=== PATIENT | female | born 1985 | race Caucasian/White ===

== ENCOUNTER 2017-07-08 14:59 | Inpatient (IN) | payer SELFPAY ==
[~2017-07-08] VITALS: Ht 167.6 cm; Wt 143.3 kg
[~2017-07-08 14:59] MED LIST: ACET-2222 PO; ACHD5005 PO; CEFU500T5 PO; CEPH-38 PO; CEPH500C PO; CLN150C PO; HYDR-3720 PO; HYDR1TAB8 PO; IBP600T1 PO; PREN1TAB39 PO
[2017-07-08 15:30] LABS: KETONES,URINE NEGATIVE (NEGATIVE); LEUKOCYTE ESTERASE ,URINE 2+ (NEGATIVE); NITRITE,URINE NEGATIVE (NEGATIVE); PH,URINE 6 (5-9); PROTEIN,URINE 2+ (NEGATIVE); UROBILINOGEN,URINE 4 MG/DL (NORMAL)
[2017-07-08 15:30] LABS: BASOPHILS % (AUTO) 0 % (0-10); EOSINOPHILS % (AUTO) 9 % (0-10); LYMPHOCYTES # (AUTO) 2.3 X 10^3 (1.0-4.0); LYMPHOCYTES % (AUTO) 19 % (12-44); MEAN CORPUSCULAR HEMOGLOBIN 30 PG (25-34); MEAN CORPUSCULAR HGB CONC 34 G/DL (32-36); MEAN CORPUSCULAR VOLUME 87 FL (80-99); MEAN PLATELET VOLUME 9.9 FL (7.4-10.4); MONOCYTES # (AUTO) 0.6 X 10^3 (0.0-1.0); MONOCYTES % (AUTO) 5 % (0-12); NEUTROPHILS # (AUTO) 7.7 X 10^3 (1.8-7.8); NEUTROPHILS % (AUTO) 66 % (42-75); PLATELET COUNT 277 10^3/uL (130-400); RED BLOOD COUNT 4.39 10^6/uL (4.35-5.85); RED CELL DISTRIBUTION WIDTH 13.1 % (10.0-14.5); WHITE BLOOD COUNT 11.7 10^3/uL (4.3-11.0)
[2017-07-08] MEDS ORDERED: fentaNYL INJECTION 100 MCG/2 ML AMP IVP ONE ×2 (15:30→17:15)
[2017-07-08] MEDS ORDERED: NS IV 1000 ML 1,000 ML IV SCH (15:30)
--- NOTE | 2017-07-08 15:30 | ED Back Pain ---
General Chief Complaint: Back Problems Stated Complaint: ABD CRAMPING/BACK PAIN Source of Information: Patient, EMS Notes Reviewed Exam Limitations: No Limitations History of Present Illness Time Seen by Provider: 15:23 Initial Comments This 31-year-old white female presents with complaint of lower thoracic upper lumbar pain that began approximately 36 hours ago. Patient was seen at [facility] and given a muscle relaxant which she has taken without improvement. The patient's pain is described as sharp in nature and radiates around the upper abdomen and the bandlike pattern. The patient describes sharp pain that is made worse with moving. The patient states that the pain is an 8 on a 10 scale. The patient's pain does not radiate down the legs. There is no associated weakness in the extremities. However there is also no dysuria or hematuria suggestive of a stone. There is no associated GI symptoms such as nausea or vomiting. Further history taking, however, patient relates that she has had previous kidney stones. Allergies and Home Medications Allergies Coded Allergies: No Known Drug Allergies (Verified , 07/08/17) Constitutional: No chills, No fever EENTM: No hearing loss Respiratory: No cough Cardiovascular: No chest pain Gastrointestinal: No abdominal pain, No diarrhea, No nausea, No vomiting Genitourinary: No dysuria, No frequency, No hematuria, other (dark urine noted in the ED.) : No Musculoskeletal: back pain Skin: No rash Psychiatric/Neurological: No Symptoms Reported Past Goqtoyk-Dbfylz-Rbrhqb Hx Patient Social History Alcohol Use: Denies Use Recreational Drug Use: No Smoking Status: Never a Smoker 2nd Hand Smoke Exposure: No Recent Foreign Travel: No Contact w/Someone Who Travel: No Recent Hopitalizations: No (CHILDBIRTH 2007 AND T & A 2001) Physical Abuse: No Sexual Abuse: No Mistreated: No Fear: No Immunizations Up To Date Tetanus Booster (TDap): Unknown Seasonal Allergies Seasonal Allergies: Yes Surgeries History of Surgeries: No (T & A 2001 WISDOM TEETH 2009) Respiratory History of Respiratory Disorde: No Cardiovascular History of Cardiac Disorders: No Neurological History of Neurological Disord: No Reproductive System Hx Reproductive Disorders: No Female Reproductive Disorders: Denies Gastrointestinal History of Gastrointestinal Di: No Musculoskeletal History of Musculoskeletal Dis: No Endocrine History of Endocrine Disorders: No Cancer History of Cancer: No Psychosocial History of Psychiatric Problem: No Suicide Risk Score: 0 Integumentary History of Skin or Integumenta: No Blood Transfusions History of Blood Disorders: No Reviewed Nursing Assessment Reviewed/Agree w Nursing PMH: Yes Family Medical History Significant Family History: No Pertinent Family Hx Physical Exam Vital Signs Vital Sign - Last 12Hours 07/08/17 15:17 Temp 98.3 Pulse 107 Resp 18 B/P (MAP) 133/89 Pulse Ox 99 Capillary Refill : General Appearance: WD/WN, Mild Distress HEENT: TMs Normal, Normal ENT Inspection Cardiovascular: Regular Rate, Rhythm Respiratory: Chest Non Tender, Lungs Clear Gastrointestinal: Normal Bowel Sounds, No Organomegaly, No Pulsatile Mass, Non Tender, Soft Back: Normal Inspection, No CVA Tenderness, No Vertebral Tenderness, No Decreased Range of Motion, No Muscle Spasm, Other Extremity: Normal Capillary Refill, Normal Inspection, Normal Range of Motion Neurologic/Psychiatric: Alert, Oriented x3, No Motor/Sensory Deficits, Normal Mood/Affect Skin: Normal Color, Warm/Dry Progress/Results/Core Measures Results/Orders Lab Results Laboratory Tests Test 07/08/17 15:17 07/08/17 15:22 Range/Units Urine Color KILEY H Urine Clarity SLIGHTLY CLOUDY Urine pH 6 5-9 Urine Specific [place] 1.020 1.016-1.022 Urine Protein 2+ H NEGATIVE Urine Glucose (UA) NEGATIVE NEGATIVE Urine Ketones NEGATIVE NEGATIVE Urine Nitrite NEGATIVE NEGATIVE Urine Bilirubin 1+ H NEGATIVE Urine Urobilinogen 4 H NORMAL MG/DL Urine Leukocyte Esterase 2+ H NEGATIVE Urine RBC (Auto) 3+ H NEGATIVE Urine RBC 10-25 H /HPF Urine WBC 5-10 H /HPF Urine Squamous Epithelial Cells >50 H /HPF Urine Crystals NONE /LPF Urine Bacteria MODERATE H /HPF Urine Casts NONE /LPF Urine Mucus NEGATIVE /LPF Urine Culture Indicated YES White Blood Count 11.7 H 4.3-11.0 10^3/uL Red Blood Count 4.39 4.35-5.85 10^6/uL Hemoglobin 13.1 11.5-16.0 G/DL Hematocrit 38 35-52 % Mean Corpuscular Volume 87 80-99 FL Mean Corpuscular Hemoglobin 30 25-34 PG Mean Corpuscular Hemoglobin Concent 34 32-36 G/DL Red Cell Distribution Width 13.1 10.0-14.5 % Platelet Count 277 130-400 10^3/uL Mean Platelet Volume 9.9 7.4-10.4 FL Neutrophils (%) (Auto) 66 42-75 % Lymphocytes (%) (Auto) 19 12-44 % Monocytes (%) (Auto) 5 0-12 % Eosinophils (%) (Auto) 9 0-10 % Basophils (%) (Auto) 0 0-10 % Neutrophils # (Auto) 7.7 1.8-7.8 X 10^3 Lymphocytes # (Auto) 2.3 1.0-4.0 X 10^3 Monocytes # (Auto) 0.6 0.0-1.0 X 10^3 Eosinophils # (Auto) 1.0 H 0.0-0.3 10^3/uL Basophils # (Auto) 0.0 0.0-0.1 10^3/uL Urine Test NEGATIVE NEGATIVE Sodium Level 138 135-145 MMOL/L Potassium Level 3.6 3.6-5.0 MMOL/L Chloride Level 103 98-107 MMOL/L Carbon Dioxide Level 26 21-32 MMOL/L Anion Gap 9 5-14 MMOL/L Blood Urea Nitrogen 11 7-18 MG/DL Creatinine 0.75 0.60-1.30 MG/DL Estimat Glomerular Filtration Rate > 60 BUN/Creatinine Ratio 15 Glucose Level 86 70-105 MG/DL Calcium Level 9.0 8.5-10.1 MG/DL Total Bilirubin 1.4 H 0.1-1.0 MG/DL Aspartate Amino Transf (AST/SGOT) 41 H 5-34 U/L Alanine Aminotransferase (ALT/SGPT) 53 0-55 U/L Alkaline Phosphatase 95 40-136 U/L Total Protein 7.8 6.4-8.2 GM/DL Albumin 4.3 3.2-4.5 GM/DL My Orders Orders - JIM HUFFMAN MD Cbc With Automated Diff (07/08/17 15:21) Comprehensive Metabolic Panel (07/08/17 15:21) Ua Culture If Indicated (07/08/17 15:21) Hcg,Qualitative Urine (07/08/17 15:21) Ns Iv 1000 Ml (Sodium Chloride 0.9%) (07/08/17 15:30) Fentanyl Injection (Sublimaze Injection (07/08/17 15:30) Urine Culture (07/08/17 15:17) Iohexol Injection (Omnipaque 350 Mg/Ml 1 (07/08/17 15:45) Ns (Ivpb) (Sodium Chloride 0.9% Ivpb Bag (07/08/17 15:45) Ct Abdomen/Pelvis W Wo (07/08/17 ) Diphenhydramine Injection (Benadryl Inje (07/08/17 16:15) Famotidine Injection (Pepcid Injection) (07/09/17 09:00) Diphenhydramine Injection (Benadryl Inje (07/08/17 15:54) Famotidine Injection (Pepcid Injection) (07/08/17 15:54) Medications Given in ED Current Medications Medications Dose Ordered Sig/[place] Route Start Time Stop Time Status Last Admin Dose Admin Diphenhydramine HCl 50 mg STK-MED ONCE .ROUTE 07/08/17 15:54 07/08/17 16:03 DC 07/08/17 16:04 50 MG Famotidine 20 mg STK-MED ONCE .ROUTE 07/08/17 15:54 07/08/17 16:03 DC 07/08/17 16:05 20 MG Fentanyl Citrate 50 mcg ONCE ONCE IVP 07/08/17 15:30 07/08/17 15:31 DC 07/08/17 15:30 50 MCG Iohexol 100 ml ONCE ONCE IV 07/08/17 15:45 07/08/17 15:46 DC 07/08/17 15:48 100 ML Sodium Chloride 100 ml ONCE ONCE IV 07/08/17 15:45 07/08/17 15:46 DC 07/08/17 15:48 80 ML Vital Signs/I&O Vital Sign - Last 12Hours 07/08/17 15:17 Temp 98.3 Pulse 107 Resp 18 B/P (MAP) 133/89 Pulse Ox 99 Progress Note : Time: 16:[address] of the pelvis and abdomen demonstrated a complex mass in the pelvis with associated diffuse peritoneal fluid suggestive of a metastatic process. Patient's pain was significantly improved with fentanyl 50 g IV. The patient upon returning from x-ray after contrast had redness that was noted to her skin. This resolved with 50 mg of Benadryl and 20 mg Pepcid IV. Telephone consultation was undertaken with Dr. Domínguez and Dr. Jules who admitted and agreed to consult on this patient. Departure Communication (Admissions) Time/Spoke to Admitting Phy: 16:[address] Domínguez for Dr. Sorto Time/Spoke to Consulting Phy: 16:53 Communication/Consulting Dr. Price. Impression Impression: Primary Impression: Abdominal pain Qualified Codes: R10.84 - Generalized abdominal pain Additional Impression: Pelvic mass Disposition: ADMITTED INPATIENT Condition: Improved Admissions Decision to Admit Reason: Admit from ER (General) Decision to Admit/Date: Jul 08, 2017 Time/Decision to Admit Time: 16:54 Departure-Patient Inst. Referrals: [facility] (PCP/Family) Primary Care Physician JIM HUFFMAN MD Jul 08, 2017 15:30
[2017-07-08 15:37] LABS: SQUAMOUS EPITHELIAL CELL,UR >50 /HPF
[2017-07-08 15:41] LABS: BILIRUBIN,URINE 1+ (NEGATIVE)
[2017-07-08] MEDS ORDERED: NS 100 ML (IVPB) BAG IV ONE (15:45)
[2017-07-08] MEDS ORDERED: IOHEXOL 350 MG/ML 100 ML (OMNIPAQUE 350) VIAL IV ONE (15:45)
[2017-07-08 15:51] LABS: ALANINE AMINOTRANSFERASE 53 U/L (0-55); ALBUMIN 4.3 GM/DL (3.2-4.5); ANION GAP 9 MMOL/L (5-14); ASPARTATE AMINO TRANSFERASE 41 U/L (5-34); BILIRUBIN,TOTAL 1.4 MG/DL (0.1-1.0); BLOOD UREA NITROGEN 11 MG/DL (7-18); BUN/CREATININE RATIO 15; CARBON DIOXIDE 26 MMOL/L (21-32); CHLORIDE 103 MMOL/L (98-107); CREATININE SERUM 0.75 MG/DL (0.60-1.30); GFR ESTIMATED > 60; GLUCOSE 86 MG/DL (70-105); POTASSIUM 3.6 MMOL/L (3.6-5.0); SODIUM 138 MMOL/L (135-145); TOTAL PROTEIN 7.8 GM/DL (6.4-8.2)
[2017-07-08] MEDS ORDERED: FAMOTIDINE 20MG/2ML IV (PEPCID) ONE (15:54)
[2017-07-08] MEDS ORDERED: diphenhydrAMINE 50 MG/ML INJ (BENADRYL) ONE (15:54)
[2017-07-08] MEDS ORDERED: diphenhydrAMINE 50 MG/ML INJ (BENADRYL) IM ONE (16:15)
--- NOTE | 2017-07-08 16:28 | Diagnostic Imaging Report ---
PROCEDURE: CT abdomen and pelvis with and without contrast. TECHNIQUE: Precontrast acquisitions were acquired through the abdomen and pelvis. Multiple contiguous axial images were obtained through the abdomen and pelvis after the administration of intravenous contrast. INDICATION: Back pain. Abdominal pain. Hematuria. History of renal stones. COMPARISON: CT abdomen and pelvis without contrast 03/12/2015. FINDINGS: Moderate to advanced ascites. There is diffuse stranding and subtle nodularity throughout the omentum. There is a large partially cystic heterogeneous mass centered in the pelvis, anterior to the uterus which measures at least 11.6 x 5.4 x 10.1 cm. Mild dependent atelectasis in the right lung base. There are no pulmonary nodules identified in the lung bases. The liver, gallbladder, pancreas, spleen, adrenals, kidneys, collecting systems and appendix are negative. There are well-circumscribed cysts in the region of the ovaries bilaterally measuring up to 3.9 on the right and 3.4 cm on the left. It is unclear if these are part of the mass in the pelvis. No free intraperitoneal air. No evidence of bowel obstruction. IMPRESSION: Heterogeneous mass in the pelvis with diffuse stranding and subtle nodularity of the omentum and moderate to advanced ascites. 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 Findings discussed with Dr. Harjeet Philip by Dr. Westbrook at 4:20 PM on 07/08/2017. Dictated by: Dictated on workstation # [id number]
[2017-07-08 17:22] VITALS: BP 142/86
[2017-07-08] MEDS ORDERED: CATHETER FLUSH 10 ML SYR IV PRN (17:45)
[2017-07-08] MEDS ORDERED: ONDANSETRON 4 MG/2 ML (SDV) Z0FRAN IV PRN (17:45)
[2017-07-08] MEDS: fentaNYL INJECTION 100 MCG/2 ML AMP IV PRN ×2 (19:08→23:08)
[2017-07-08 20:00] VITALS: BP 126/82
[2017-07-08] MEDS: CATHETER FLUSH 10 ML SYR IV SCH (23:13)
[2017-07-09] VITALS: BP 102/64
[2017-07-09 04:00] VITALS: BP 114/63
[2017-07-09] MEDS: fentaNYL INJECTION 100 MCG/2 ML AMP IV PRN ×4 (04:29→15:59)
[2017-07-09] MEDS: CATHETER FLUSH 10 ML SYR IV SCH ×3 (06:03→21:10)
[2017-07-09 06:54] LABS: BASOPHILS % (AUTO) 0 % (0-10); EOSINOPHILS # (AUTO) 1.2 10^3/uL (0.0-0.3); EOSINOPHILS % (AUTO) 13 % (0-10); LYMPHOCYTES % (AUTO) 22 % (12-44); MEAN CORPUSCULAR HEMOGLOBIN 30 PG (25-34); MEAN CORPUSCULAR HGB CONC 34 G/DL (32-36); MEAN CORPUSCULAR VOLUME 88 FL (80-99); MONOCYTES # (AUTO) 0.6 X 10^3 (0.0-1.0); MONOCYTES % (AUTO) 7 % (0-12); NEUTROPHILS # (AUTO) 5.3 X 10^3 (1.8-7.8); NEUTROPHILS % (AUTO) 58 % (42-75); PLATELET COUNT 262 10^3/uL (130-400); RED BLOOD COUNT 3.95 10^6/uL (4.35-5.85); RED CELL DISTRIBUTION WIDTH 13.1 % (10.0-14.5); WHITE BLOOD COUNT 9.1 10^3/uL (4.3-11.0)
[2017-07-09 07:06] LABS: ANION GAP 8 MMOL/L (5-14); BLOOD UREA NITROGEN 9 MG/DL (7-18); CARBON DIOXIDE 24 MMOL/L (21-32); CHLORIDE 106 MMOL/L (98-107); CREATININE SERUM 0.67 MG/DL (0.60-1.30); POTASSIUM 3.5 MMOL/L (3.6-5.0); SODIUM 138 MMOL/L (135-145)
[2017-07-09 07:07] LABS: ALANINE AMINOTRANSFERASE 47 U/L (0-55); ALBUMIN 3.6 GM/DL (3.2-4.5); ASPARTATE AMINO TRANSFERASE 30 U/L (5-34); BILIRUBIN,TOTAL 0.9 MG/DL (0.1-1.0); BUN/CREATININE RATIO 13; CALCIUM 8.7 MG/DL (8.5-10.1); GFR ESTIMATED > 60; GLUCOSE 94 MG/DL (70-105); TOTAL PROTEIN 6.7 GM/DL (6.4-8.2)
[2017-07-09 07:43] LABS: BAND NEUTROPHILS 0 %; LYMPHOCYTES % (MANUAL) 22 %; NEUTROPHILS % (MANUAL) 60 %
[2017-07-09 07:44] LABS: BASOPHILS % (MANUAL) 0 %; EOSINOPHILS % (MANUAL) 13 %
[2017-07-09 08:00] VITALS: BP 142/72
[2017-07-09] MEDS ORDERED: FAMOTIDINE 20MG/2ML IV (PEPCID) IVP SCH (09:00)
[2017-07-09] MEDS ORDERED: ALPRAZolam 0.25 MG (XANAX) TAB PO PRN (09:15)
[2017-07-09] MEDS ORDERED: ONDANSETRON 4 MG/2 ML (SDV) Z0FRAN IV NR (09:25)
[2017-07-09] MEDS ORDERED: ALPRAZolam 0.25 MG (XANAX) TAB PO NR (09:25)
--- NOTE | 2017-07-09 09:56 | History & Physical ---
History and Physical Date Seen by Provider: Jul 09, 2017 Time Seen by Provider: 09:38 This is my Consult note for patient Devendra Anderson - patient is in room 420 - reason for consultation is pelvic mass - consulting physician is noted on chart Mrs. Anderson is a 31-year-old white female who was admitted via the emergency department after workup for severe abdominal pain. That workup included a CT of the abdomen and pelvis. CT showed a complex pelvic mass with extensive ascites and with omental involvement. That report is on the chart. This patient's history is significant for having had a CT scan 2014 and workup for pelvic pain at which time an ureteral stone was diagnosed. Coincidental finding was of a right complex mass measuring up to 8 cm. Patient reports that no further workup was undertaken in regard to that finding. Patient reports that on subsequent [employer] exam when she had a Pap smear performed she asked about the mass finding on the previous CT and was told that it was nothing. Patient denies vaginal discharge or bleeding. Patient denies bowel or bladder problems. She reports having always had normal Pap smears. Patient had been apprised that there was some abnormal finding on her CAT scan in the emergency department last evening but was unaware of that particular findings or the significance and potential diagnoses for these findings I had a lengthy discussion regarding the patient's history her current finding and the need for definitive diagnosis for any etiology for these findings. The patient understands that a pelvic malignancy is of greatest concern but the differential diagnoses would also include benign etiologies for these findings. Answered the questions that patient post to me in regard to her current admission. Patient is awaiting valuation and discussion with her PCP. Allergies are per the patient report to me this morning is no medical allergies , however she does have listed an allergy to iodine contrast. medications prior to admission are none Past medical history is consistent for having had a kidney stone in 2014 at which time the initial CAT scan was done demonstrating a right ovarian mass as well Past surgical history includes a Tonsillectomy past obstetric history includes 2 pregnancies culminating in vaginal deliveries that were uncomplicated family History is negative for ovarian cancer, breast cancer, colon cancer, social history not obtained Physical exam - Limited exam performed HEENT exam is normal Neck is supple no lymphadenopathy no thyromegaly Abdomen is obese and nontender there is no specific palpable mass Extremities show no clubbing or cyanosis. There is no Homans sign Pelvic exam is deferred Lab is as follows Laboratory Tests Test 07/08/17 15:17 07/08/17 15:22 07/09/17 06:25 Range/Units Urine Color KILEY H Urine Clarity SLIGHTLY CLOUDY Urine pH 6 5-9 Urine Specific [place] 1.020 1.016-1.022 Urine Protein 2+ H NEGATIVE Urine Glucose (UA) NEGATIVE NEGATIVE Urine Ketones NEGATIVE NEGATIVE Urine Nitrite NEGATIVE NEGATIVE Urine Bilirubin 1+ H NEGATIVE Urine Urobilinogen 4 H NORMAL MG/DL Urine Leukocyte Esterase 2+ H NEGATIVE Urine RBC (Auto) 3+ H NEGATIVE Urine RBC 10-25 H /HPF Urine WBC 5-10 H /HPF Urine Squamous Epithelial Cells >50 H /HPF Urine Crystals NONE /LPF Urine Bacteria MODERATE H /HPF Urine Casts NONE /LPF Urine Mucus NEGATIVE /LPF Urine Culture Indicated YES White Blood Count 11.7 H 9.1 4.3-11.0 10^3/uL Red Blood Count 4.39 3.95 L 4.35-5.85 10^6/uL Hemoglobin 13.1 11.8 11.5-16.0 G/DL Hematocrit 38 35 35-52 % Mean Corpuscular Volume 87 88 80-99 FL Mean Corpuscular Hemoglobin 30 30 25-34 PG Mean Corpuscular Hemoglobin Concent 34 34 32-36 G/DL Red Cell Distribution Width 13.1 13.1 10.0-14.5 % Platelet Count 277 262 130-400 10^3/uL Mean Platelet Volume 9.9 10.0 7.4-10.4 FL Neutrophils (%) (Auto) 66 58 42-75 % Lymphocytes (%) (Auto) 19 22 12-44 % Monocytes (%) (Auto) 5 7 0-12 % Eosinophils (%) (Auto) 9 13 H 0-10 % Basophils (%) (Auto) 0 0 0-10 % Neutrophils # (Auto) 7.7 5.3 1.8-7.8 X 10^3 Lymphocytes # (Auto) 2.3 2.0 1.0-4.0 X 10^3 Monocytes # (Auto) 0.6 0.6 0.0-1.0 X 10^3 Eosinophils # (Auto) 1.0 H 1.2 H 0.0-0.3 10^3/uL Basophils # (Auto) 0.0 0.0 0.0-0.1 10^3/uL Urine Test NEGATIVE NEGATIVE Sodium Level 138 138 135-145 MMOL/L Potassium Level 3.6 3.5 L 3.6-5.0 MMOL/L Chloride Level 103 106 98-107 MMOL/L Carbon Dioxide Level 26 24 21-32 MMOL/L Anion Gap 9 8 5-14 MMOL/L Blood Urea Nitrogen 11 9 7-18 MG/DL Creatinine 0.75 0.67 0.60-1.30 MG/DL Estimat Glomerular Filtration Rate > 60 > 60 BUN/Creatinine Ratio 15 13 Glucose Level 86 94 70-105 MG/DL Calcium Level 9.0 8.7 8.5-10.1 MG/DL Total Bilirubin 1.4 H 0.9 0.1-1.0 MG/DL Aspartate Amino Transf (AST/SGOT) 41 H 30 5-34 U/L Alanine Aminotransferase (ALT/SGPT) 53 47 0-55 U/L Alkaline Phosphatase 95 83 40-136 U/L Total Protein 7.8 6.7 6.4-8.2 GM/DL Albumin 4.3 3.6 3.2-4.5 GM/DL Neutrophils % (Manual) 60 % Lymphocytes % (Manual) 22 % Monocytes % (Manual) 5 % Eosinophils % (Manual) 13 % Basophils % (Manual) 0 % Band Neutrophils 0 % Blood Morphology Comment NORMAL vital signs are as follows Vital Signs Date Time Temp Pulse Resp B/P (MAP) Pulse Ox O2 Delivery O2 Flow Rate FiO2 07/09/17 04:00 97.8 82 18 114/63 96 Room Air 07/09/17 00:00 97.2 85 18 102/64 96 Room Air 07/08/17 20:00 98.5 93 18 126/82 96 Room Air 07/08/17 17:22 98.6 94 16 142/86 97 Room Air 07/08/17 17:14 95 18 99 07/08/17 15:17 98.3 107 18 133/[address] is on the chart assessment and recommendations This patient's history past findings and current findings and presentation are concerning for a malignant process. other etiologies would include benign etiologies. Definitive diagnosis is necessary of course for any consideration of treatment options. I have recommended CT or ultrasound guided biopsies of the pelvic mass and/or aspiration of the ascites fluid. Radiology would be consulted for these diagnostic tests pending approval by this patient's primary provider, Dr. Sorto and PARTH et al. As noted above have discussed the current findings and history with the patient and her partner. She does understand the need for further evaluation and workup for definitive diagnosis and she understands the potential for findings of a malignancy. She further understands that additional evaluation and treatment likely will be required. Should this be a gynecologic malignancy, I would recommend referral to a [employer] oncologist. I am available if I can be of any further assistance. reason for consultation is pelvic mass Allergies and Home Medications Allergies Coded Allergies: Iodinated Contrast- Oral and IV Dye (Verified Allergy, Unknown, 07/08/17) Home Medications No Active Prescriptions or Reported Meds Clinical Quality Measures DVT/VTE Risk/Contraindication: Risk Factor Score Per Nursin RFS Level Per Nursing on Admit: 2=Moderate ARACELI WORRELL MD Jul 09, 2017 9:56 am
[2017-07-09] MEDS ORDERED: ACETAMINOPHEN 500 MG TAB (TYLENOL) ONE (11:34)
[2017-07-09] MEDS: ONDANSETRON 4 MG/2 ML (SDV) Z0FRAN IVP PRN (11:59)
[2017-07-09 12:00] VITALS: BP 133/82
[2017-07-09] MEDS ORDERED: ACETAMINOPHEN 500 MG TAB (TYLENOL) PO PRN (12:00)
[2017-07-09 15:53] VITALS: BP 115/70
[2017-07-09] MEDS: HYDROcodone/APAP 7.5 MG/325 MG (LORTAB, LORCET PLUS) TABLET PO PRN (19:43)
[2017-07-09 20:27] VITALS: BP 125/58
[2017-07-10] VITALS: BP 103/65
[2017-07-10] MEDS: HYDROcodone/APAP 7.5 MG/325 MG (LORTAB, LORCET PLUS) TABLET PO PRN ×2 (02:53→08:59)
[2017-07-10] MEDS: CATHETER FLUSH 10 ML SYR IV SCH ×2 (06:08→08:05)
[2017-07-10 08:00] VITALS: BP 132/64
[2017-07-10] MEDS: ONDANSETRON 4 MG/2 ML (SDV) Z0FRAN IVP PRN (08:04)
--- NOTE | 2017-07-10 12:21 | History & Physicial (CHS) ---
HPI History of Present Illness: 31 yo obese female that presented to ER with increasing lumbar back pain that started 2 days ago. She denies any trauma or injury to her back. + BM. Tolerating PO diet. Never had similar pain in the past. Denies any blood in stool or pain with urination. Source: patient, RN/MD, old records Exam Limitations: no limitations Date seen by provider: Jul 09, 2017 Time Seen by Provider: 14:00 Attending Physician Kit Sorto MD PCP [facility] [place] Consult Date of Admission Jul 08, 2017 at 16:49 Home Medications Home Medications Reviewed patient Home Medication Reconciliation Form Allergies Coded Allergies: Iodinated Contrast- Oral and IV Dye (Verified Allergy, Unknown, 07/08/17) ONH-Mlhlpk-Qzcpet Hx Patient Social History Living Status: Lives with Alcohol Use: Denies Use Recreational Drug Use: No Smoking Status: Never a Smoker 2nd Hand Smoke Exposure: No Recent Foreign Travel: No Contact w/other who traveled: No Recent Hopitalizations: No (CHILDBIRTH 2007 AND T & A 2001) Recent Infectious Disease Expo: No Physical Abuse Screen: No Sexual Abuse: No Immunizations Up To Date Tetanus Booster (TDap): Unknown Date of Influenza Vaccine: Jun 28, 2017 Past Medical History N/a Family Medical History Significant Family History: No Pertinent Family Hx Family History: Diabetes mellitus 19 FATHER Guillain-Winslow syndrome 19 MOTHER Review of Systems ([facility]C) Constitutional: no symptoms reported, No chills, No fever, No malaise, No weakness EENTM: no symptoms reported Respiratory: no symptoms reported, No cough, No dyspnea on exertion, No orthopnea, No short of breath Cardiovascular: no symptoms reported, No chest pain, No edema, No palpitations Gastrointestinal: abdominal pain (LLQ), No constipation, No diarrhea, No melena , nausea, No vomiting Genitourinary: no symptoms reported, No dysuria, No frequency, No hematuria : No Musculoskeletal: back pain Skin: no symptoms reported, No lesions, No rash Psychiatric/Neurological: Anxiety Reviewed Test Results Reviewed Test Results Lab Laboratory Tests Test 07/08/17 15:17 07/08/17 15:22 07/09/17 06:25 Range/Units Urine Color KILEY H Urine Clarity SLIGHTLY CLOUDY Urine pH 6 5-9 Urine Specific [place] 1.020 1.016-1.022 Urine Protein 2+ H NEGATIVE Urine Glucose (UA) NEGATIVE NEGATIVE Urine Ketones NEGATIVE NEGATIVE Urine Nitrite NEGATIVE NEGATIVE Urine Bilirubin 1+ H NEGATIVE Urine Urobilinogen 4 H NORMAL MG/DL Urine Leukocyte Esterase 2+ H NEGATIVE Urine RBC (Auto) 3+ H NEGATIVE Urine RBC 10-25 H /HPF Urine WBC 5-10 H /HPF Urine Squamous Epithelial Cells >50 H /HPF Urine Crystals NONE /LPF Urine Bacteria MODERATE H /HPF Urine Casts NONE /LPF Urine Mucus NEGATIVE /LPF Urine Culture Indicated YES White Blood Count 11.7 H 9.1 4.3-11.0 10^3/uL Red Blood Count 4.39 3.95 L 4.35-5.85 10^6/uL Hemoglobin 13.1 11.8 11.5-16.0 G/DL Hematocrit 38 35 35-52 % Mean Corpuscular Volume 87 88 80-99 FL Mean Corpuscular Hemoglobin 30 30 25-34 PG Mean Corpuscular Hemoglobin Concent 34 34 32-36 G/DL Red Cell Distribution Width 13.1 13.1 10.0-14.5 % Platelet Count 277 262 130-400 10^3/uL Mean Platelet Volume 9.9 10.0 7.4-10.4 FL Neutrophils (%) (Auto) 66 58 42-75 % Lymphocytes (%) (Auto) 19 22 12-44 % Monocytes (%) (Auto) 5 7 0-12 % Eosinophils (%) (Auto) 9 13 H 0-10 % Basophils (%) (Auto) 0 0 0-10 % Neutrophils # (Auto) 7.7 5.3 1.8-7.8 X 10^3 Lymphocytes # (Auto) 2.3 2.0 1.0-4.0 X 10^3 Monocytes # (Auto) 0.6 0.6 0.0-1.0 X 10^3 Eosinophils # (Auto) 1.0 H 1.2 H 0.0-0.3 10^3/uL Basophils # (Auto) 0.0 0.0 0.0-0.1 10^3/uL Urine Test NEGATIVE NEGATIVE Sodium Level 138 138 135-145 MMOL/L Potassium Level 3.6 3.5 L 3.6-5.0 MMOL/L Chloride Level 103 106 98-107 MMOL/L Carbon Dioxide Level 26 24 21-32 MMOL/L Anion Gap 9 8 5-14 MMOL/L Blood Urea Nitrogen 11 9 7-18 MG/DL Creatinine 0.75 0.67 0.60-1.30 MG/DL Estimat Glomerular Filtration Rate > 60 > 60 BUN/Creatinine Ratio 15 13 Glucose Level 86 94 70-105 MG/DL Calcium Level 9.0 8.7 8.5-10.1 MG/DL Total Bilirubin 1.4 H 0.9 0.1-1.0 MG/DL Aspartate Amino Transf (AST/SGOT) 41 H 30 5-34 U/L Alanine Aminotransferase (ALT/SGPT) 53 47 0-55 U/L Alkaline Phosphatase 95 83 40-136 U/L Total Protein 7.8 6.7 6.4-8.2 GM/DL Albumin 4.3 3.6 3.2-4.5 GM/DL Neutrophils % (Manual) 60 % Lymphocytes % (Manual) 22 % Monocytes % (Manual) 5 % Eosinophils % (Manual) 13 % Basophils % (Manual) 0 % Band Neutrophils 0 % Blood Morphology Comment NORMAL Radiology Date of Exam: 07/08/17 CT ABDOMEN/PELVIS W WO PROCEDURE: CT abdomen and pelvis with and without contrast. TECHNIQUE: Precontrast acquisitions were acquired through the abdomen and pelvis. Multiple contiguous axial images were obtained through the abdomen and pelvis after the administration of intravenous contrast. INDICATION: Back pain. Abdominal pain. Hematuria. History of renal stones. COMPARISON: CT abdomen and pelvis without contrast 03/12/2015. FINDINGS: Moderate to advanced ascites. There is diffuse stranding and subtle nodularity throughout the omentum. There is a large partially cystic heterogeneous mass centered in the pelvis, anterior to the uterus which measures at least 11.6 x 5.4 x 10.1 cm. Mild dependent atelectasis in the right lung base. There are no pulmonary nodules identified in the lung bases. The liver, gallbladder, pancreas, spleen, adrenals, kidneys, collecting systems and appendix are negative. There are well-circumscribed cysts in the region of the ovaries bilaterally measuring up to 3.9 on the right and 3.4 cm on the left. It is unclear if these are part of the mass in the pelvis. No free intraperitoneal air. No evidence of bowel obstruction. IMPRESSION: Heterogeneous mass in the pelvis with diffuse stranding and subtle nodularity of the omentum and moderate to advanced ascites. 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 Physical Exam-([facility]) Physical Exam Vital Signs VS - Last 72 Hours, by Label 07/08/17 07/08/17 07/08/17 07/08/17 15:17 17:14 17:22 20:00 Temp 98.3 98.6 98.5 Pulse 107 95 94 93 Resp 18 18 16 18 B/P (MAP) 133/89 142/86 126/82 Pulse Ox 99 99 97 96 O2 Delivery Room Air Room Air 07/09/17 07/09/17 07/09/17 07/09/17 00:00 04:00 08:00 12:00 Temp 97.2 97.8 98.2 97.2 Pulse 85 82 83 80 Resp 18 18 20 20 B/P (MAP) 102/64 114/63 142/72 133/82 Pulse Ox 96 96 97 96 O2 Delivery Room Air Room Air Room Air Room Air 07/09/17 07/09/17 07/09/17 07/10/17 15:53 19:50 20:27 00:00 Temp 98.6 97.3 96.8 Pulse 72 82 77 Resp 20 20 20 B/P (MAP) 115/70 125/58 103/65 Pulse Ox 96 94 95 O2 Delivery Room Air Room Air Room Air Room Air 07/10/17 07/10/17 08:00 08:00 Temp 96.8 Pulse 72 Resp 18 B/P (MAP) 132/64 Pulse Ox 95 O2 Delivery Room Air Room Air Capillary Refill : Less Than 3 Seconds General Appearance: WD/WN, no apparent distress, obese HEENT: PERRL/EOMI Neck: non-tender, full range of motion, supple Respiratory: chest non-tender, lungs clear, normal breath sounds, no respiratory distress, no accessory muscle use Cardiovascular: normal peripheral pulses, regular rate, rhythm, no edema, no murmur Gastrointestinal: normal bowel sounds, non tender, soft, no organomegaly Back: no CVA tenderness, vertebral tenderness (Lumbar) Extremities: normal range of motion, non-tender, normal inspection, no pedal edema, no calf tenderness, normal capillary refill 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
--- NOTE | 2017-07-10 12:22 | Discharge Summary ---
Diagnosis/Chief Complaint Date of Admission Jul 08, 2017 at 16:49 Date of Discharge 07/10/2017 Admission Diagnosis Admission Diagnosis Pelvic Mass Abdominal Pain Obesity Discharge Diagnosis See Above Chief Complaint/HPI Chief Complaint/HPI New onset abdominal pain. 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 Interventional Radiology: Pelvic mass Bx Discharge Physical Examination Allergies: Coded Allergies: Iodinated Contrast- Oral and IV Dye (Verified Allergy, Unknown, 07/08/17) Vitals & I&Os Vital Sign - Last 12Hours Date Time Temp Pulse Resp B/P (MAP) Pulse Ox O2 Delivery O2 Flow Rate FiO2 07/10/17 08:00 96.8 72 18 132/64 95 Room Air General Appearance: Alert, Oriented X3, Cooperative, No Acute Distress HEENT: Atraumatic, Mucous Memb Moist/[place] Respiratory: Clear to Auscultation, Normal Air Movement Cardiovascular: Regular Rate, No Murmurs Abdominal: Normal Bowel Sounds, Soft, No Tenderness, No Masses Extremities: No Edema, No Tenderness/Swelling Skin: No Rashes Neuro: Normal Speech, Strength at 5/5 X4 Ext, Sensation Intact, Cranial Nerves 3-12 NL Psych/Mental Status: Mental Status NL, Mood NL Hospital Course See final discharge diagnosis. Pending Labs - Pelvic Mass Bx scheduled for tomorrow, Results need follow up - CA 125: Pending Discussion & Recommendations 31 yo F with new pelvic mass. Will do outpatient biopsy tomorrow. Will follow closely. Pain well controlled on PO meds. Discharge Condition at discharge stable Instructions to patient/family Please see electronic discharge instructions given to patient. Discharge Medications Reviewed and agree with Discharge Medication list on patient's Discharge Instruction sheet Clinical Quality Measures DVT/VTE Risk/Contraindication: Risk Factor Score Per Nursin RFS Level Per Nursing on Admit: 2=Moderate Copy Copies To 1: KIT CLOUD MD, HOLLY R MD Jul 10, 2017 12:22
[2017-07-10] MEDS ORDERED: HYDR-3816 PO (12:24)
[2017-07-10] MEDS ORDERED: ONDA8TAB9 PO (12:24)
--- NOTE | 2017-07-10 12:29 | Discharge Instructions ---
Discharge [facility] Discharge Medications New, Converted or Re-Newed RX: RX on Chart New Medications: Ondansetron (Zofran Odt) 8 Mg Tab.rapdis 8 MG PO Q6H, #30 TAB Hydrocodone/Acetaminophen (Hydrocodon-Acetaminoph 7.5-325) 1 Each Tablet 1 EA PO Q6HR PRN for PAIN-MODERATE, #30 TAB Patient Instructions Goal/Follow Up Appt: You will have close followup Biopsy will be tomorrow Patient Instructions: - We will get biospy done and get results to you YULISSA - Make sure you are having bowel movements, take Miralax PRN Return to [facility] For: Pain not controlled with PO medications Activity & Diet Discharge Diet: No Restrictions Activity as Tolerated: Yes Copy Copies To 1: KIT CLOUD MD, HOLLY R MD Jul 10, 2017 12:29
== END 2017-07-10 13:20 | disposition home or self-care (01) | DRG 948 ==
LOC: EDUNIT# 14:59 → ER 15:01 → 4TH 16:49
PROVIDERS: ADMIT Family Medicine; ATTEND Family Medicine
DX: R18.8 Other ascites (principal); E66.9 Obesity, unspecified; Z87.442 Personal history of urinary calculi; Z68.43 Body mass index [BMI] 50.0-59.9, adult; R10.84 Generalized abdominal pain
CPT/HCPCS: 36415; 74178; 80053; 81000; 84703; 85007; 85025; 85027; 86304; 87088; 99284

== ENCOUNTER 2017-08-06 11:33 | Emergency (ER) | payer SELFPAY ==
[~2017-08-06] VITALS: Ht 167.6 cm; Wt 139.7 kg
[~2017-08-06 11:33] MED LIST changes: +HYDR-3816 PO; +ONDA8TAB9 PO
--- OUTSIDE RECORDS SUMMARY | 2017-08-06 11:43 | XMS REPORT | Encounter Summary ---
Author Author [facility] Organization [facility] Address Unknown Phone Unavailable Care Team Providers Care [employer]print [employer] Name Role Phone PCP Unavailable Encounter Details Date Type Department Care Team Description 07/28/2017 Pharmacy Visit [facility] [address] [place] [address] Social History Tobacco Use Types Packs/Day Years Used Date Passive Smoke Exposure - Never Smoker Smokeless Tobacco: Never Used Alcohol Use Drinks/Week oz/Week Comments No Sex Assigned at Date Recorded Not on file as of this encounter Functional Status Functional Status Response Date of Assessment Does the patient have a hearing impairment: No 07/25/2017 as of this encounter Plan of Treatment Not on fileas of this encounter Visit Diagnoses Not on filein this encounter
--- OUTSIDE RECORDS SUMMARY | 2017-08-06 11:43 | XMS REPORT | Encounter Summary ---
Author Author [facility] Organization [facility] Address Unknown Phone Unavailable Care Team Providers Care [employer] Name Role Phone PCP Unavailable Reason for Visit * Reason Comments Post-Op Problem Encounter Details Date Type Department Care Team Description 08/06/2017 Telephone [facility] Angelina Ramos MD Post-Op Problem Physicians - OBGYN [address] [place] [address] [address] MED [phone] [place] [address] Social History Tobacco Use Types Packs/Day Years Used Date Passive Smoke Exposure - Never Smoker Smokeless Tobacco: Never Used Alcohol Use Drinks/Week oz/Week Comments No Sex Assigned at Date Recorded Not on file as of this encounter Functional Status Functional Status Response Date of Assessment Does the patient have a hearing impairment: No 07/25/2017 as of this encounter Miscellaneous Notes * Telephone Encounter - Agnelina Ramos MD - 08/06/2017 11:22 AM 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 States that she is already on the way to her nearest emergency room [facility] in [place], [place]. Patient has an appointment with Dr. Elizabeth on Tuesday. Told patient to please call [facility] if she needs anything before her appointment, but agree with the plan to report to her local ED. Angelina Ramos MD in this encounter Plan of Treatment Not on fileas of this encounter Visit Diagnoses Not on filein this encounter
--- OUTSIDE RECORDS SUMMARY | 2017-08-06 11:43 | XMS REPORT | Encounter Summary ---
Author Author [facility] Organization [facility] Address Unknown Phone Unavailable Care Team Providers Care Environmental Science Program Director Name Role Phone PCP Unavailable Reason for Visit * Reason Comments Surgical Followup Encounter Details Date Type Department Care Team Description 07/29/2017 Telephone [facility] Wilma Elizabeth MD Surgical Followup [facility] [address] [address] [place] [address] [phone] Social History Tobacco Use Types Packs/Day Years [...] encounter Miscellaneous Notes * Telephone Encounter - Alix Burks RN - 07/29/2017 10:26 AM [employer]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 Is taking Oxycodone, Tyelnol, and Ibuprofen- states this is helping and pain is controlled. Fever: Afebrile Incision: Reports C/D/I- did instruct her to please call our immediately if she expereinces redness around incision site, pain, temperature, pus-like drainage , or foul-smelling odor, BM: States having regular BMs. Urination: Denies any burning, pain, frequency. Appetite: States appetite is baseline. Activity: Took shower today. Talked about incision care- washing with the soapy water and patting dry with towel. Questions: FMLA- let her know she can fax them or email them to us. Pt states will bring them at f/u appt on 08/08 Follow up Appointment: 08/08 with Inna at 3:00 pm. Encouraged her to call us if she experiences any concerns/questions. in this encounter Plan of Treatment Not on fileas of this encounter Visit Diagnoses Not on filein this encounter
--- OUTSIDE RECORDS SUMMARY | 2017-08-06 11:43 | XMS REPORT | Clinical Summary ---
Author Author [facility] Organization [facility] Address Unknown Phone Unavailable Care Team Providers Care Tread Builder Name Role Phone PCP Unavailable Source Comments Some departments are not documenting in the electronic medical record. If you do not see the information that you expected, contact Release of Information in the Health Information Management department at [phone] for further assistance in locating additional records.[facility] Allergies No Known Allergies Current Medications Prescription Sig. Disp. Refills Start End Date Status Date oxyCODONE (ROXICODONE, Take 1-3 tablets by mouth 65 tablet 0 07/28/20 Active OXY-IR) 5 mg tablet every 4 hours as needed 17 ZITHROMAX Z-JORGE 250 mg TAKE TWO TABLETS BY MOUTH 0 05/31/20 07/27/20 Discontin tablet ON DAY 1 THEN TAKE ONE 17 17 ued TABLET ON DAYS 2-5 prednisone (DELTASONE) 20 TAKE TWO TABLETS BY MOUTH 0 05/24/20 Discontin mg tablet ONCE DAILY FOR 5 DAYS 17 17 ued neomycin 500 mg tablet Take 2 tablets by mouth 6 tablet 0 07/21/20 07/25/20 Discontin as directed. Take 2 17 17 ued tablets at 1 pm, and 11pm the day prior to your surgery. metroNIDAZOLE (FLAGYL) Take 2 tablets by mouth 6 tablet 0 07/21/20 07/25/20 Discontin 500 mg tablet as directed. Take 2 pills 17 17 ued at 1pm, 3 pm, and 11 pm the day before your surgery. ondansetron (ZOFRAN ODT) Dissolve 1 tablet by 4 tablet 0 07/21/20 Discontin 8 mg rapid dissolve mouth every 8 hours as 17 17 ued tablet needed for Nausea or Vomiting. Place on tongue to disolve. 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 female 07/07/17 went to PCP for abdominal pain and muscle cramps. Given flexiril 10 and labs drawn. ME'ed home. 07/08/17 presented to [facility] ED in [place], [place] c/o increasing lumbar back pain x2 days. CT findings: mod-advanced ascites, diffuse stranding and subtle nodularity throughout omentum. Large partially cystic heterogenous mass centered in the pelvis, anterior to he uterus measuring at least 11.6 x 5.4 x 10.1cm. Well-circumscribed cyst in the region of the ovaries bilat measuring up to 3.9 on the right and 3.4cm on the left. Unclear if these are part of the mass. CA 125=65.0 07/09/17 S/P Ex Lap/RSO/L ovarian cystectomy 07/25/[address] HONG. Pathology with R ovary, struma ovarii. Arrives 08/08/17 for 2 week postoperative visit. Resolved Problems Problem Noted Date Resolved Date Ovarian mass, right 07/25/2017 08/03/2017 Malignant ascites 07/19/2017 08/03/2017 Carcinomatosis (HCC) 07/19/2017 08/03/2017 Pelvic mass in female 07/19/2017 08/03/2017 Encounters Date Type Specialty Care Team Description 08/06/2017 Telephone Obstetrics & Gynecology Angelina Ramos MD Post- Op Problem 07/29/2017 Telephone Oncology Cong Elizabeth MD Surgical Followup 07/28/2017 Pharmacy Visit 07/25/2017 [facility] Cong Elizabeth MD Pelvic mass in female - Encounter 07/28/2017 07/25/2017 Procedure Pass 07/25/2017 Surgery Cong Elizabeth MD EXPLORATORY LAPAROTOMY, RIGHT SALPINGO-OOPHORECTOMY, LEFT OVARIAN CYSTECTOMY 07/23/2017 Anesthesia Brennan Aguilar MD Event 07/21/2017 Telephone Oncology Cong Elizabeth MD Heme/Onc Care 07/21/2017 Orders Only Oncology Cong Elizabeth MD 07/20/2017 Prep for Case Cong Elizabeth MD 07/19/2017 Office Visit Oncology Cong Elizabeth MD Pelvic mass in female (Primary Dx);Carcinomatosis (HCC);Malignant ascites 07/19/2017 Documentation Oncology Opat Fanta 07/15/2017 Ancillary Radiology Outpatient, Radiologist Diagnosis unknown Orders 07/12/2017 Telephone Oncology Cong Elizabeth MD Navigation Assessment 07/08/2017 Hospital Radiology Encounter from Last 3 Months Family History Medical History Relation Name Comments Asthma Father Diabetes Father Hypertension Father Asthma Maternal Aunt Hypertension Maternal Aunt Diabetes Maternal Grandmother Stroke Maternal Grandmother High Cholesterol Mother Asthma Paternal Grandfather Diabetes Paternal Grandfather Heart Disease Paternal Grandfather Diabetes Paternal Grandmother Relation Name Status Comments Father Maternal Aunt Maternal Grandmother Mother Paternal Grandfather Paternal Grandmother Social History Tobacco Use Types Packs/Day Years Used Date Passive Smoke Exposure - Never Smoker Smokeless Tobacco: Never Used Alcohol Use Drinks/Week oz/Week Comments No Sex Assigned at Date Recorded Not on file Last Filed Vital Signs Vital Sign Reading Time Taken Blood Pressure 126/58 07/28/2017 12:10 PM LINE ORDERING CLINICIAN Pulse 79 07/28/2017 11:50 AM LINE ORDERING CLINICIAN Temperature 36.7 C (98 F) 07/28/2017 11:50 AM LINE ORDERING CLINICIAN Respiratory Rate 15 07/19/2017 10:08 AM LINE ORDERING CLINICIAN Oxygen Saturation 97% 07/28/2017 11:50 AM LINE ORDERING CLINICIAN Inhaled Oxygen - - Concentration Weight 137 kg (302 lb 0.5 oz) 07/25/2017 6:46 AM LINE ORDERING CLINICIAN Height 167.6 cm (5' 6") 07/25/2017 6:46 AM LINE ORDERING CLINICIAN Body Mass Index 48.75 07/25/2017 6:46 AM LINE ORDERING CLINICIAN Plan of Treatment Health Maintenance Due Date Last Done Comments PHYSICAL (COMPREHENSIVE) 12/01/1991 EXAM PERTUSSIS VACCINE 12/01/1995 TETANUS VACCINE 2001 CERVICAL CANCER SCREENING 2014 INFLUENZA VACCINE 04/12/2017 Procedures Procedure Name Priority Date/Time Associated Diagnosis Comments ANESTHESIA EPIDURAL BLOCK Routine 07/25/2017 Results for this 8:56 AM LINE ORDERING CLINICIAN procedure are in the results section. EXPLORATORY LAPAROTOMY, 07/25/2017 Pelvic mass in female RIGHT 7:15 AM LINE ORDERING CLINICIAN SALPINGO-OOPHORECTOMY, LEFT OVARIAN CYSTECTOMY Special Needs 07/21- CASE MOVED FROM 08/01 TO 07/25, REQUEST [id number] START, PER CHANGE FORM Leno MARY RN ([id number]) from Last 3 Months Results * CBC (07/27/2017 4:34 AM) Only the most recent of 2 results within the time period is included. Component Value Ref Range White Blood Cells 12.1 (H) 4.5 - 11.0 K/UL RBC 3.59 (L) 4.0 - 5.0 M/UL Hemoglobin 10.6 (L) 12.0 - 15.0 GM/DL Hematocrit 31.5 (L) 36 - 45 % MCV 87.6 80 - 100 FL MCH 29.5 26 - 34 PG MCHC 33.7 32.0 - 36.0 G/DL RDW 13.3 11 - 15 % Platelet Count 290 150 - 400 K/UL MPV 8.7 7 - 11 FL Specimen Performing Laboratory Blood MAIN LAB [address] [place] [address] * PHOSPHORUS (07/27/2017 4:34 AM) Only the most recent of 2 results within the time period is included. Component Value Ref Range Phosphorus 2.4 2.0 - 4.0 MG/DL Specimen Performing Laboratory Blood MAIN LAB [address] [place] [address] * MAGNESIUM (07/27/2017 4:34 AM) Only the most recent of 2 results within the time period is included. Component Value Ref Range Magnesium 2.2 1.6 - 2.6 mg/dL Specimen Performing Laboratory Blood MAIN LAB [address] [place] [address] * COMPREHENSIVE METABOLIC PANEL (07/27/2017 4:34 AM) Only the most recent of 3 results within the time period is included. Component Value Ref Range Sodium 140 137 - 147 MMOL/L Potassium 4.0 3.5 - 5.1 MMOL/L Chloride 109 98 - 110 MMOL/L Glucose 89 70 - 100 MG/DL Blood Urea Nitrogen 15 7 - 25 MG/DL Creatinine 0.81 0.4 - 1.00 MG/DL Calcium 8.6 8.5 - 10.6 MG/DL Total Protein 6.1 6.0 - 8.0 G/DL Total Bilirubin 0.6 0.3 - 1.2 MG/DL Albumin 3.2 (L) 3.5 - 5.0 G/DL Alk Phosphatase 59 25 - 110 U/L AST (SGOT) 21 7 - 40 U/L CO2 24 21 - 30 MMOL/L ALT (SGPT) 16 7 - 56 U/L Anion Gap 7 3 - 12 eGFR Non >60 >60 mL/min Comment: The eGFR is not validated for use in drug dosing adjustments. Continue to use estimated creatinine clearance per dosing reference text. Please contact the Clinical Pharmacist for questions. eGFR >60 >60 mL/min Comment: The eGFR is not validated for use in drug dosing adjustments. Continue to use estimated creatinine clearance per dosing reference text. Please contact the Clinical Pharmacist for questions. Specimen Performing Laboratory Blood [facility] [address] [place] [address] * NON-WEB PRESS ROLL TENDER CYTOLOGY (BODY FLUIDS/TISSUE) (07/25/2017 11:05 AM) Component Value Ref Range Cytology [facility] [email or web address] Department of Pathology and Laboratory Medicine [address] [place] [address] Surgical Pathology Office: [phone] CYTOLOGY REPORT NAME: DEVENDRA ROMERO CYTOLOGY #: [id number] MR #: [id number] ALT ID #: BILLING #: [id number] LOCATION: [facility] DATE OF PROCEDURE: 07/25/2017 AGE: 31 SEX: F DATE RECEIVED: 07/25/2017 : 1985 TIME RECEIVED: 11:05 PHYSICIAN: CONG PATTON DATE OF REPORT: 07/27/2017 COPY TO: DATE OF PRINTIN07/27/2017 Material Received: A: Abdominal Fluid History: 31-year old female with right ovarian mass. Gross Description: (1tp, 1dq,1 cell block) 100ml cloudy, dark red fluid. ################################################## ###################### Final Diagnosis: A. Abdominal Fluid: Acute inflammation. Negative for malignant cells. See comment. Please also see concurrent surgical pathology report ([id number]). Comment: Immunohistochemical stains on cell block show mesothelial cells that are positive for WT-1 and Calretinin, while MOC-31, Abdulaziz-EP4 and PAX-8 are negative. These results support above diagnosis. Attestation: By this signature, I attest that I have personally formulated the final interpretation expressed in this report and that the above diagnosis is based upon my examination of the slides and/or other material indicated in this report. +++Electronically Signed Out By+++ 07/26/2017 Interpreted by: ALBERTO Mcdowell MBBS Resident Specimen Performing Laboratory [facility] RESULTS * ANESTHESIA EPIDURAL BLOCK (07/25/2017 8:56 AM) Narrative Angelina Posada MD 07/25/20177:25 AM Anesthesia Procedure: Epidural Block EPIDURAL BLOCK Date/Time: 07/25/2017 7:14 AM Patient location: pre-op Reason for block: post-op pain management Preprocedure checklist performed: 2 patient identifiers, risks & benefits discussed, patient evaluated, timeout performed, consent obtained, patient being monitored, existing labs reviewed, no anticoagulant within risk period and sterile drape Sterile technique: - Proper hand washing - Cap, mask - Sterile gloves - Skin prep for antisepsis Epidural Procedure Patient position: sitting Prep: ChloraPrep Monitoring: BP, EKG and continuous pulse ox Approach: midline Location: thoracic Level/Interspace: T8-9 Injection technique: SHYAM saline Procedures: landmark technique Local infiltration: 1% lidocaine injected locally Number of attempts: 2 and 1 Needle/epidural catheter: Needle type: Tuohy Needle gauge: 18 G Needle length: 3.5 in Needle insertion depth: 9.5 cm Catheter type: multi orifice Catheter size: 20 G Catheter at skin depth: 15 cm Procedure Outcome Events: negative test dose, no paresthesia and negative aspiration test Patient tolerance of procedure: patient tolerated the procedure well with no immediate complications Refer to nursing documentation for vitals and monitoring data during procedure. Performed by: MAYTE JOSEPH Authorized by: MAYTE JOSEPH * SURGICAL PATHOLOGY (07/25/2017 8:51 AM) Component Value Ref Range PATHOLOGY REPORT [facility] [email or web address] Department of Pathology and Laboratory Medicine [address] [place] [address] Surgical Pathology Office: [phone] SURGICAL PATHOLOGY REPORT NAME: DEVENDRA ROMERO SURG PATH #: [id number] MR #: [id number] SPECIMEN CLASS: SR BILLING #: [id number] ALT ID #: LOCATION: DISCHARGED DATE OF PROCEDURE: 07/25/2017 AGE: 31 SEX: F DATE RECEIVED: 07/25/2017 : 1985 TIME RECEIVED: 08:51 PHYSICIAN: CONG ELIZABETH OBZeke DATE OF REPORT: 08/01/2017 COPY TO: DATE OF PRINTIN08/01/2017 ################################################## ###################### Final Diagnosis: A. Fallopian tube and ovary, right fallopian tube and ovary, salpingo-oophorectomy: Fallopian tube: No diagnostic abnormalities. Ovary: Struma ovarii with cystic changes. See comment. B. Ovary, left ovarian cyst wall, excision: Follicular cyst. Comment: The tumor cells are positive for TTF-1 and PAx-8 and negative for estrogen receptor and WT-1, supporting the above diagnosis. Pursuant to the [employer] Program at the [facility] Pathology Department, selected slides from this case have been concurrently reviewed by the following pathologist: Dr. Munguia who agrees with the final diagnosis. Attestation: By this signature, I attest that I have personally formulated the final interpretation expressed in this report and that the above diagnosis is based upon my examination of the slides and/or other material indicated in this report. +++ +++ ksw/07/25/2017 ################################################## ###################### Material Received: A: right fallopian tube and ovary B: left ovarian cyst wall History: 31-year-old female with a history of pelvic mass. Gross Description: A. Received fresh labeled patient's name and "right fallopian tube and ovary" is a salpingo-oophorectomy specimen consisting of a fallopian tube (6.6 cm in length by 0.9 cm in diameter) and ovary (150 grams, 12.5 x 9.6 x 3.9 cm). The external surface of the fallopian tube is pink-warren with multiple paratubal cysts each measuring 0.1 x 0.1 x 0.1 cm. The fallopian tube is serially sectioned to reveal a white-warren cut surface with a pinpoint lumen. The external surface of the ovary is white-warren with areas of erythema and brown-warren areas. The ovary is serially sectioned to reveal a multiloculated, cystic cut surface with cysts ranging from 0.3 x 0.2 x 0.2 cm to 10.1 x 9.6 x 1.9 cm. The largest cyst is previously opened by the surgeon. The wall of the largest cyst is pink-warren and thickened with areas of awrren-brown. The wall of the larger cyst ranges from 0.2 cm to 0.8 cm. The smaller cysts contain a yellow, watery fluid. No papillary excrescences are grossly identified. Bar And Filler Assembler sections are submitted as follows: A1FS Three separate areas of the ovary. A2 Bar And Filler Assembler sections of the fallopian tube and entire transected fimbriated end. A3-A8 Bar And Filler Assembler sections of smaller cysts (two fragments per cassette). A9-A11 Bar And Filler Assembler sections of larger cyst wall (three fragments per cassette). [id number] home furnishings sales representative sections of ovarian cyst (three fragments per cassette submitted on 07/26/2017). (sld) B. Received in formalin labeled patient's name and "left ovarian cyst wall" is a 3.0 x 1.5 x 0.3 cm aggregate of pink-warren, irregular fragments of tissue. The entire specimen is submitted in cassette B1. (jessicad) 07/25/2017 Intraoperative Consultation: A1FS, ovary, "right fallopian tube and ovary", excision: Cystic epithelial neoplasm defer to permanent. Sean Frausto MD If immunohistochemical stains and/or in situ hybridization are cited in this report, the performance characteristics were determined by the Department of Pathology and Laboratory Medicine of the [facility] ([employer]) in compliance with CLIA'88 regulations. Some of these tests rely on the use of "analyte specific reagents" and are subject to specific labeling requirements by the FDA. Known positive and negative control tissues demonstrate appropriate staining. Results should be interpreted with caution given the likelihood of false negativity on decalcified specimens. This testing was developed by the Department of Pathology and Laboratory Medicine of the [facility]. It has not been cleared or approved by the FDA. The FDA has determined that such clearance or approval is not necessary. Specimen Performing Laboratory [facility] RESULTS * TYPE & CROSSMATCH (07/25/2017 6:57 AM) Component Value Ref Range Units Ordered 0 Crossmatch Expires 07/28/2017 Record Check FOUND ABO/RH(D) O POS Antibody Screen NEG Electronic Crossmatch YES Specimen Performing Laboratory Blood MAIN LAB [address] [place] [address] * TEST-URINE (07/25/2017 6:20 AM) Component Value Ref Range Urine-HCG NEG Specific [place] 1.026 Specimen Performing Laboratory Urine MAIN LAB [address] [place] [address] * INHIBIN A & B TUMOR MARKER (07/19/2017 11:20 AM) Component Value Ref Range Inhibin B <10 Unit: pg/mL REFERENCE VALUE <139 (Premenopausal, Follicular) <92 (Premenopausal, Luteal) <10 (Postmenopausal) ADDITIONAL INFORMATION The testing method is a manual immunoenzymatic assay manufactured by [employer] Values obtained with different assay methods or kits may be different and cannot be used interchangeably. If this test is being ordered as a tumor marker, results cannot be interpreted as absolute evidence for the presence or absence of malignant disease. This test was developed and its performance characteristics determined by [facility] in a manner consistent with CLIA requirements. This test has not been cleared or approved by the U.S. Food and Drug Administration. [facility], [address] [place] [address] Inhibin-A (Dimer) 7.5 Comment: Unit: pg/mL REFERENCE VALUE <97.5 (Premenopausal) <2.1 (Postmenopausal) ADDITIONAL INFORMATION The testing method is an immunoenzymatic assay manufactured by [employer]. and performed on the [employer] 800. Values obtained with different assay methods or kits may be different and cannot be used interchangeably. Test results cannot be interpreted as absolute evidence for the presence or absence of malignant disease. Inhibin A values are not interpretable in females for the investigation of malignant disease. [facility], [address] [place] [address] Specimen Performing Laboratory Blood REFERENCE LAB * CA19.9 (07/19/2017 11:20 AM) Component Value Ref Range CA 19-9 53 (H) <35 U/ml Specimen Performing Laboratory Blood MAIN LAB [address] [place] [address] * ALPHA FETO PROTEIN (AFP) (07/19/2017 11:20 AM) Component Value Ref Range Alpha Feto Protein 1.2 0.0 - 15.0 NG/ML Specimen Performing Laboratory Blood MAIN [facility] [address] [place] [address] * PTT (APTT) (07/19/2017 11:20 AM) Component Value Ref Range APTT 28.2Comment: NOTE NEW REFERENCE RANGES 21.0 - 39.0 SEC Specimen Performing Laboratory Blood [facility] [address] [place] [address] * PROTIME INR (PT) (07/19/2017 11:20 AM) Component Value Ref Range INR 1.0 0.8 - 1.2 Specimen Performing Laboratory Blood MAIN [facility] [address] [place] [address] * CBC AND DIFF (07/19/2017 11:20 AM) Component Value Ref Range White Blood Cells 8.8 4.5 - 11.0 K/UL RBC 4.37 4.0 - 5.0 M/UL Hemoglobin 12.8 12.0 - 15.0 GM/DL Hematocrit 38.3 36 - 45 % MCV 87.8 80 - 100 FL MCH 29.3 26 - 34 PG MCHC 33.3 32.0 - 36.0 G/DL RDW 13.1 11 - 15 % Platelet Count 307 150 - 400 K/UL MPV 8.6 7 - 11 FL Neutrophils 46 41 - 77 % Lymphocytes 35 24 - 44 % Monocytes 6 4 - 12 % Eosinophils 12 (H) 0 - 5 % Basophils 1 0 - 2 % Absolute Neutrophil Count 4.00 1.8 - 7.0 K/UL Absolute Lymph Count 3.00 1.0 - 4.8 K/UL Absolute Monocyte Count 0.60 0 - 0.80 K/UL Absolute Eosinophil Count 1.00 (H) 0 - 0.45 K/UL Absolute Basophil Count 0.10 0 - 0.20 K/UL Specimen Performing Laboratory Blood [facility] [address] [place] [address] * TYPE & SCREEN (NOT CROSSMATCH ELIGIBLE) (07/19/2017 11:20 AM) Component Value Ref Range ABO/RH(D) O POS Antibody Screen NEG Blood Component Type RED CELL GROUP Specimen Performing Laboratory Blood, venous - Blood MAIN LAB [address] [place] [address] * CA125 (07/19/2017 11:20 AM) Component Value Ref Range CA-125 130 (H) <35 U/ml Specimen Performing Laboratory Blood MAIN LAB [address] [place] [address] * BETA-HCG (07/19/2017 11:20 AM) Component Value Ref Range Beta-HCG,Serum <1 <5 U/L Specimen Performing Laboratory Blood [facility] [address] [place] [address] * LDH-LACTATE DEHYDROGENASE (07/19/2017 11:20 AM) Component Value Ref Range Lactate Dehydrogenase 136 100 - 210 U/L Specimen Performing Laboratory Blood [facility] [address] [place] [address] * CEA(CARCINOEMBRYONIC AG) (07/19/2017 11:20 AM) Component Value Ref Range CEA 0.3 <3.0 NG/ML Specimen Performing Laboratory Blood [facility] [address] [place] [address] * CT ABD/PEL EXTERNAL IMAGING (07/08/2017) Narrative This order has been auto finalized and does not contain a result. from Last 3 Months
--- OUTSIDE RECORDS SUMMARY | 2017-08-06 11:43 | XMS REPORT | Continuity of Care Document ---
Author Author [employer] Organization [facility] Address Unknown Phone Unavailable Care Team Providers Care Hand Trucker Name Role Phone [employer] Unavailable Unavailable Problems Medications Allergies, Adverse Reactions, Alerts Immunizations Results Vital Signs Encounters Location Location Details Encounter Type Encounter Number Reason For Visit Attending Provider ADM Date DC Date Status Source CA SERIES [id number] 07/19/2017 07/19/2017 Active [facility] O [id number] CONG PHAN 07/25/2017 Active [facility] OUTPATIENT [id number] 07/27/2017 Active [facility] O HUMBERTO LONG Active [facility] Procedures Plan of Care Social History Assessment and Plan Family History Value Date Source Advance Directives Order Name Results Value Date Source
--- OUTSIDE RECORDS SUMMARY | 2017-08-06 11:44 | XMS REPORT | Encounter Summary ---
Author Author [facility] Organization [facility] Address Unknown Phone Unavailable Care Team Providers Care Digital Court Reporter Name Role Phone PCP Unavailable Reason for Visit * Auth/Cert Status Reason Specialty Diagnoses / Referred By Referred To Procedures Contact Contact Diagnoses Pelvic mass in female U NKNOWN Ovarian mass, right P rocedures FL BSO W/OMENTECTOMY BRIAN DEBULKING W/LMPHADECTOMY DEBULKING TUMOR OVARY,TOTAL ABDOMINAL HYSTERECTOMY, BILATERAL SALPINGOOOPHOREC JESU, OMENTECTOMY, PELVIC AND PARA-AORTIC LYMPH NODE DISSECTION, DIAPHRAGM STRIPPING, POSSIBLE BOWEL RESECTION Encounter Details Date Type Department Care Team Description 07/25/2017 [place] [id number] Cong Elizabeth MD Pelvic mass [facility] female - [facility] [id number] [facility] [address] [facility] [address] 07/28/2017 [place] [address] [place] [address] [phone] Social History Tobacco Use Types Packs/Day Years Used Date Passive Smoke Exposure - Never Smoker Smokeless Tobacco: Never Used Alcohol Use Drinks/Week oz/Week Comments No Sex Assigned at Date Recorded Not on file as of this encounter Last Filed Vital Signs Vital Sign Reading Time Taken Blood Pressure 126/58 07/28/2017 12:10 PM UNDERWRITING OPERATIONS MANAGER Pulse 79 07/28/2017 11:50 AM UNDERWRITING OPERATIONS MANAGER Temperature 36.7 C (98 F) 07/28/2017 11:50 AM UNDERWRITING OPERATIONS MANAGER Respiratory Rate - - Oxygen Saturation 97% 07/28/2017 11:50 AM UNDERWRITING OPERATIONS MANAGER Inhaled Oxygen - - Concentration Weight 137 kg (302 lb 0.5 oz) 07/25/2017 6:46 AM UNDERWRITING OPERATIONS MANAGER Height 167.6 cm (5' 6") 07/25/2017 6:46 AM UNDERWRITING OPERATIONS MANAGER Body Mass Index 48.75 07/25/2017 6:46 AM UNDERWRITING OPERATIONS MANAGER in this encounter Functional Status Functional Status Response Date of Assessment Does the patient have a hearing impairment: No 07/25/2017 as of this encounter Discharge Summaries * Alix Humphries PA-C - 07/28/2017 2:57 PM UNDERWRITING OPERATIONS MANAGER Formatting of this note may be different from the original. Physician Discharge Summary Name: Devendra Romero Date Of : 1985 Age: 31 years Admit date: 07/25/2017 Discharge date: 07/28/2017 Attending Physician: Savi Service: Gynecology Oncology Physician Summary completed by: Alix Humphries PA-C Reason for hospitalization: Planned procedure Significant PMH: History reviewed. No pertinent past medical history. Allergies: Review of patient's allergies indicates no known allergies. Admission Physical Exam notable for: BP 144/68 (BP Source: Arm, Right, Patient Position: Sitting) | Pulse 54 | Temp 37.1 C (98.7 F) (Oral) | Resp 15 | Ht 167.6 cm (66") | Wt (!) 139.8 kg ( 308 lb 3.2 oz) | LMP 07/06/2017 (Exact Date) | SpO2 100% | BMI 49.74 kg/m2 GENERAL APPEARANCE: Appears healthy. Alert; in no acute distress. Pleasant. HEENT: Unremarkable. No tenderness or masses noted. NECK: Neck supple. No tenderness. No adenopathy. BREAST: symmetric, nipples normal, no masses or skin changes LUNGS: Chest symmetrical. Good diaphragmatic excursion. Lungs clear; normal breath sounds. CARDIOVASCULAR: RRR. Heart sounds normal. ABDOMEN: Abdomen soft, non-tender. No masses, organomegaly, or hernia. No clinical evidence of ascites. Morbid obesity with large pannus- unable to appreciate mass or ascites under pannus. PELVIC: External genitalia,urethral meatus, urethra, bladder and vagina normal. Cervix, uterus normal size, adnexae not palpable. Anus and perineum normal. Bimanual without masses or nodularity on the pelvic floor. Exam chaperoned by nurse EXTREMITIES: Extremities normal. No joint deformities, edema, or skin discoloration. Station and gait normal. SKIN: Skin color, texture, turgor normal. No rashes or lesions. LYMPH NODES: No palpable l ymph nodes Admission Lab/Radiology studies notable for: CT reviewed, large complex mass and ascites, omental caking Ca 125 65 Brief Hospital Course: Patient with a large complex mass admitted for planned exploratory laparotomy, RSO, and ovarian cystectomy. Frozen section was benign. No surgical complications. PCEA for pain control. POD #1: Had episode of emesis overnight. Having persistent pain - anesthesia added MANAGER GENERATION. POD #2: Pain controlled. No nausea/vomiting. Tolerating regular diet. Voiding without difficulty. PCEA removed. POD #3: Patient ambulating and meeting all post-operative goals. Discharge to home. Condition at Discharge: Stable Discharge Diagnoses: S/p exploratory laparotomy Hospital Problems Active Problems Ovarian mass, right Surgical Procedures: EXPLORATORY LAPAROTOMY, RIGHT SALPINGO-OOPHORECTOMY, LEFT OVARIAN CYSTECTOMY Significant Diagnostic Studies and Procedures: none Consults: None Patient Disposition: Home Patient instructions/medications: Driving Restrictions No driving while taking pain medication. Report These Signs and Symptoms Please notify physician if experiencing any chest pain, shortness of breath, calf tenderness or unilateral leg swelling, uncontrolled pain, incision redness or foul smelling drainage from wound, fevers >101.5, or any other worsening signs/symptoms. Questions About Your Stay For questions or concerns regarding your hospital stay: - DURING BUSINESS HOURS (8:00 AM - 4:30 PM): Call [phone] and asked to be transferred to your discharge attending physician. - AFTER BUSINESS HOURS (4:30 PM - 8:00 AM, on weekends, or holidays): Call [phone] and ask the air shovel operator to page the on-call doctor for the discharge attending physician. Discharging attending physician: SPENCER HOU [[id number]] Regular Diet You have no dietary restriction. Please continue with a healthy balanced diet. Additional Discharge Instructions DISCHARGE INSTRUCTIONS: BRIEF HOSPITAL COURSE You were admitted and taken to the operating room by Dr. Elizabeth and underwent the following surgical procedure: Exploratory laparotomy, right salpingo-oopherectomy, ovarian cystectomy PATHOLOGY REPORT pending - to be discussed at your follow-up appointment DISCHARGE MEDICATIONS: Lovenox injections daily for 1 month to prevent blood clots Oxycodone 5 mg by mouth every 4 to 6 hours as needed for pain. PRESCRIPTION GIVEN. Senokot S 1-2 tablets by mouth daily as needed for constipation. Want a bowel movement every day or every other day. DO NOT CONTINUE ( OR HOLD) IF HAVE DIARRHEA. Tylenol (over the counter) 1000 mg by mouth every 6 hours as needed for pain Ibuprofen (over the counter) 600 mg by mouth every 6 hours as needed for pain CONTACT INFO: For all questions and concerns, please contact Dr. Elizabeth's nurse at Tuesday-Tuesday from 8 am until 4 pm. If you do not get a return call within 30-60 minutes, please call [phone] and have the Gynecology Oncology resident paged. If you have an emergency during the evening, night or weekend, please call the page air shovel operator at [phone] and ask to have the gynecologic oncology service paged. If you do not hear back from the resident within 15-30 minutes, call back and have the attending physician paged. Examples of emergencies include: 1. Oral temperature greater than 101 degrees. 2. Abdominal pain not relieved by prescribed pain medications. 3. Redness or puss-like drainage from the incision. 4. Persistent nausea or vomiting and the inability to drink fluids. 5. Vaginal bleeding at a rate that soaks a maxi-pad in 1-hour. 6. If you have a LIYA Drain, and if the color is CLOUDY/WHITE or if the white part of the drain is showing outside of the incision. FOLLOW-UP APPOINTMENT The patient is to follow-up with Dr[facility]. If you need to change the date or time, please call your office nurse at: If your pathology report was not back and available for discussion while you were in the hospital, it will be discussed at your follow-up appointment. RESTRICTIONS Restrictions are as follows for 6-8-weeks after surgery: The patient is not to lift greater than 15 pounds for six to eight weeks. This includes strenuous housework such as vacuuming, heavy laundry, or lifting heavy groceries. She is not to drive while taking narcotic pain medication. She may resume driving when she is no longer taking narcotics and feels comfortable making the maneuvers required to operate an automobile safely. For a large abdominal incision this is usually 3 weeks. Patients may take Daily showers only for 6-8 weeks; then may resume bathing in the tub daily. Patients are often constipated after a prolonged period of bedrest or with use of narcotic pain medications. If you have not had a bowel movement for 3 days after dismissal, or are uncomfortable and unable to pass stool, please try one or all of the following measures: 1. Milk of Magnesia - 30 cc by mouth every 12 hours 2. Dulcolax suppository - one suppository per rectum every 6 hours 3. Metamucil, Fibercon or other bulk former - use as directed 4. Fleets Enema 5. Prunes or Prune Juice Please contact the message center if these measures are unsuccessful or accompanied by severe abdominal pain, nausea and emesis, or fever. HOME MEDICATIONS: Please resume all of your home medications unless otherwise directed by your physician. If you are on any blood thinners, such as coumadin, lovenox, plavix please make sure that you understand when you are to restart these medications or when to go off of them. If you are diabetic, please make sure that you are monitoring your blood sugars closely. Current Discharge Medication List START taking these medications Details oxyCODONE (ROXICODONE, OXY-IR) 5 mg tablet Take 1-3 tablets by mouth every 4 hours as needed Qty: 65 tablet, Refills: 0 PRESCRIPTION TYPE: Print The following medications were removed from your list. This list includes medications discontinued this stay and those removed from your prior med list in our system metroNIDAZOLE (FLAGYL) 500 mg tablet neomycin 500 mg tablet ondansetron (ZOFRAN ODT) 8 mg rapid dissolve tablet prednisone (DELTASONE) 20 mg tablet ZITHROMAX Z-JORGE 250 mg tablet Scheduled appointments: Aug 08, 2017 3:00 PM UNDERWRITING OPERATIONS MANAGER (Arrive by 2:45 PM) Mid-Level Visit with Inna Lemon APRN [facility] ([facility] Exam) [address] [place] [id number] Aug 23, 2017 11:15 AM UNDERWRITING OPERATIONS MANAGER (Arrive by 11:00 AM) Post-Op with Cong Elizabeth MD [facility] ([facility] Exam) [address] [place] [employer] [id number] Pending items needing follow up: Post-op check. Low threshold for wound infection given body habitus. Signed: Alix Humphries PA-C 07/28/2017 cc: Primary Care Physician: Carlie Sorto Verified Referring physicians: Carlie Sorto MD Additional provider(s): in this encounter Medications at Time of Discharge Medication Sig. Disp. Refills Start Date End Date oxyCODONE (ROXICODONE, Take 1-3 tablets by mouth 65 tablet 0 2016 OXY-IR) 5 mg tablet every 4 hours as needed as of this encounter Progress Notes * Lyndsey Barriga - 07/28/2017 2:57 PM UNDERWRITING OPERATIONS MANAGER Devendra Romero discharged on 07/28/2017. . Discharge instructions reviewed with patient and her . Valuables returned: yes Personal Items / Valuables: Clothing, Eyeglasses/Contacts Where Are Valuables Stored?: pts belongings with pts family. Home medications: N/A . Functional assessment at discharge complete: yes Peripheral catheters removed x2. Education regarding signs and symptoms of infection, medications, return appointments, restrictions and hard copy scripts handed to pt. Pt and verbalize understanding, Pt left unit via wheelchair with and belongings. * Radha Renae RN - 07/28/2017 12:38 PM UNDERWRITING OPERATIONS MANAGER I have reviewed the notes, assessments, and/or procedures performed by Lyndsey Barriga RN and concur with her/his documentation unless otherwise noted. * Mireya Corrigan MD - 07/28/2017 6:23 AM UNDERWRITING OPERATIONS MANAGER Formatting of this note may be different from the original. Gynecology/Oncology Post-operative Progress Note ELECTRIC TRAIN DRIVER/ONC Post-operative Day 3 Subjective Her pain is under control. She is urinating and passing gas. She is able to ambulate. She denies nausea or vomiting and tolerates a reg diet. Objective Patient Vitals for the past 24 hrs: BP Temp Pulse SpO2 07/28/17 0529 133/82 36.8 C (98.2 F) 64 98 % 07/27/17 2303 156/75 36.7 C (98 F) 72 98 % 07/27/17 2020 153/76 36.9 C (98.4 F) 62 97 % 07/27/17 1509 135/55 36.8 C (98.2 F) 68 96 % 07/27/17 1200 112/79 36.6 C (97.8 F) 58 96 % 07/27/17 0733 130/60 36.5 C (97.7 F) 50 94 % Physical Exam: General: No acute distress. Heart: Regular rate and rhythm. Lungs: Clear to auscultation bilaterally. Abdomen: Soft, appropriately tender to palpation. Non-distended. Positive bowel sounds. Incision: Clean, dry and intact. No erythema or induration. in place. Extremities: No edema BL LE. Lab Review: 24-hour labs: No results found for this visit on 07/25/17 (from the past 24 hour(s)). Intake/Output Summary (Last 24 hours) at 07/28/17 0623 Last data filed at 07/28/17 0529 Gross per 24 hour Intake 630 ml Output 1500 ml Net -870 ml Access: PUV x 2, pcea, rodriguez acetaminophen 650 mg Oral Q6H* enoxaparin 40 mg Subcutaneous BID famotidine 20 mg Oral BID ibuprofen 600 mg Oral Q6H polyethylene glycol 3350 17 g Oral QDAY senna/docusate 1 tablet Oral BID diphenhydrAMINE 25 mg Intravenous Q4H PRN naloxone 0.08 mg Intravenous PRN naloxone 0.08 mg Intravenous PRN ondansetron 4-8 mg Intravenous Q6H PRN oxyCODONE 5-15 mg Oral Q4H PRN prochlorperazine 10 mg Intravenous Q6H PRN Point of Care Testing: (Last 24 hours): Assessment Active Problems: Ovarian mass, right 31 y.o. with Adnexal mass POD # 2 s/p Ex lap, RSO, left cytectomy FS: epitheleal neoplasm, benign Plan CV: -RRR, normotensive, continue to monitor Pulm: -on RA, encourage IS use GI: -On reg diet, bowel regimen, anti-emetics prn : - UOP appropriate, Cr stable MS: - encourage ambulation with assistance FEN: - Will d/c IVF monitor and replace lytes prn Heme/Onc: CBC stable Hgb 11.3, WBC 13.0, plts 323 -pathology pending, f/u Pain: -On oral pain meds ID: - received Ancef prior to procedure Neuro/psych: -NA Endo: -NA Prophylaxis: - lovenox, SCDs, IS, pepcid Access/Drains: -PIV x 2 Discharge planning: Disposition:Will discharge today. She does not need lovenox! -Discuss with Dr. Savi Corrigan MD Obstetrics & Gynecology PGY-4 Robotics Systems Engineer Onc Pager [phone] Associated attestation - Spencer Hou MD - 07/28/2017 6:30 PM UNDERWRITING OPERATIONS MANAGER I personally performed the welch portions of the E/M visit, discussed case with the resident and concur with resident documentation of history, physical exam, assessment, and treatment plan, unless otherwise noted. No acute complaints. Afeb. VSS Gen: NAD Abdomen: Soft. NT Inc C/D/I Stable for discharge. Instructions and precautions given. Spencer Hou MD, FACOG, FACS Gynecologic Oncology Pager: [phone] * Radha Renae RN - 07/27/2017 11:21 AM UNDERWRITING OPERATIONS MANAGER I have reviewed the notes, assessments, and/or procedures performed by Lyndsey Barriga RN and concur with her documentation unless otherwise noted. * Angelina Posada MD - 07/27/2017 9:41 AM UNDERWRITING OPERATIONS MANAGER Formatting of this note may be different from the original. Anesthesiology Acute Pain Service Date of Service: 07/27/2017 Name: Devendra Romero is a 31 y.o. female : 1985 PROCEDURE: Procedure(s) with comments: EXPLORATORY LAPAROTOMY, RIGHT SALPINGO-OOPHORECTOMY, LEFT OVARIAN CYSTECTOMY - CASE LENGTH 4 HOURS, REQUEST 0730 START POD #: 2 ANALGESIA TECHNIQUE Epidural catheter: bupivacaine 0.1% ADJUNCT ANALGESIA MEDICATIONS oxycodone acetaminophen PO ibuprofen TREATMENT PLAN Catheter removed with tip intact and Discontinued therapy, convert to oral pain medication, analgesia to be provided by primary team Last lovenox 07/26 0949, catheter removed at 07/27 0810, can resume lovenox 4 hours after catheter removed. Anesthesia Pain pager: [phone] No Known Allergies Inpatient Medications Scheduled Meds: acetaminophen (TYLENOL) tablet 650 mg 650 mg Oral Q6H* famotidine (PEPCID) tablet 20 mg 20 mg Oral BID ibuprofen (MOTRIN) tablet 600 mg 600 mg Oral Q6H polyethylene glycol 3350 (MIRALAX) packet 17 g 17 g Oral QDAY senna/docusate (SENOKOT-S) tablet 1 tablet 1 tablet Oral BID Continuous Infusions: PRN and Respiratory Meds:diphenhydrAMINE Q4H PRN, naloxone PRN, naloxone PRN, ondansetron Q6H PRN, oxyCODONE Q4H PRN, prochlorperazine Q6H PRN Anticoagulants HPI Visual Analog Scale (VAS) (0-10 Scale) At rest: 2 Patient satisfied with pain control: Yes Side Effects: none EXAM Recent Vitals Vital Signs: 24 Hour Range BP: 130/60 (07/27 733) Temp: 36.5 C (97.7 F) (07/27 733) Pulse: 50 (07/27 733) Respirations: 16 PER MINUTE (07/27 733) SpO2: 94 % (07/27 733) O2 Delivery: None (Room Air) (07/27 733) BP: (106-136)/(50-60) Temp: [36.3 C (97.4 F)-36.9 C (98.4 F)] Pulse: [50-58] Respirations: [16 PER MINUTE] SpO2: [93 %-95 %] O2 Delivery: None (Room Air) Lab Results Component Value Date PLTCT 290 07/27/2017 WBC 12.1 07/27/2017 HGB 10.6 07/27/2017 HCT 31.5 07/27/2017 CR 0.81 07/27/2017 PTT 28.2 07/19/2017 INR 1.0 07/19/2017 Level of Consciousness: Awake/alert Neurologic Function Sensory block: Yes Motor: No Insertion Site: Site clean and nontender Associated attestation - Negro Galvez MD - 07/27/2017 2:47 PM UNDERWRITING OPERATIONS MANAGER ATTESTATION I personally observed the resident performing the E/M, discussed case with resident, and concur with resident documentation of history, physical assessment and treatment plan unless otherwise noted. * Socorro Mukherjee, RT - 07/27/2017 9:18 AM UNDERWRITING OPERATIONS MANAGER Formatting of this note may be different from the original. RESPIRATORY THERAPY ADULT PROTOCOL EVALUATION RESPIRATORY PROTOCOL PLAN Medications Note: If indicated by protocol, medication orders will be placed by therapist. Procedures PEP Therapy: Place a nursing order for "IS Q1h While Awake" for any of Lung Expansion indicators Oxygen/Humidity: Discontinued Monitoring: Discontinued PATIENT EVALUATION RESULTS Chart Review * Pulmonary Hx: Smoker in home OR smoking cessation > 8 weeks * Surgical Hx: Thoracic or abdominal surgery/injury (LE) * Chest X-Ray: Clear OR not available * PFT/Oxygenation: FEV1, PEFR > 80% predicted OR physically unable to perform OR Pa02 >80 RA OR Sp02 >95% RA Patient Assessment * Respiratory Pattern: Regular pattern and rate OR good chest excursion with deep breathing * Breath Sounds: Clear and able to auscultate bases posteriorly * Cough / Sputum: Strong, effective cough OR nonproductive * Mental Status: Alert, oriented, cooperative * Activity Level: Ambulatory Priority Index Total Points: 4 Points * Priority Index: 1 PRIORITY INDEX GUIDELINES* Priority Points 1 0-9 points 2 9-18 points 3 > 18 points + Pulm Dx or Home Rx *Higher points indicate higher acuity. Therapist: SOCORRO MUKHERJEE, RT Date: 07/27/2017 [place] AC=Airway clearance AM=Aerosolized medication BA=[place] aerosol DB&C=Deep breathe & cough FEV1=Forced expiratory volume in first second) IC=Inspiratory capacity LE=Lung expansion MDI=Metered dose inhaler Neb=Nebulizer O2=Oxygen Oxim=Oximetry PEFR=Peak expiratory flow rate COPPER PLATER=Rapid Response Team * Mireya Corrigan MD - 07/27/2017 6:44 AM UNDERWRITING OPERATIONS MANAGER Formatting of this note may be different from the original. Gynecology/Oncology Post-operative Progress Note ELECTRIC TRAIN DRIVER/ONC Post-operative Day 2 Subjective She reports that her pain is under control today. She denies nausea or vomiting. She has tolerated a regular diet. She denies flatus and is urinating without difficulty. Pt denies fever or chills. Objective Patient Vitals for the past 24 hrs: BP Temp Pulse SpO2 07/27/17 0303 111/50 36.5 C (97.7 F) 51 93 % 07/26/17 2209 114/50 36.6 C (97.9 F) 58 93 % 07/26/17 2019 117/54 36.6 C (97.9 F) 55 94 % 07/26/17 1723 136/54 36.9 C (98.4 F) 55 95 % 07/26/17 1248 106/50 36.3 C (97.4 F) 55 93 % 07/26/17 0856 110/51 - 54 93 % Physical Exam: General: No acute distress. Heart: Regular rate and rhythm. Lungs: Clear to auscultation bilaterally. Abdomen: Soft, appropriately tender to palpation. Non-distended. Positive bowel sounds. Incision: Clean, dry and intact. No erythema or induration. in place. Extremities: No edema BL LE. Lab Review: 24-hour labs: Results for orders placed or performed during the hospital encounter of (from the past 24 hour(s)) MAGNESIUM Collection Time: 07/27/17 4:34 AM Result Value Ref Range Magnesium 2.2 1.6 - 2.6 mg/dL PHOSPHORUS Collection Time: 07/27/17 4:34 AM Result Value Ref Range Phosphorus 2.4 2.0 - 4.0 MG/DL CBC Collection Time: 07/27/17 4:34 AM Result Value Ref Range White Blood Cells 12.1 [...] K/UL MPV 8.7 7 - 11 FL COMPREHENSIVE METABOLIC PANEL Collection Time: 07/27/17 4:34 AM Result Value Ref Range Sodium 140 137 - [...] - 12 eGFR Non >60 >60 mL/min eGFR >60 >60 mL/min Intake/Output Summary (Last 24 hours) at 07/27/17 0644 Last data filed at 07/27/17 0615 Gross per 24 hour Intake 1301 ml Output 850 ml Net 451 ml Access: PUV x 2, pcea, rodriguez acetaminophen 650 mg Oral Q6H* famotidine 20 mg Oral BID ibuprofen 600 mg Oral Q6H ondansetron 4-8 mg Intravenous Q6H* polyethylene glycol 3350 17 g Oral QDAY senna/docusate 1 tablet Oral BID diphenhydrAMINE 25 mg Intravenous Q4H PRN naloxone 0.08 mg Intravenous PRN naloxone 0.08 mg Intravenous PRN oxyCODONE 5-15 mg Oral Q4H PRN prochlorperazine 10 mg Intravenous Q6H PRN Point of Care Testing: (Last 24 hours): Glucose: 89 (07/27/17 0434) Assessment Active Problems: Ovarian mass, right 31 y.o. with Adnexal mass POD # 2 s/p Ex lap, RSO, left cytectomy FS: epitheleal neoplasm, benign Plan CV: -RRR, normotensive, continue to monitor Pulm: -on RA, encourage IS use GI: -On reg diet, bowel regimen, anti-emetics prn-->she had zofran scheduled yesterday, will switch it back to PRN today as her nausea has improved. : - UOP appropriate, Cr stable MS: - encourage ambulation with assistance FEN: - Will d/c IVF monitor and replace lytes prn Heme/Onc: CBC stable Hgb 11.3, WBC 13.0, plts 323 -pathology pending, f/u Pain: -Controlled on MANAGER GENERATION- dilaudid and PCEA ID: - received Ancef prior to procedure Neuro/psych: -NA Endo: -NA Prophylaxis: - lovenox, SCDs, IS, pepcid Access/Drains: -PIV x 2 Discharge planning: -lovenox teaching ordered Disposition:Will remain inpatient for routine post op care. D/c PCEA, possible discharge tomorrow. Does not need Lovenox -Discuss with Dr. Savi Corrigan MD Obstetrics & Gynecology PGY-4 Robotics Systems Engineer Onc Pager [phone] Associated attestation - Spencer Hou MD - 07/27/2017 4:54 PM UNDERWRITING OPERATIONS MANAGER I personally performed the welch portions of the E/M visit, discussed case with the resident and concur with resident documentation of history, physical exam, assessment, and treatment plan, unless otherwise noted. No acute complaints. Pain is controlled. No N/V. Tolerating diet. Voiding. Not passing gas. Afeb. VSS Gen: NAD Abdomen: Soft. Inc C/D/I. POD#2. Doing well. Continue postop care. Spencer Hou MD, FACOG, FACS Gynecologic Oncology Pager: [phone] * Angelina Posada MD - 07/26/2017 1:32 PM UNDERWRITING OPERATIONS MANAGER Formatting of this note may be different from the original. Anesthesiology Acute Pain Service Date of Service: 07/26/2017 Name: Devendra Romero is a 31 y.o. female : 1985 PROCEDURE: Procedure(s) with comments: EXPLORATORY LAPAROTOMY, RIGHT SALPINGO-OOPHORECTOMY, LEFT OVARIAN CYSTECTOMY - CASE LENGTH 4 HOURS, REQUEST 1462 START POD #: 1 ANALGESIA TECHNIQUE Epidural catheter: bupivacaine 0.1% ADJUNCT ANALGESIA MEDICATIONS oxycodone acetaminophen PO ibuprofen TREATMENT PLAN Continue use of epidural for pain management Discontinue dilaudid MANAGER GENERATION, added oral ibuprofen and oxycodone. Anesthesia Pain pager: [phone] No Known Allergies Inpatient Medications Scheduled Meds: acetaminophen (TYLENOL) tablet 650 mg 650 mg Oral Q6H* enoxaparin (LOVENOX) syringe 40 mg 40 mg Subcutaneous QDAY famotidine (PEPCID) tablet 20 mg 20 mg Oral BID ibuprofen (MOTRIN) tablet 600 mg 600 mg Oral Q6H ondansetron (ZOFRAN) injection 4-8 mg 4-8 mg Intravenous Q6H* polyethylene glycol 3350 (MIRALAX) packet 17 g 17 g Oral QDAY senna/docusate (SENOKOT-S) tablet 1 tablet 1 tablet Oral BID Continuous Infusions: bupivacaine MANAGER GENERATION 0.1% in NS 50mL epidural infusion syr (std conc) PRN and Respiratory Meds:diphenhydrAMINE Q4H PRN, naloxone PRN, naloxone PRN, oxyCODONE Q4H PRN, prochlorperazine Q6H PRN Anticoagulants heparin (porcine) 2,000 Units in sodium chloride 0.9% (NS) 40 mL IRR Syr Physician Practice Administrator to OR enoxaparin (LOVENOX) syringe 40 mg QDAY HPI Visual Analog Scale (VAS) (0-10 Scale) At rest: 2 Patient satisfied with pain control: Yes Side Effects: none EXAM Recent Vitals Vital Signs: 24 Hour Range BP: 106/50 (07/26 1248) Temp: 36.3 C (97.4 F) (07/26 1248) Pulse: 55 (07/26 124) Respirations: 16 PER MINUTE (07/26 1248) SpO2: 93 % (07/26 124) O2 Delivery: None (Room Air) (07/26 1248) SpO2 Pulse: 69 (07/25 1400) BP: (106-147)/(42-78) Temp: [36.3 C (97.4 F)-37.2 C (98.9 F)] Pulse: [50-78] Respirations: [14 PER MINUTE-20 PER MINUTE] SpO2: [88 %-98 %] O2 Delivery: None (Room Air) Lab Results Component Value Date PLTCT 323 07/26/2017 WBC 13.0 07/26/2017 HGB 11.3 07/26/2017 HCT 34.2 07/26/2017 CR 0.65 07/26/2017 PTT 28.2 07/19/2017 INR 1.0 07/19/2017 Level of Consciousness: Awake/alert Neurologic Function Sensory block: Yes Motor: No Insertion Site: Site clean and nontender Associated attestation - Negro Galvez MD - 07/26/2017 3:26 PM UNDERWRITING OPERATIONS MANAGER ATTESTATION I personally observed the resident performing the E/M, discussed case with resident, and concur with resident documentation of history, physical assessment and treatment plan unless otherwise noted. * Katherine Barrios RN - 07/26/2017 11:15 AM UNDERWRITING OPERATIONS MANAGER 1055 RN educated pt on the need to ambulate today. RN told pt we can begin by sitting in the chair for lunch and we will walk as far as the pt is able to tolerate. Pt seemed hesitant. Pt told to notify RN when lunch has arrived so we can get her to the chair. Pt verbalized understanding. 1140 RN removed Rodriguez. Will begin voiding trial. 1220 Pt up to chair with assist x2 to eat lunch. Pt epidural turned off. 1350 MANAGER GENERATION discontinued. Epidural restarted at the same settings. 1430 Pt back to bed. RN asked pt if she would like to try to go to the bathroom. Pt refused. Pt refusing to walk at this time. RN will check back soon. 1515 RN enouraged pt to walk. Pt stated "not yet". Pain has increased to a 5. RN will give oxycodone and try again later. 1635 Pt ambulated to the bathroom with assist x2. Pt steady on feet. Pt rated pain 4/10. RN will try again later to walk on unit with pt. 1745 Pt to chair to eat dinner. 1815 Pt walked to bathroom, voided 100ml. * Mireya Corrigan MD - 07/26/2017 8:01 AM UNDERWRITING OPERATIONS MANAGER Formatting of this note may be different from the original. Gynecology/Oncology Post-operative Progress Note ELECTRIC TRAIN DRIVER/ONC Post-operative Day 1 Subjective Patient reports nausea and had one episode of emesis over night. Her nausea improves with Zofran. She has only tolerated sips of water. Pt has a rodriguez in and denies flatus Pain is well controlled on her PCEA and MANAGER GENERATION Pt denies fever or chills. Objective Patient Vitals for the past 24 hrs: BP Temp Pulse SpO2 07/26/17 0336 118/52 36.8 C (98.2 F) 53 98 % 07/26/17 0200 - - - 97 % 07/26/17 0120 - - - 96 % 07/26/17 0117 123/53 36.9 C (98.5 F) 53 (!) 88 % 07/25/17 2259 117/42 36.9 C (98.5 F) 54 95 % 07/25/17 1933 134/58 37.2 C (98.9 F) 56 93 % 07/25/17 1748 - - 60 95 % 07/25/17 1551 122/68 36.7 C (98 F) 53 93 % 07/25/17 1400 147/78 - - 93 % 07/25/17 1345 136/76 - 78 93 % 07/25/17 1340 - 36.4 C (97.5 F) 50 94 % 07/25/17 1330 138/78 - 55 93 % 07/25/17 1325 139/75 - 57 94 % 07/25/17 1320 136/75 - 52 93 % 07/25/17 1315 138/72 - 54 92 % 07/25/17 1310 134/74 - 55 92 % 07/25/17 1300 161/78 - 57 95 % 07/25/17 1257 - - 62 92 % 07/25/17 1245 147/78 - 52 94 % 07/25/17 1230 143/87 - 55 94 % 07/25/17 1215 157/79 - 52 95 % 07/25/17 1205 148/75 - 63 96 % 07/25/17 1200 143/76 - 49 96 % 07/25/17 1155 148/77 - 53 95 % 07/25/17 1150 137/82 - 56 93 % 07/25/17 1145 141/66 - 58 92 % 07/25/17 1140 148/78 - 63 98 % 07/25/17 1135 155/80 - 58 97 % 07/25/17 1130 166/90 - 60 97 % 07/25/17 1115 140/56 - 60 99 % 07/25/17 1100 157/87 - 55 99 % 07/25/17 1046 - 36.7 C (98.1 F) - - Physical Exam: General: No acute distress. Heart: Regular rate and rhythm. Lungs: Clear to auscultation bilaterally. Abdomen: Soft, appropriately tender to palpation. Non-distended. Positive bowel sounds. Incision: Clean, dry and intact. No erythema or induration. in place. Extremities: No edema BL LE. Lab Review: 24-hour labs: Results for orders placed or performed during the hospital encounter of (from the past 24 hour(s)) MAGNESIUM Collection Time: 07/26/17 5:00 AM Result Value Ref Range Magnesium 2.4 1.6 - 2.6 mg/dL PHOSPHORUS Collection Time: 07/26/17 5:00 AM Result Value Ref Range Phosphorus 2.9 2.0 - 4.0 MG/DL CBC Collection Time: 07/26/17 5:00 AM Result Value Ref Range White Blood Cells 13.0 (H) 4.5 - 11.0 K/UL RBC 3.90 (L) 4.0 - 5.0 M/UL Hemoglobin 11.3 (L) 12.0 - 15.0 GM/DL Hematocrit 34.2 (L) 36 - 45 % MCV 87.8 80 - 100 FL MCH 29.1 26 - 34 PG MCHC 33.1 32.0 - 36.0 G/DL RDW 13.1 11 - 15 % Platelet Count 323 150 - 400 K/UL MPV 8.7 7 - 11 FL COMPREHENSIVE METABOLIC PANEL Collection Time: 07/26/17 5:00 AM Result Value Ref Range Sodium 136 (L) 137 - 147 MMOL/L Potassium 4.0 3.5 - 5.1 MMOL/L Chloride 107 98 - 110 MMOL/L Glucose 103 (H) 70 - 100 MG/DL Blood Urea Nitrogen 13 7 - 25 MG/DL Creatinine 0.65 0.4 - 1.00 MG/DL Calcium 8.6 8.5 - 10.6 MG/DL Total Protein 5.9 (L) 6.0 - 8.0 G/DL Total Bilirubin 0.5 0.3 - 1.2 MG/DL Albumin 3.2 (L) 3.5 - 5.0 G/DL Alk Phosphatase 59 25 - 110 U/L AST (SGOT) 12 7 - 40 U/L CO2 23 21 - 30 MMOL/L ALT (SGPT) 10 7 - 56 U/L Anion Gap 6 3 - 12 eGFR Non >60 >60 mL/min eGFR >60 >60 mL/min Intake/Output Summary (Last 24 hours) at 07/26/17 0801 Last data filed at 07/26/17 0611 Gross per 24 hour Intake 5206.66 ml Output 1935 ml Net 3271.66 ml Access: PUV x 2, pcea, rodriguez acetaminophen 650 mg Oral Q6H* enoxaparin 40 mg Subcutaneous QDAY famotidine 20 mg Oral BID polyethylene glycol 3350 17 g Oral QDAY senna/docusate 1 tablet Oral BID diphenhydrAMINE 25 mg Intravenous Q4H PRN naloxone 0.08 mg Intravenous PRN naloxone 0.08 mg Intravenous PRN ondansetron 4 mg Intravenous Q6H PRN prochlorperazine 10 mg Intravenous Q6H PRN Point of Care Testing: (Last 24 hours): Glucose: (!) 103 (07/26/17 0500) Assessment Active Problems: Ovarian mass, right 31 y.o. with Adnexal mass POD # 1 s/p Ex lap, RSO, left cytectomy FS: epitheleal neoplasm, benign Plan CV: -RRR, normotensive, continue to monitor Pulm: -1L NC, encourage IS use GI: -On reg diet, bowel regimen, anti-emetics prn--> she has been taking Zofran over night with some nausea, compazine added this AM. Will schedule Zofran this morning : - rodriguez in place, will d/c when ambulatory, UOP appropriate, Cr stable MS: - encourage ambulation with assistance FEN: - NS @ 100 cc/hr, monitor and replace lytes prn Heme/Onc: CBC stable Hgb 11.3, WBC 13.0, plts 323 -pathology pending, f/u Pain: -Controlled on MANAGER GENERATION- dilaudid and PCEA ID: - received Ancef prior to procedure Neuro/psych: -NA Endo: -NA Prophylaxis: - lovenox, SCDs, IS, pepcid Access/Drains: -PIV x 2 Discharge planning: -lovenox teaching ordered Disposition:Will remain inpatient for routine post op care. PCEA to remain in today -Discuss with Dr. Savi Corrigan MD Obstetrics & Gynecology PGY-4 Robotics Systems Engineer Onc Pager [phone] Associated attestation - Spencer Hou MD - 07/26/2017 9:41 PM UNDERWRITING OPERATIONS MANAGER I personally performed the welch portions of the E/M visit, discussed case with the resident and concur with resident documentation of history, physical exam, assessment, and treatment plan, unless otherwise noted. Had episode of dizziness and vomiting last night. Nausea, no vomiting. Tolerating clears. Afeb. VSS Gen: NAD Abdomen: Soft. Dressing stained but dry. Appropriately tender. POD#1. Routine postop care. Spencer Hou MD, FACOG, FACS Gynecologic Oncology Pager: [phone] * Malik Edwards RN - 07/25/2017 8:32 PM UNDERWRITING OPERATIONS MANAGER Patient had an episode on nausea and vomiting. See flow chart for output. Zofran administered per orders. Patient up to the chair with 2 person assist, tolerated well. Complained of mild dizziness which subsided. Denies pain, encouraged to use MANAGER GENERATION & PCEA for pain control. Will continue to assess and monitor. * Mabel Bush, RT - 07/25/2017 6:41 PM UNDERWRITING OPERATIONS MANAGER Formatting of this note may be different from the original. RESPIRATORY THERAPY ADULT PROTOCOL EVALUATION RESPIRATORY PROTOCOL PLAN Medications Note: If indicated by protocol, medication orders will be placed by therapist. Procedures PEP Therapy: Place a nursing order for "IS Q1h While Awake" for any of Lung Expansion indicators Oxygen/Humidity: O2 to keep SpO2 > 92% Monitoring: Pulse oximetry BID & PRN PATIENT EVALUATION RESULTS Chart Review * Pulmonary Hx: Smoker in home OR smoking cessation > 8 weeks (passive smoke exposure, no home meds, no pulm dx) * Surgical Hx: Thoracic or abdominal surgery/injury (LE) (s/p cystectomy 07/25) * Chest X-Ray: Clear OR not available (n/a) * PFT/Oxygenation: FEV1, PEFR < 70% OR Pa02 < 70 RA OR Sp02 <92% RA OR Fi02 > 0.21 to keep Sp02 > 92% OR < 24 hours post-op (02 & oxim) OR chronic C02 retention (C02) (<24 hours s/p, 95% on RA) Patient Assessment * Respiratory Pattern: Regular pattern and rate OR good chest excursion with deep breathing * Breath Sounds: Clear apically, but diminished in bases (LE) OR CHF related crackles (02) (oximetry) * Cough / Sputum: Good effective cough OR occasional or minimal sputum OR thin sputum * Mental Status: Alert, oriented, cooperative * Activity Level: Ambulatory with assistance Priority Index Total Points: 9 Points * Priority Index: 1 PRIORITY INDEX GUIDELINES* Priority Points 1 0-9 points 2 9-18 points 3 > 18 points + Pulm Dx or Home Rx *Higher points indicate higher acuity. Therapist: Mabel Bush, RT Date: 07/25/2017 [place] AC=Airway clearance AM=Aerosolized medication BA=[place] aerosol DB&C=Deep breathe & cough FEV1=Forced expiratory volume in first second) IC=Inspiratory capacity LE=Lung expansion MDI=Metered dose inhaler Neb=Nebulizer O2=Oxygen Oxim=Oximetry PEFR=Peak expiratory flow rate COPPER PLATER=Rapid Response Team * Katherine Barrios RN - 07/25/2017 3:12 PM UNDERWRITING OPERATIONS MANAGER Patient arrived on unit via cart accompanied by transport. Patient transferred to the bed with assistance. Orders released, reviewed, and implemented as appropriate. Oriented to surroundings, call light within reach. Plan of care reviewed. Will continue to monitor and assess. * Alix Humphries PA-C - 07/25/2017 2:27 PM UNDERWRITING OPERATIONS MANAGER Formatting of this note may be different from the original. Post Op Update Note: Patient is still quite groggy from anesthesia. She reports pain is controlled on the superior portion of her abdomen but is a 7/10 on the inferior aspect. Anesthesia team added dilaudid MANAGER GENERATION for this. Has not yet ambulated. BP 147/78 | Pulse 78 | Temp 36.4 C (97.5 F) | Ht 167.6 cm (66") | Wt (!) 137 kg (302 lb 0.5 oz) | LMP 07/06/2017 (Exact Date) | SpO2 93% | BMI 48.75 kg/ m2 Gen: NAD CV: RRR Chest: CTAB Abd: Soft, obese abdomen. Incision covered with telfa and tegaderm. No erythema or induration. Drains: Rodriguez draining clear, yellow urine. CBC w/Diff Lab Results Component Value Date/Time WBC 8.8 07/19/2017 11:20 AM RBC 4.37 07/19/2017 11:20 AM HGB 12.8 07/19/2017 11:20 AM HCT 38.3 07/19/2017 11:20 AM MCV 87.8 07/19/2017 11:20 AM MCH 29.3 07/19/2017 11:20 AM MCHC 33.3 07/19/2017 11:20 AM RDW 13.1 07/19/2017 11:20 AM PLTCT 307 07/19/2017 11:20 AM MPV 8.6 07/19/2017 11:20 AM Lab Results Component Value Date/Time NEUT 46 07/19/2017 11:20 AM ANC 4.00 07/19/2017 11:20 AM LYMA 35 07/19/2017 11:20 AM ALC 3.00 07/19/2017 11:20 AM JERSON 6 07/19/2017 11:20 AM AMC 0.60 07/19/2017 11:20 AM EOSA 12 (H) 07/19/2017 11:20 AM AEC 1.00 (H) 07/19/2017 11:20 AM BASA 1 07/19/2017 11:20 AM ABC 0.10 07/19/2017 11:20 AM Basic Metabolic Profile Lab Results Component Value Date/Time NA 136 (L) 07/19/2017 11:20 AM K 4.0 07/19/2017 11:20 AM CA 9.3 07/19/2017 11:20 AM CL 106 07/19/2017 11:20 AM CO2 26 07/19/2017 11:20 AM GAP 4 07/19/2017 11:20 AM Lab Results Component Value Date/Time BUN 13 07/19/2017 11:20 AM CR 0.63 07/19/2017 11:20 AM GLU 94 07/19/2017 11:20 AM Continue routine post-op care. Encourage IS use. Encourage early ambulation. Will follow-up pain. Alix Humphries PA-C Gynecologic Oncology Pager [phone] * Gail Barnhart RN - 07/25/2017 11:49 AM UNDERWRITING OPERATIONS MANAGER After bolus given in epidural by Dr. Lane patient stated that her pain did not decrease.Ice test also performed by Dr. Lane, Patient not having good coverage from epidural. Dr. Lane ordered to stop epidural infusion at this time and start Dilaudid MANAGER GENERATION. Will re-evaluate replacing epidural after patients pain is controlled. in this encounter H&P Notes * Mireya Corrigan MD - 07/25/2017 6:53 AM UNDERWRITING OPERATIONS MANAGER Formatting of this note may be different from the original. History and Physical Update Note Name: Devendra Romero Allergies: Review of patient's allergies indicates no known allergies. Primary Care Physician: Carlie Sorto Verified Lab/Radiology/Other Diagnostic Tests: 24-hour labs: Results for orders placed or performed during the hospital encounter of (from the past 24 hour(s)) TEST-URINE Collection Time: 07/25/17 6:20 AM Result Value Ref Range Urine-HCG NEG Specific [place] 1.026 Last Dose Beta Blockers/Anticoagulants: N/A Point of Care Testing: (Last 24 hours): I have examined the patient, and there are no significant changes in their condition, from the previous H&P performed on 07/19/17. Mireya Corrigan MD Pager [phone] Associated attestation - Cong Elizabeth MD - 07/25/2017 6:58 AM UNDERWRITING OPERATIONS MANAGER I performed a history and physical examination of the patient and discussed her management with the resident. I reviewed the resident's note and agree with the documented findings and plan of care. Cong Elizabeth MD Gynecologic Oncology in this encounter Miscellaneous Notes * Care Plan - Lyndsey Barriga - 07/28/2017 12:39 PM UNDERWRITING OPERATIONS MANAGER Problem: Pain Goal: Management of pain Outcome: Goal Achieved Date Met: 07/28/17 Pain managed this hospital stay. Problem: Discharge Planning Goal: Participation in plan of care Outcome: Goal Achieved Date Met: 07/28/17 Pt participation in care plan achieved this hospital stay. Goal: Knowledge regarding plan of care Outcome: Goal Achieved Date Met: 07/28/17 Pt states understanding regarding care plan this hospital stay. Goal: Prepared for discharge Outcome: Goal Achieved Date Met: 07/28/17 Pt prepared for discharge this hospital stay. Problem: Infection, Risk of, Surgical Site Infection Goal: Absence of surgical site infection Outcome: Goal Achieved Date Met: 07/28/17 Pt absent of infection this hospital stay. * Med Student Progress Note - Julia Magallanesbeth, - 07/28/2017 6:18 AM UNDERWRITING OPERATIONS MANAGER Formatting of this note may be different from the original. Gynecology/Oncology Post-operative Progress Note ELECTRIC TRAIN DRIVER/ONC Post-operative Day 3 Subjective: Patient is doing well this morning. States her pain is improved and well controlled. Still reports soreness in RLQ. Ambulated around the floor yesterday. No SOB, chest pain, chills or fever. Denies nausea or vomiting. Voiding well. Denies bowel movement despite bowel regimen, but does endorse a significant amount of flatus. Tolerating PO fine. Objective: Patient Vitals for the past 24 hrs: BP Temp Pulse SpO2 07/28/17 0529 133/82 36.8 C (98.2 F) 64 98 % 07/27/17 2303 156/75 36.7 C (98 F) 72 98 % 07/27/17 2020 153/76 36.9 C (98.4 F) 62 97 % 07/27/17 1509 135/55 36.8 C (98.2 F) 68 96 % 07/27/17 1200 112/79 36.6 C (97.8 F) 58 96 % 07/27/17 0733 130/60 36.5 C (97.7 F) 50 94 % Physical Exam: General: No acute distress. Heart: Regular rate and rhythm. Lungs: Clear to auscultation bilaterally. Abdomen: Soft, appropriately tender to palpation. Non-distended. Positive bowel sounds. Incision: Clean, dry and intact. No erythema or induration. Extremities: No edema BL LE. Lab Review: 24-hour labs: No results found for this visit on 07/25/17 (from the past 24 hour(s)). Intake/Output Summary (Last 24 hours) at 07/28/17 0618 Last data filed at 07/28/17 0529 Gross per 24 hour Intake 630 ml Output 1500 ml Net -870 ml INS: PO: 630 mL OUTS: UOP: 1500 mL Assessment: 31 y.o. with R adnexal mass POD # 3 s/p Ex lap, RSO, left cystectomy FS: epithelial neoplasm, benign Plan: CV: -RRR, normotensive, continue to monitor Pulm: -CTAB, encourage IS use GI: -Regular diet, bowel regimen, anti-emetics prn -N/V resolved with zofran --> PRN today -Continue miralax : -UOP appropriate, Cr stable MS: -encourage ambulation with assistance FEN: -d/c IVF Heme/Onc: -CBC stable Hgb 11.3 --> 10.6, WBC 12.1, plts 290 -pathology pending, f/u Pain: -Well controlled ID: -received ancef prior to procedure Endo: -N/A Prophylaxis: -lovenox, SCDs, IS, pepcid Disposition: Remain inpatient at this time. -Discussed with Dr. Savi Magallanes, MS3 * Care Plan - Lyly Thorpe RN - 07/28/2017 12:19 AM UNDERWRITING OPERATIONS MANAGER Problem: Falls, High Risk of Goal: Absence of falls-Adult Patient Outcome: Goal Achieved Date Met: 07/28/17 Pt is ambulating with steady gait. This RN educated Pt about being UAL. Pt stated understanding. Will continue to monitor. * Care Plan - Lyndsey Barriga - 07/27/2017 12:47 PM UNDERWRITING OPERATIONS MANAGER Problem: Pain Goal: Management of pain Outcome: Goal Ongoing Goal ongoing as care plan evolves and pt assessed for pain. Problem: Falls, High Risk of Goal: Absence of falls-Adult Patient Outcome: Goal Ongoing Goal ongoing as high fall risk precautions are initiated and maintained this hospital stay. Problem: Discharge Planning Goal: Participation in plan of care Outcome: Goal Ongoing Pt updated with changes regarding care plan and educated. Goal: Knowledge regarding plan of care Outcome: Goal Ongoing Pt updated with changes regarding care plan and states understanding regarding current care plan. Goal: Prepared for discharge Outcome: Goal Ongoing Pt working toward maximum function. * Operative Report (DICTATED ONLY) - Cong Elizabeth MD - 07/27/2017 9:19 AM UNDERWRITING OPERATIONS MANAGER [facility] [address] [place] [address]. [place], [place] [address] PATIENT NAME: DEVENDRA ROMERO MR#/PT#: [id number] Page 1 OPERATIVE REPORT DATE OF OPERATION: 07/25/2017 SURGEON: Cong Elizabeth MD See other dictation. Duplicate in error. MEV / MEDQ /[id number] cc: - Cong Elizabeth MD * Med Student Progress Note - Elpidio Veronica, - 07/27/2017 6:18 AM UNDERWRITING OPERATIONS MANAGER Formatting of this note may be different from the original. Gynecology/Oncology Post-operative Progress Note ELECTRIC TRAIN DRIVER/ONC Post-operative Day 2 Subjective: Patient is awake in bed this morning. Reports an increase in pain after ambulating, 5-6/10. Endorses soreness throughout her abdomen, RLQ. Patient slept well overnight with no acute events. Denies nausea/vomiting since yesterday morning. Zofran is helping. She has been able to tolerate PO feeds. Rodriguez removed 1140 AM yesterday. Able to void on own. Denies burning, incontinence, pain with voiding. Has not had a bowel movement, denies flatus. Denies fevers or chills, SOB, chest pain. Objective: Patient Vitals for the past 24 hrs: BP Temp Pulse SpO2 07/27/17 0303 111/50 36.5 C (97.7 F) 51 93 % 07/26/17 2209 114/50 36.6 C (97.9 F) 58 93 % 07/26/17 2019 117/54 36.6 C (97.9 F) 55 94 % 07/26/17 1723 136/54 36.9 C (98.4 F) 55 95 % 07/26/17 1248 106/50 36.3 C (97.4 F) 55 93 % 07/26/17 0856 110/51 - 54 93 % Physical Exam: General: No acute distress. Heart: Regular rate and rhythm. Lungs: Clear to auscultation bilaterally. Abdomen: Soft, appropriately tender to palpation. Non-distended. Positive bowel sounds. Incision: Clean, dry and intact. No erythema or induration. Moderate bruising adjacent to incision bilaterally. Extremities: No edema BL LE. Lab Review: 24-hour labs: Results for orders placed or performed during the hospital encounter of (from the past 24 hour(s)) MAGNESIUM Collection Time: 07/27/17 4:34 AM Result Value Ref Range Magnesium 2.2 1.6 - 2.6 mg/dL PHOSPHORUS Collection Time: 07/27/17 4:34 AM Result Value Ref Range Phosphorus 2.4 2.0 - 4.0 MG/DL CBC Collection Time: 07/27/17 4:34 AM Result Value Ref Range White Blood Cells 12.1 [...] K/UL MPV 8.7 7 - 11 FL COMPREHENSIVE METABOLIC PANEL Collection Time: 07/27/17 4:34 AM Result Value Ref Range Sodium 140 137 - [...] - 12 eGFR Non >60 >60 mL/min eGFR >60 >60 mL/min Intake/Output Summary (Last 24 hours) at 07/27/17617 Last data filed at 07/27/17 0615 Gross per 24 hour Intake 1301 ml Output 850 ml Net 451 ml INS: PO: 1001 mL IVF: 300 mL of NS at 100 mL/hr OUTS: UOP: 850 mL Emesis: 0 mL EBL: 0 mL Assessment: 31 y.o. with R adnexal mass POD # 2 s/p Ex lap, RSO, left cystectomy FS: epithelial neoplasm, benign Plan: CV: -RRR, normotensive, continue to monitor Pulm: -CTAB, encourage IS use GI: -Regular diet, bowel regimen, anti-emetics prn -N/V resolved with zofran -Continue miralax : -Rodriguez removed, UOP appropriate, Cr stable MS: -encourage ambulation with assistance FEN: -NS @ 100 cc/hr, monitor and replace lytes prn Heme/Onc: -CBC stable Hgb 11.3 --> 10.6, WBC 12.1, plts 290 -pathology pending, f/u Pain: -Controlled on MANAGER GENERATION-dilaudid and PCEA ID: -received ancef prior to procedure Neuro/psych: -Reports good mood Endo: -N/A Prophylaxis: -lovenox, SCDs, IS, pepcid Disposition: Remain inpatient at this time. -Discussed with Dr. Savi Magallanes, MS3 * Case Mgmt DC Plan - Randi Ambriz - 07/27/2017 5:09 AM UNDERWRITING OPERATIONS MANAGER Formatting of this note may be different from the original. Case Management Admission Assessment NAME:Devendra Romero :[birth year] AGE: 31 y.o. ADMISSION DATE: 07/25/2017 DAYS ADMITTED: LOS: 3 days Todays Date: 07/28/2017 Source of Information: Patient, Spouse Plan Plan: CM Assessment, Discharge Planning for Home Anticipated Discharge home with family support when medically stable. SW will continue to follow for a med voucher and [place] paperwork. Pt with a h/o of a pelvic mass was admitted for surgical procedures. Pt is s/p ex-lap, right salpingo-oophorectomy, and cystectomy. Pt reports she has ambulated around the room. SW met with pt, her , and 9 yo son at bedside for assessment and d/c planning. Pt was independent with her care needs prior to admission. Pt is uninsured and will not qualify for a KAYLAN screening. She would appreciate med voucher assistance, if needed, at discharge. Pt understands the limits of a med voucher. Pt will return to [facility] for primary care. Emergency Contact Extended Emergency Contact Information Primary Emergency Contact: Ari Romero [address]: [address] [place] [id number] [facility] Relation: Spouse Secondary Emergency Contact: Chepe Dawson [facility] Relation: Father Mother: Evelyn Traylor [facility] DPOA None Transportation Does the patient need discharge transport arranged?: No (Pt's will provide transportation home.) Does the patient use Medicaid Transportation?: No Expected Discharge Expected Discharge Date: 07/29/17 Living Situation Prior to Admission ? Living Arrangements Type of Residence: Home, independent Living Arrangements: Spouse/significant other, Children (Pt lives with her and 3 children, ages 5, 8, and 8 yo.) How many levels in the residence?: 1 (Pt's home is one level with 5 JUAN.) Can patient live on one level if needed?: N/A Support Systems: Spouse/Partner, Other family, Jew/Mosque affiliated (Pt' s does not work outside of the home. He will help with care of the children. Pt's father lives next door to pt. He is watching the children while pt is hospitalized. Pt's mom will help pt every weekend until pt is fully healed. )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 enoxaparin is an anticoagulant and may need to be held for 12hr prior to surgery or invasive procedures. NOTE: This is a HIGH ALERT Medication. Given 07/28/2017 40 mg Abdominal 11:42 UNDERWRITING OPERATIONS MANAGER Tissue famotidine (PEPCID) tablet 20 mg Given 07/27/2017 20 mg 20 mg, Oral, TWICE DAILY, First dose on 09:21 UNDERWRITING OPERATIONS MANAGER 07/25/17 at 2100, Until Discontinued Given 07/27/2017 20 mg 20:12 UNDERWRITING OPERATIONS MANAGER Given 07/28/2017 20 mg 08:08 UNDERWRITING OPERATIONS MANAGER fentaNYL citrate PF (SUBLIMAZE) Given 07/25/2017 50 mcg injection 50 mcg 10:59 UNDERWRITING OPERATIONS MANAGER 50 mcg, Intravenous, EVERY 5 MIN PRN, Starting Tue07/25/17 at 0945, Until Tue07/25/17 at 1511, Pain Injectable, For Pain Score 4-6, Maximum total dose 200 mcg Hold if RR < 10 Given 07/25/2017 50 mcg 11:16 UNDERWRITING OPERATIONS MANAGER Given 07/25/2017 50 mcg 11:37 UNDERWRITING OPERATIONS MANAGER heparin (porcine) PF syringe 5,000 Units Given 07/25/2017 5,000 Units Abdomen:RLQ 5,000 Units, Subcutaneous, ONCE, 1 dose, 07:20 UNDERWRITING OPERATIONS MANAGER 07/25/17 at 0700, NOTE: This is a HIGH ALERT Medication. HYDROmorphone (DILAUDID) MANAGER GENERATION 11 mg/NS Dose/Rate 07/25/2017 55mL infusion syr (std conc)(premade) Verify 19:40 UNDERWRITING OPERATIONS MANAGER Intravenous, MANAGER GENERATION, Starting Tue07/25/17 at 1245, Until Tue07/26/17 at 1331, MANAGER GENERATION Additional Bolus (Pain >5): 0.5 mg, Re-assess in 15 minutes, may repeat bolus ONE time if pain not adequately controlled (MAXIMUM of 2 bolus doses only). Check pump to ensure proper function and appropriate patient utilization. If pain is still not adequately controlled, contact physician. Stop MANAGER GENERATION if patient difficult to arouse, or systolic BP drops more than 20 mmHg from baseline. HYDROmorphone MANAGER GENERATION Conc=0.2 mg/mL Administer only with MANAGER GENERATION Pump -- Only Patient may push MANAGER GENERATION button. NOTE: This is a HIGH ALERT Medication. MEDICATION DOUBLE CHECK Policy applies. Dose/Rate Verify 07/26/2017 07:37 UNDERWRITING OPERATIONS MANAGER Given - New Bag 07/26/2017 09:50 UNDERWRITING OPERATIONS MANAGER ibuprofen (MOTRIN) tablet 600 mg Given 07/28/2017 600 mg 600 mg, Oral, EVERY 6 HOURS, First dose 00:30 UNDERWRITING OPERATIONS MANAGER on Tue07/26/17 at 1300, Until Discontinued, TOTAL IBUPROFEN DOSE NOT TO EXCEED 3.2GM PER DAY Given 07/28/2017 600 mg 05:27 UNDERWRITING OPERATIONS MANAGER Given 07/28/2017 600 mg 14:50 UNDERWRITING OPERATIONS MANAGER ketorolac (TORADOL) injection 15 mg Given 07/25/2017 15 mg 15 mg, Intravenous, EVERY 6 HOURS, 4 20:02 UNDERWRITING OPERATIONS MANAGER doses, First dose on Tue07/25/17 at 1200, Last dose on Tue07/26/17 at 0600, Hold if urine output is <30 mL/hr or 120 mL over 4 hours. Please note: this medication will be automatically discontinued 5 days after ordered per hospital policy. Please obtain a new order if the medication needs to be continued. Given 07/25/2017 15 mg 23:33 UNDERWRITING OPERATIONS MANAGER Given 07/26/2017 15 mg 05:28 UNDERWRITING OPERATIONS MANAGER lactated ringers infusion Given - New 07/25/2017 1,000 mL 20 mL/hr 1,000 mL, 1,000 mL, Intravenous, at 20 Bag 06:59 UNDERWRITING OPERATIONS MANAGER mL/hr, CONTINUOUS, Starting Tue07/25/17 at 0545, Until Tue07/26/17 at 1253, Pre-Op Given - New Bag 07/25/2017 10:34 UNDERWRITING OPERATIONS MANAGER ondansetron (ZOFRAN) injection 4 mg Given 07/25/2017 4 mg 4 mg, Intravenous, EVERY 6 HOURS PRN, 20:00 UNDERWRITING OPERATIONS MANAGER Starting Tue07/25/17 at 1513, Until Tue07/26/17 at 0818, Nausea/Vomiting Injectable Given 07/26/2017 4 mg 01:25 UNDERWRITING OPERATIONS MANAGER ondansetron (ZOFRAN) injection 4-8 mg Given 07/26/2017 4 mg 4-8 mg, Intravenous, EVERY 6 HOURS, 15:08 UNDERWRITING OPERATIONS MANAGER First dose on Tue07/26/17 at 0830, Until Discontinued Given 07/26/2017 4 mg 20:05 UNDERWRITING OPERATIONS MANAGER Given 07/27/2017 4 mg 02:00 UNDERWRITING OPERATIONS MANAGER oxyCODONE (ROXICODONE, OXY-IR) tablet Given 07/25/2017 5 mg 5-10 mg 12:36 UNDERWRITING OPERATIONS MANAGER 5-10 mg, Oral, ONCE PRN, 1 dose, Starting Tue07/25/17 at 0945, Until Tue07/25/17 at 2359, For VAS score < 4, PACU (only) oxyCODONE (ROXICODONE, OXY-IR) tablet Given 07/28/2017 10 mg 5-15 mg 05:27 UNDERWRITING OPERATIONS MANAGER 5-15 mg, Oral, EVERY 4 HOURS PRN, Starting Tue07/26/17 at 1156, Until Melissa 07/28/17 at 1657, Pain PO Given 07/28/2017 10 mg 11:42 UNDERWRITING OPERATIONS MANAGER Given 07/28/2017 5 mg 14:50 UNDERWRITING OPERATIONS MANAGER polyethylene glycol 3350 (MIRALAX) Given 07/26/2017 17 g packet 17 g 09:09 UNDERWRITING OPERATIONS MANAGER 17 g, Oral, DAILY, First dose on Tue07/25/17 at 1700, Until Discontinued, 8.5 GRAMS=0.5 PACKET 17 GRAMS=1 PACKET 34 GRAMS=2 PACKETS Given 07/27/2017 17 g 09:21 UNDERWRITING OPERATIONS MANAGER Given 07/28/2017 17 g 08:08 UNDERWRITING OPERATIONS MANAGER prochlorperazine (COMPAZINE) injection Given 07/26/2017 10 mg 10 mg 07:03 UNDERWRITING OPERATIONS MANAGER 10 mg, Intravenous, EVERY 6 HOURS PRN, Starting Tue07/26/17 at 0642, Until Melissa 07/28/17 at 1657, Nausea/Vomiting Injectable, PROTECT FROM LIGHT -- May be given undiluted, or each 5mg may be diluted with 9 mL of NS to facilitate titration. Given 07/26/2017 10 mg 17:41 UNDERWRITING OPERATIONS MANAGER senna/docusate (SENOKOT-S) tablet 1 Given 07/27/2017 1 tablet tablet 09:21 UNDERWRITING OPERATIONS MANAGER 1 tablet, Oral, TWICE DAILY, First dose on Tue07/25/17 at 2100, Until Discontinued, Hold for loose stools Given 07/27/2017 1 tablet 20:12 UNDERWRITING OPERATIONS MANAGER Given 07/28/2017 1 tablet 08:08 UNDERWRITING OPERATIONS MANAGER sodium chloride 0.9 % infusion Given - New 07/25/2017 100 mL/hr 1,000 mL, Intravenous, at 100 mL/hr, Bag 13:43 UNDERWRITING OPERATIONS MANAGER CONTINUOUS, Starting Tue07/25/17 at 1115, Until Tue07/26/17 at 1254, Lock IV and DC IV fluid when patient tolerating >=600 mL PO or by 8 AM on POD #1 Given - New Bag 07/25/2017 100 mL/hr 23:33 UNDERWRITING OPERATIONS MANAGER Given - New Bag 07/26/2017 100 mL/hr 09:50 UNDERWRITING OPERATIONS MANAGER in this encounter
--- OUTSIDE RECORDS SUMMARY | 2017-08-06 11:44 | XMS REPORT | Encounter Summary ---
Author Author [facility] Organization [facility] Address Unknown Phone Unavailable Care Team Providers Care Motor Analyst Name Role Phone PCP Unavailable Reason for Visit * Auth/Cert Status Reason Specialty Diagnoses / Referred By Referred To Procedures Contact Contact Diagnoses Pelvic mass in female U NKNOWN Ovarian mass, right P rocedures OH BSO W/OMENTECTOMY BRIAN DEBULKING W/LMPHADECTOMY DEBULKING TUMOR OVARY,TOTAL ABDOMINAL HYSTERECTOMY, BILATERAL SALPINGOOOPHOREC JESU, OMENTECTOMY, PELVIC AND PARA-AORTIC LYMPH NODE DISSECTION, DIAPHRAGM STRIPPING, POSSIBLE BOWEL RESECTION Encounter Details Date Type Department Care Team Description 07/25/2017 Surgery Main Operating Room Cong Elizabeth MD EXPLORATORY LAPAROTOMY, [address] [place] [address] [place] [address] SALPINGO-OOPHORECTOMY, LEFT OVARIAN CYSTECTOMY Social History Tobacco Use Types Packs/Day Years Used Date Passive Smoke Exposure - Never Smoker Smokeless Tobacco: Never Used Alcohol Use Drinks/Week oz/Week Comments No Sex Assigned at Date Recorded Not on file as of this encounter Last Filed Vital Signs Vital Sign Reading Time Taken Blood Pressure 126/58 07/28/2017 12:10 PM VIDEO GAMES STORYWRITER Pulse 79 07/28/2017 11:50 AM VIDEO GAMES STORYWRITER Temperature 36.7 C (98 F) 07/28/2017 11:50 AM VIDEO GAMES STORYWRITER Respiratory Rate - - Oxygen Saturation 97% 07/28/2017 11:50 AM VIDEO GAMES STORYWRITER Inhaled Oxygen - - Concentration Weight 137 kg (302 lb 0.5 oz) 07/25/2017 6:46 AM VIDEO GAMES STORYWRITER Height 167.6 cm (5' 6") 07/25/2017 6:46 AM VIDEO GAMES STORYWRITER Body Mass Index 48.75 07/25/2017 6:46 AM VIDEO GAMES STORYWRITER in this encounter Functional Status Functional Status Response Date of Assessment Does the patient have a hearing impairment: No 07/25/2017 as of this encounter Discharge Summaries * Alix Humphries PA-C - 07/28/2017 2:57 PM VIDEO GAMES STORYWRITER Formatting of this note may be different [...] overnight. Having persistent pain - anesthesia added UNION LABORER. POD #2: Pain controlled. No nausea/vomiting. Tolerating [...] HOURS (8:00 AM - 4:30 PM): Call [phone] and asked to be transferred to your discharge attending physician. - AFTER BUSINESS HOURS (4:30 PM - 8:00 AM, on weekends, or holidays): Call [phone] and ask the shovel log loader operator to page the on-call doctor for the discharge attending physician. Discharging attending physician: SPENCER HOU [[id number]] Regular Diet You have no dietary restriction. [...] return call within 30-60 minutes, please call [phone] and have the Gynecology Oncology resident paged. If you have an emergency during the evening, night or weekend, please call the page shovel log loader operator at [phone] and ask to have the gynecologic oncology [...] time, please call your office nurse at: [phone] If your pathology report was not back [...] Scheduled appointments: Aug 08, 2017 3:00 PM VIDEO GAMES STORYWRITER (Arrive by 2:45 PM) Mid-Level Visit with Inna Lemon APRN [facility] ([facility] Exam) [address] [facility] [address] Aug 23, 2017 11:15 AM VIDEO GAMES STORYWRITER (Arrive by 11:00 AM) Post-Op with Cong Elizabeth MD [facility] ([facility] Exam) [address] [facility] [address] Pending items needing follow up: Post-op check. [...] * Lyndsey Barriga - 07/28/2017 2:57 PM VIDEO GAMES STORYWRITER Devendra Romero discharged on 07/28/2017. . Discharge [...] Radha Renae RN - 07/28/2017 12:38 PM VIDEO GAMES STORYWRITER I have reviewed the notes, assessments, and/or procedures performed by Lyndsey Barriga RN and concur with her/his documentation unless otherwise noted. * Mireya Corrigan MD - 07/28/2017 6:23 AM VIDEO GAMES STORYWRITER Formatting of this note may be different from the original. Gynecology/Oncology Post-operative Progress Note KNIFE OPERATOR/ONC Post-operative Day 3 Subjective Her pain is [...] Savi Corrigan MD Obstetrics & Gynecology PGY-4 [facility] Out Onc Pager [phone] Associated attestation - Spencer Hou MD - 07/28/2017 6:30 PM VIDEO GAMES STORYWRITER I personally performed the welch portions of the E/M visit, discussed case with the resident and concur with resident documentation of history, physical exam, assessment, and treatment plan, unless otherwise noted. No acute complaints. Afeb. VSS Gen: NAD Abdomen: Soft. NT Inc C/D/I Stable for discharge. Instructions and precautions given. Spencer Hou MD, FACOG, FACS Gynecologic Oncology Pager: [phone] * Radha Renae RN - 07/27/2017 11:21 AM VIDEO GAMES STORYWRITER I have reviewed the notes, assessments, and/or procedures performed by Lyndsey Barriga RN and concur with her documentation unless otherwise noted. * Angelina Posada MD - 07/27/2017 9:41 AM VIDEO GAMES STORYWRITER Formatting of this note may be different [...] hours after catheter removed. Anesthesia Pain pager: [phone] No Known Allergies Inpatient Medications Scheduled Meds: [...] Negro Galvez MD - 07/27/2017 2:47 PM VIDEO GAMES STORYWRITER ATTESTATION I personally observed the resident performing the E/M, discussed case with resident, and concur with resident documentation of history, physical assessment and treatment plan unless otherwise noted. * Socorro Mukherjee, RT - 07/27/2017 9:18 AM VIDEO GAMES STORYWRITER Formatting of this note may be different [...] Date: 07/27/2017 Welch AC=Airway clearance AM=Aerosolized medication BA=Shackelford aerosol DB&C=Deep breathe & cough FEV1=Forced expiratory volume in first second) IC=Inspiratory capacity LE=Lung expansion MDI=Metered dose inhaler Neb=Nebulizer O2=Oxygen Oxim=Oximetry PEFR=Peak expiratory flow rate OPERATOR CATALYST CONCENTRATION=Rapid Response Team * Mireya Corrigan MD - 07/27/2017 6:44 AM VIDEO GAMES STORYWRITER Formatting of this note may be different from the original. Gynecology/Oncology Post-operative Progress Note KNIFE OPERATOR/ONC Post-operative Day 2 Subjective She reports that [...] 323 -pathology pending, f/u Pain: -Controlled on UNION LABORER- dilaudid and PCEA ID: - received Ancef prior to procedure Neuro/psych: -NA Endo: -NA Prophylaxis: - lovenox, SCDs, IS, pepcid Access/Drains: -PIV x 2 Discharge planning: -lovenox teaching ordered Disposition:Will remain inpatient for routine post op care. D/c PCEA, possible discharge tomorrow. Does not need Lovenox -Discuss with Dr. Savi Corrigan MD Obstetrics & Gynecology PGY-4 Shaker Out Onc Pager [phone] Associated attestation - Spencer Hou MD - 07/27/2017 4:54 PM VIDEO GAMES STORYWRITER I personally performed the welch portions of [...] Hou MD, FACOG, FACS Gynecologic Oncology Pager: [phone] * Angelina Posada MD - 07/26/2017 1:32 PM VIDEO GAMES STORYWRITER Formatting of this note may be different from the original. Anesthesiology Acute Pain Service Date of Service: 07/26/2017 Name: Devendra Romero is a 31 y.o. female : 1985 PROCEDURE: Procedure(s) with comments: EXPLORATORY LAPAROTOMY, RIGHT SALPINGO-OOPHORECTOMY, LEFT OVARIAN CYSTECTOMY - CASE LENGTH 4 HOURS, REQUEST [id number] START POD #: 1 ANALGESIA TECHNIQUE Epidural catheter: bupivacaine 0.1% ADJUNCT ANALGESIA MEDICATIONS oxycodone acetaminophen PO ibuprofen TREATMENT PLAN Continue use of epidural for pain management Discontinue dilaudid UNION LABORER, added oral ibuprofen and oxycodone. Anesthesia Pain pager: [phone] No Known Allergies Inpatient Medications Scheduled Meds: [...] 1 tablet Oral BID Continuous Infusions: bupivacaine UNION LABORER 0.1% in NS 50mL epidural infusion syr (std conc) PRN and Respiratory Meds:diphenhydrAMINE Q4H PRN, naloxone PRN, naloxone PRN, oxyCODONE Q4H PRN, prochlorperazine Q6H PRN Anticoagulants heparin (porcine) 2,000 Units in sodium chloride 0.9% (NS) 40 mL IRR Syr [employer] Products Sales Representative to OR enoxaparin (LOVENOX) syringe 40 mg QDAY HPI Visual Analog Scale (VAS) (0-10 Scale) At rest: 2 Patient satisfied with pain control: Yes Side Effects: none EXAM Recent Vitals Vital Signs: 24 Hour Range BP: 106/50 (07/26 1248) Temp: 36.3 C (97.4 F) (07/26 1248) Pulse: 55 (07/26 1248) Respirations: 16 PER MINUTE (07/26 1248) SpO2: [...] Negro Galvez MD - 07/26/2017 3:26 PM VIDEO GAMES STORYWRITER ATTESTATION I personally observed the resident performing the E/M, discussed case with resident, and concur with resident documentation of history, physical assessment and treatment plan unless otherwise noted. * Katherine Barrios RN - 07/26/2017 11:15 AM VIDEO GAMES STORYWRITER 1055 RN educated pt on the need [...] eat lunch. Pt epidural turned off. 1350 UNION LABORER discontinued. Epidural restarted at the same settings. [...] Mireya Corrigan MD - 07/26/2017 8:01 AM VIDEO GAMES STORYWRITER Formatting of this note may be different from the original. Gynecology/Oncology Post-operative Progress Note KNIFE OPERATOR/ONC Post-operative Day 1 Subjective Patient reports nausea and had one episode of emesis over night. Her nausea improves with Zofran. She has only tolerated sips of water. Pt has a rodriguez in and denies flatus Pain is well controlled on her PCEA and UNION LABORER Pt denies fever or chills. Objective Patient [...] 323 -pathology pending, f/u Pain: -Controlled on UNION LABORER- dilaudid and PCEA ID: - received Ancef prior to procedure Neuro/psych: -NA Endo: -NA Prophylaxis: - lovenox, SCDs, IS, pepcid Access/Drains: -PIV x 2 Discharge planning: -lovenox teaching ordered Disposition:Will remain inpatient for routine post op care. PCEA to remain in today -Discuss with Dr. Savi Corrigan MD Obstetrics & Gynecology PGY-4 Shaker Out Onc Pager [phone] Associated attestation - Spencer Hou MD - 07/26/2017 9:41 PM VIDEO GAMES STORYWRITER I personally performed the welch portions of [...] Hou MD, FACOG, FACS Gynecologic Oncology Pager: [phone] * Malik Edwards RN - 07/25/2017 8:32 PM VIDEO GAMES STORYWRITER Patient had an episode on nausea and vomiting. See flow chart for output. Zofran administered per orders. Patient up to the chair with 2 person assist, tolerated well. Complained of mild dizziness which subsided. Denies pain, encouraged to use UNION LABORER & PCEA for pain control. Will continue to assess and monitor. * Mabel Bush, RT - 07/25/2017 6:41 PM VIDEO GAMES STORYWRITER Formatting of this note may be different [...] Date: 07/25/2017 Welch AC=Airway clearance AM=Aerosolized medication BA=Shackelford aerosol DB&C=Deep breathe & cough FEV1=Forced expiratory volume in first second) IC=Inspiratory capacity LE=Lung expansion MDI=Metered dose inhaler Neb=Nebulizer O2=Oxygen Oxim=Oximetry PEFR=Peak expiratory flow rate OPERATOR CATALYST CONCENTRATION=Rapid Response Team * Katherine Barrios RN - 07/25/2017 3:12 PM VIDEO GAMES STORYWRITER Patient arrived on unit via cart accompanied by transport. Patient transferred to the bed with assistance. Orders released, reviewed, and implemented as appropriate. Oriented to surroundings, call light within reach. Plan of care reviewed. Will continue to monitor and assess. * Alix Humphries PA-C - 07/25/2017 2:27 PM VIDEO GAMES STORYWRITER Formatting of this note may be different from the original. Post Op Update Note: Patient is still quite groggy from anesthesia. She reports pain is controlled on the superior portion of her abdomen but is a 7/10 on the inferior aspect. Anesthesia team added dilaudid UNION LABORER for this. Has not yet ambulated. BP [...] pain. Alix Humphries PA-C Gynecologic Oncology Pager [phone] * Gail Barnhart RN - 07/25/2017 11:49 AM VIDEO GAMES STORYWRITER After bolus given in epidural by Dr. Lane patient stated that her pain did not decrease.Ice test also performed by Dr. Lane, Patient not having good coverage from epidural. Dr. Lane ordered to stop epidural infusion at this time and start Dilaudid UNION LABORER. Will re-evaluate replacing epidural after patients pain is controlled. in this encounter H&P Notes * Mireya Corrigan MD - 07/25/2017 6:53 AM VIDEO GAMES STORYWRITER Formatting of this note may be different [...] Result Value Ref Range Urine-HCG NEG Specific Orick 1.026 Last Dose Beta Blockers/Anticoagulants: N/A Point of Care Testing: (Last 24 hours): I have examined the patient, and there are no significant changes in their condition, from the previous H&P performed on 07/19/17. Mireya Corrigan MD Pager [phone] Associated attestation - Cong Elizabeth MD - 07/25/2017 6:58 AM VIDEO GAMES STORYWRITER I performed a history and physical examination of the patient and discussed her management with the resident. I reviewed the resident's note and agree with the documented findings and plan of care. Cong Elizabeth MD Gynecologic Oncology in this encounter Miscellaneous Notes * Care Plan - Lyndsey Barriga - 07/28/2017 12:39 PM VIDEO GAMES STORYWRITER Problem: Pain Goal: Management of pain Outcome: [...] stay. * Med Student Progress Note - Veronica Magallanes MS - 07/28/2017 6:18 AM VIDEO GAMES STORYWRITER Formatting of this note may be different from the original. Gynecology/Oncology Post-operative Progress Note KNIFE OPERATOR/ONC Post-operative Day 3 Subjective: Patient is doing [...] Lyly Thorpe RN - 07/28/2017 12:19 AM VIDEO GAMES STORYWRITER Problem: Falls, High Risk of Goal: Absence of falls-Adult Patient Outcome: Goal Achieved Date Met: 07/28/17 Pt is ambulating with steady gait. This RN educated Pt about being UAL. Pt stated understanding. Will continue to monitor. * Care Plan - Lyndsey Barriga - 07/27/2017 12:47 PM VIDEO GAMES STORYWRITER Problem: Pain Goal: Management of pain Outcome: [...] Cong Elizabeth MD - 07/27/2017 9:19 AM VIDEO GAMES STORYWRITER [facility] [address] [facility]. [place], [place] [address] PATIENT NAME: DEVENDRA ROMERO MR#/PT#: [id number] Page 1 OPERATIVE REPORT DATE OF OPERATION: 07/25/2017 SURGEON: Cong Elizabeth MD See other dictation. Duplicate in error. MEV / MEDQ /[id number] cc: - Cong Elizabeth MD * Med Student Progress Note - Julia Magallanesbeth, MS - 07/27/2017 6:18 AM VIDEO GAMES STORYWRITER Formatting of this note may be different from the original. Gynecology/Oncology Post-operative Progress Note KNIFE OPERATOR/ONC Post-operative Day 2 Subjective: Patient is awake in bed this morning. Reports an increase in pain after ambulating, 5-6/10. Endorses soreness throughout her abdomen, RLQ. Patient slept well overnight with no acute events. Denies nausea/vomiting since yesterday morning. Stoney is helping. She has been able to [...] at 07/27/17617 Last data filed at 07/27/17 06 Gross per 24 hour Intake 1301 ml [...] 290 -pathology pending, f/u Pain: -Controlled on UNION LABORER-dilaudid and PCEA ID: -received ancef prior to procedure Neuro/psych: -Reports good mood Endo: -N/A Prophylaxis: -lovenox, SCDs, IS, pepcid Disposition: Remain inpatient at this time. -Discussed with Dr. Savi Magallanes, MS3 * Case Mgmt DC Plan - Randi Ambriz - 07/27/2017 5:09 AM VIDEO GAMES STORYWRITER Formatting of this note may be different [...] a med voucher. Pt will return to [facility] for primary care. Emergency Contact Extended Emergency Contact Information Primary Emergency Contact: Ari Romero Address: [address] [place] [address] [facility] Relation: Spouse Secondary Emergency Contact: Chepe Dawson [facility] Relation: Father Mother: Evelyn Traylor [facility] DPOA None Transportation Does the patient need [...] needed?: N/A Support Systems: Spouse/Partner, Other family, Denominational/Jain affiliated (Pt' s does not work outside [...] Coverage: None (Pt does not have any WILDLIFE AND GAME PROTECTOR prescriptions. She would use the [facility] pharmacy.) ? 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 Financial Assistance Needed? Yes, Pt may need a medication voucher. Current/Previous Services ? PCP Carlie Sorto Pt's PCP is through [facility]. ? DME DME at home: Nebulizer (Pt's [...] ? Outpatient Therapy PT: No OT: No COLLEGE PROFESSOR: No ? SNF/NH SNF: No NH: No [...] Suspected Abuse?: No Randi Ambriz LMSW Pg [phone] * Care Plan - Katherine Barrios RN - 07/26/2017 1:11 PM VIDEO GAMES STORYWRITER Problem: Pain Goal: Management of pain Outcome: [...] - Randi Ambriz - 07/26/2017 11:07 AM VIDEO GAMES STORYWRITER Case Management Progress Note NAME:Devendra Romero : [...] Discharge Date: 07/28/17 Randi Ambriz LMSW Pg [phone] * Operative Report (DICTATED ONLY) - Cong Elizabeth MD - 07/26/2017 8:52 AM VIDEO GAMES STORYWRITER Formatting of this note may be different from the original. [facility] [address] [place], [place] [address] PATIENT NAME: DEVENDRA ROMERO MR#/PT#: [id number] Page 3 OPERATIVE REPORT DATE OF OPERATION: 07/25/2017 SURGEON: Cong Elizabeth MD WIRE PHOTO OPERATOR(S): Mireya Corrigan MD PREOPERATIVE DIAGNOSIS: Pelvic mass. [...] Dictated by: Mireya Corrigan MD / MEDQ /[id number] cc: - Cong Elizabeth MD * Med Student Progress Note - Veronica Magallanes, MS - 07/26/2017 6:29 AM VIDEO GAMES STORYWRITER Formatting of this note may be different from the original. Gynecology/Oncology Post-operative Progress Note KNIFE OPERATOR/ONC Post-operative Day 1 Subjective: Patient is awake [...] Katherine Barrios RN - 07/25/2017 5:50 PM VIDEO GAMES STORYWRITER Problem: Pain Goal: Management of pain Outcome: Goal Ongoing Pt has had no c/o pain. UNION LABORER and PCEA working well. Problem: Falls, High Risk of Goal: Absence of falls-Adult Patient Outcome: Goal Ongoing Bed alarm on. Problem: Discharge Planning Goal: Prepared for discharge Outcome: Goal Ongoing Pt aware of plan * Procedures (Immed Post or Bedside) - Mireya Corrigan MD - 07/25/2017 10:37 AM VIDEO GAMES STORYWRITER Formatting of this note may be different [...] PACU - stable Mireya Corrigan MD Pager [phone] Associated attestation - Cong Elizabeth MD - 07/25/2017 2:56 PM VIDEO GAMES STORYWRITER Formatting of this note may be different [...] Pelvic mass in female RIGHT 7:15 AM VIDEO GAMES STORYWRITER SALPINGO-OOPHORECTOMY, LEFT OVARIAN CYSTECTOMY Special Needs 07/21- CASE MOVED FROM 08/01 TO 07/25, REQUEST 0262 START, PER CHANGE FORM Leno MARY RN ([id number]) in this encounter Results * COMPREHENSIVE METABOLIC [...] Performing Laboratory [facility] [address] [place] [address] * CBC (07/27/2017 4:34 AM) Component Value [...] Specimen Performing Laboratory [facility] [address] [place] [address] * PHOSPHORUS (07/27/2017 4:34 AM) Component Value Ref Range Phosphorus 2.4 2.0 - 4.0 MG/DL Specimen Performing Laboratory [facility] [address] [place] [address] * MAGNESIUM (07/27/2017 4:34 AM) Component Value Ref Range Magnesium 2.2 1.6 - 2.6 mg/dL Specimen Performing Laboratory [facility] [address] [place] [address] * COMPREHENSIVE METABOLIC PANEL (07/26/2017 5:00 AM) [...] questions. Specimen Performing Laboratory [facility] [address] [place] [address] * CBC (07/26/2017 5:00 AM) Component Value [...] FL Specimen Performing Laboratory [facility] [address] [place] [address] * PHOSPHORUS (07/26/2017 5:00 AM) Component Value Ref Range Phosphorus 2.9 2.0 - 4.0 MG/DL Specimen Performing Laboratory [facility] [address] [place] [address] * MAGNESIUM (07/26/2017 5:00 AM) Component Value Ref Range Magnesium 2.4 1.6 - 2.6 mg/dL Specimen Performing Laboratory [facility] [address] [place] [address] * NON-KNIFE OPERATOR CYTOLOGY (BODY FLUIDS/TISSUE) (07/25/2017 11:05 AM) Component Value Ref Range Cytology [facility] [email or web address] Department of Pathology and Laboratory Medicine [address] [place] [address] Surgical Pathology Office: [phone] CYTOLOGY REPORT NAME: DEVENDRA ROMERO CYTOLOGY #: [id number] MR #: [id number] ALT ID #: BILLING #: [id number] LOCATION: [facility] DATE OF PROCEDURE: 07/25/2017 AGE: 31 [...] Please also see concurrent surgical pathology report ([id number]). Comment: Immunohistochemical stains on cell block show [...] Component Value Ref Range PATHOLOGY REPORT [facility] [email or web address] Department of Pathology and Laboratory Medicine [address] [place] [address] Surgical Pathology Office: [phone] SURGICAL PATHOLOGY REPORT NAME: DEVENDRA ROMERO SURG PATH #: [id number] MR #: [id number] SPECIMEN CLASS: SR BILLING #: [id number] ALT ID #: LOCATION: DISCHARGED DATE OF [...] supporting the above diagnosis. Pursuant to the Parts Sales Advisor Program at the [facility] Pathology Department, selected slides from [...] fluid. No papillary excrescences are grossly identified. Jr. Systems Administrator sections are submitted as follows: A1FS Three separate areas of the ovary. A2 Jr. Systems Administrator sections of the fallopian tube and entire transected fimbriated end. A3-A8 Jr. Systems Administrator sections of smaller cysts (two fragments per cassette). A9-A11 Jr. Systems Administrator sections of larger cyst wall (three fragments per cassette). [id number] self pay representative sections of ovarian cyst (three fragments per cassette submitted on 07/26/2017). (sld) B. Received in formalin labeled patient's name and "left ovarian cyst wall" is a 3.0 x 1.5 x 0.3 cm aggregate of pink-warren, irregular fragments of tissue. The entire specimen is submitted in cassette B1. 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 Sean Frausto MD If immunohistochemical stains and/or in situ hybridization are cited in this report, the performance characteristics were determined by the Department of Pathology and Laboratory Medicine of the [facility] ([facility]) in compliance with CLIA'88 regulations. [...] of Pathology and Laboratory Medicine of the [facility]. It has not been cleared or approved by the FDA. The FDA has determined that such clearance or approval is not necessary. Specimen Performing Laboratory [facility] RESULTS * TYPE & CROSSMATCH (07/25/2017 6:57 AM) Component Value Ref Range Units Ordered 0 Crossmatch Expires 07/28/2017 Record Check FOUND ABO/RH(D) O POS Antibody Screen NEG Electronic Crossmatch YES Specimen Performing Laboratory [facility] [address] [place] [address] * TEST-URINE (07/25/2017 6:20 AM) Component Value Ref Range Urine-HCG NEG Specific Orick 1.026 Specimen Performing Laboratory Urine [facility] [address] [place] [address] in this encounter Visit Diagnoses Diagnosis Pelvic mass in female Abdominal or pelvic swelling, mass or lump, unspecified site in this encounter Admitting Diagnoses Diagnosis Pelvic mass in female - UNKNOWN Abdominal or pelvic swelling, mass or lump, unspecified site Ovarian mass, right in this encounter
--- OUTSIDE RECORDS SUMMARY | 2017-08-06 11:44 | XMS REPORT | Encounter Summary ---
Author Author [facility] Organization [facility] Address Unknown Phone Unavailable Care Team Providers Care Bank Secrecy Act Officer Name Role Phone PCP Unavailable Reason for Visit * Auth/Cert Status Reason Specialty Diagnoses / Referred By Referred To Procedures Contact Contact Diagnoses Pelvic mass in female U NKNOWN Ovarian mass, right P rocedures PA BSO W/OMENTECTOMY BRIAN DEBULKING W/LMPHADECTOMY DEBULKING TUMOR OVARY,TOTAL ABDOMINAL HYSTERECTOMY, BILATERAL SALPINGOOOPHOREC JESU, OMENTECTOMY, PELVIC AND PARA-AORTIC LYMPH NODE DISSECTION, DIAPHRAGM STRIPPING, POSSIBLE BOWEL RESECTION Encounter Details Date Type Department Care Team Description 07/25/2017 Anesthesia Main Operating Room Brennan Aguilar MD [address] [facility] [address] [place] [address] [place] [address] [place], [place] [id number] Social History Tobacco Use Types Packs/Day Years Used Date Passive Smoke Exposure - Never Smoker Smokeless Tobacco: Never Used Alcohol Use Drinks/Week oz/Week Comments No Sex Assigned at Date Recorded Not on file as of this encounter OR Notes * Anesthesia Postprocedure Evaluation - Viviane Villalobos DO - 07/25/2017 2:00 PM FACILITIES CLERK Post-Anesthesia Evaluation Name: Devendra Anderson : 1985 Age: 31 y.o. Sex: female Procedure Date: 07/25/2017 Procedure: Procedure(s) with comments: EXPLORATORY LAPAROTOMY, RIGHT SALPINGO-OOPHORECTOMY, LEFT OVARIAN CYSTECTOMY - CASE LENGTH 4 HOURS, REQUEST 0730 START Surgeon: Surgeon(s): MD Mireya Boggs MD Post-Anesthesia Vitals BP: 138/78 (07/25 1330) Temp: 36.4 C (97.5 F) (07/25 1340) Pulse: 50 (07/25 1340) Respirations: 20 PER MINUTE (07/25 1340) SpO2: 94 % (07/25 134) O2 Delivery: None (Room Air) (07/25 1330) SpO2 Pulse: 50 (07/250) Height: 167.6 cm (66") (07/25 0646) Post Anesthesia Evaluation Note Evaluation location: Pre/Post Patient participation: recovered; patient participated in evaluation Level of consciousness: alert Pain management: adequate Hydration: normovolemia Temperature: 36.0C - 38.4C Airway patency: adequate Regional/Neuraxial: Epidural in place Perioperative Events Perioperative events: no Post-op nausea and vomiting: no PONV Postoperative Status Cardiovascular status: hemodynamically stable Respiratory status: spontaneous ventilation Follow-up needed: none Additional comments: Epidural bolused with 1% lidocaine in PACU, level at approximately T4-8, level currently covering upper portion of incision but not lower. Patient declined replacement of epidural at this time. 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 Perioperative Events Perioperative Event: No Associated attestation - Nimo Lane MD - 07/25/2017 2:39 PM FACILITIES CLERK Formatting of this note may be different from the original. ATTESTATION Post-Anesthesia Evaluation Attestation: I reviewed and agree the indicated post- anethesia care was provided. Staff name: Nimo Lane MD Date: 07/25/2017 * Anesthesia Procedure Notes - Angelina Posada MD - 07/25/2017 7:23 AM FACILITIES CLERK Associated Order(s): ANESTHESIA EPIDURAL BLOCK Anesthesia Procedure: Epidural Block EPIDURAL BLOCK Date/Time: [...] monitoring data during procedure. Performed by: MAYTE GALVEZ Authorized by: MAYTE GALVEZ Associated attestation - Mayte Galvez MD - 07/25/2017 8:56 AM FACILITIES CLERK Formatting of this note may be different from the original. ATTESTATION I was present during the entire procedure performed by a resident Staff name: Mayte Galvez MD Date: 07/25/2017 * Anesthesia Preprocedure Evaluation - Angelina Posada MD - 07/25/2017 6:57 AM FACILITIES CLERK Formatting of this note may be different from the original. Anesthesia Pre-Procedure Evaluation Name: Devendra Anderson : 1985 Age: 31 y.o. Sex: female Procedure Date: 07/25/2017 Procedure: Procedure(s) with comments: DEBULKING TUMOR OVARY,TOTAL ABDOMINAL HYSTERECTOMY, BILATERAL SALPINGOOOPHORECTOMY, OMENTECTOMY, PELVIC AND PARA-AORTIC LYMPH NODE DISSECTION , DIAPHRAGM STRIPPING, POSSIBLE BOWEL RESECTION - CASE LENGTH 4 HOURS, REQUEST 0730 START Physical Assessment Vital Signs (last filed in past 24 hours): BP: 141/75 (07/25 646) Pulse: 63 (07/25 646) Respirations: 15 PER MINUTE (07/25 646) SpO2: 96 % (07/25 646) O2 Delivery: None (Room Air) (07/25 646) Patient History No Known Allergies Current Medications Medication Directions metroNIDAZOLE (FLAGYL) 500 mg tablet Take 2 tablets by mouth as directed. Take 2 pills at 1pm, 3 pm, and 11 pm the day before your surgery. neomycin 500 mg tablet Take 2 tablets by mouth as directed. Take 2 tablets at 1 pm, and 11pm the day prior to your surgery. ondansetron (ZOFRAN ODT) 8 mg rapid dissolve tablet Dissolve 1 tablet by mouth every 8 hours as needed for Nausea or Vomiting. Place on tongue to disolve. prednisone (DELTASONE) 20 mg tablet TAKE TWO TABLETS BY MOUTH ONCE DAILY FOR 5 DAYS ZITHROMAX Z-JORGE 250 mg tablet TAKE TWO TABLETS BY MOUTH ON DAY 1 THEN TAKE ONE TABLET ON DAYS 2-5 Review of Systems/Medical History Patient summary reviewed Pertinent labs reviewed PONV Screening: Female gender, Postoperative opioids and Non-smoker No history of anesthetic complications No family history of anesthetic complications Airway - negative Pulmonary - negative Cardiovascular Exercise tolerance: >4 METS Beta Viki therapy: No GI/Hepatic/Renal Bowel prep Neuro/Psych - negative Musculoskeletal - negative Endocrine/Other No diabetes No hypothyroidism No hyperthyroidism Malignancy Obesity Not ; GA:Unknown, GP:No obstetric history on file. Physical Exam Airway Findings Mallampati: II TM distance: >3 FB Neck ROM: full Mouth opening: good Airway patency: adequate Dental Findings: Cardiovascular Findings: Negative Pulmonary Findings: Negative Abdominal Findings: Obese Neurological Findings: Negative Diagnostic Tests Hematology: Lab Results Component Value Date HGB 12.8 07/19/2017 HCT 38.3 07/19/2017 PLTCT 307 07/19/2017 WBC 8.8 07/19/2017 NEUT 46 07/19/2017 ANC 4.00 07/19/2017 ALC 3.00 07/19/2017 JERSON 6 07/19/2017 AMC 0.60 07/19/2017 EOSA 12 07/19/2017 ABC 0.10 07/19/2017 MCV 87.8 07/19/2017 MCH 29.3 07/19/2017 MCHC 33.3 07/19/2017 MPV 8.6 07/19/2017 RDW 13.1 07/19/2017 General Chemistry: Lab Results Component Value Date NA 136 07/19/2017 K 4.0 07/19/2017 CL 106 07/19/2017 CO2 26 07/19/2017 GAP 4 07/19/2017 BUN 13 07/19/2017 CR 0.63 07/19/2017 GLU 94 07/19/2017 CA 9.3 07/19/2017 ALBUMIN 3.9 07/19/2017 TOTBILI 0.4 07/19/2017 Coagulation: Lab Results Component Value Date PTT 28.2 07/19/2017 INR 1.0 07/19/2017 Anesthesia Plan ASA score: 3 Plan: general, epidural for post operative pain and invasive monitoring Induction method: intravenous NPO status: acceptable Comments: (Last ate 07/23/17. Consented for invasive monitoring if needed. ) Informed Consent Anesthetic plan and risks discussed with patient. Use of blood products discussed with patient; consented to blood products. Plan discussed with: resident. in this encounter Plan of Treatment Not on fileas of this encounter Results * ANESTHESIA EPIDURAL BLOCK (07/25/2017 8:56 AM) [...] monitoring data during procedure. Performed by: MAYTE GALVEZ Authorized by: MAYTE GALVEZ in this encounter Visit Diagnoses Not on filein this encounter Administered Medications Medication Order MAR Action Action Date Dose Rate Site acetaminophen (OFIRMEV) injection Given 07/25/2017 1,000 mg Administer over 15 Minutes, 09:24 FACILITIES CLERK INTRA-PROCEDURE MED, Starting Tue07/25/17 at 0924, Until Tue07/25/17 at 1049, Pain non-opioid: may be used alone or in combination with opioid analgesia, Anesthesia Intra-op bupivacaine (MARCAINE) 0.25 % injection Given 07/25/2017 3 mL INTRA-PROCEDURE MED, Starting Tue 09:22 FACILITIES CLERK 07/25/17 at 0922, Until Tue07/25/17 at 1049, Anesthesia Intra-op Given 07/25/2017 3 mL 10:16 FACILITIES CLERK Given 07/25/2017 4 mL 10:41 FACILITIES CLERK bupivacaine 0.0625% in NS 50mL epidural Given - New 07/25/2017 6 mL/hr 6 mL/hr infusion syringe Bag 09:29 FACILITIES CLERK 50 mL, INTRA-PROCEDURE MED(CONT), Starting Tue07/25/17 at 0929, Until Tue07/25/17 at 1049, Anesthesia Intra-op Bolus 07/25/2017 4 mL 09:45 FACILITIES CLERK bupivacaine PF (MARCAINE) 0.25 % 10 mL Bolus 07/25/2017 3 mL in water (sterile) for injection 20 mL 08:40 FACILITIES CLERK Injection INTRA-PROCEDURE MED(CONT), Starting Tue07/25/17 at 0753, Until Tue07/25/17 at 1049, Anesthesia Intra-op Bolus 07/25/2017 3 mL 08:45 FACILITIES CLERK Bolus 07/25/2017 4 mL 08:58 FACILITIES CLERK ceFAZolin (ANCEF) injection Given 07/25/2017 3 g INTRA-PROCEDURE MED, Starting Tue 07:54 FACILITIES CLERK 07/25/17 at 0754, Until Tue07/25/17 at 1049, Anesthesia Intra-op dexamethasone (DECADRON) injection Given 07/25/2017 4 mg Intravenous, INTRA-PROCEDURE MED, 07:46 FACILITIES CLERK Starting Tue07/25/17 at 0746, Until Tue07/25/17 at 1049, Nausea/Vomiting Injectable, Anesthesia Intra-op electrolyte-A (PLASMA-LYTE A PH 7.4) Given - New 07/25/2017 injection Bag 07:31 FACILITIES CLERK INTRA-PROCEDURE MED(CONT), Starting Tue07/25/17 at 0731, Until Tue07/25/17 at 1049, Anesthesia Intra-op Given - New Bag 07/25/2017 09:23 FACILITIES CLERK fentaNYL citrate PF (SUBLIMAZE) Given 07/25/2017 50 mcg injection 07:29 FACILITIES CLERK INTRA-PROCEDURE MED, Starting Tue07/25/17 at 0724, Until Tue07/25/17 at 1049, Pain Injectable, Anesthesia Intra-op Given 07/25/2017 50 mcg 08:48 FACILITIES CLERK Given 07/25/2017 50 mcg 09:06 FACILITIES CLERK haloperidol (HALDOL) injection Given 07/25/2017 1 mg INTRA-PROCEDURE MED, Starting Tue 09:27 FACILITIES CLERK 07/25/17 at 0927, Until Tue07/25/17 at 1049, Agitation Injectable, Anxiety Injectable, Anesthesia Intra-op lactated ringers infusion Given - New 07/25/2017 1,000 mL 20 mL/hr 1,000 mL, 1,000 mL, Intravenous, at 20 Bag 06:59 FACILITIES CLERK mL/hr, CONTINUOUS, Starting Tue07/25/17 at 0545, Until Tue07/26/17 at 1253, Pre-Op Given - New Bag 07/25/2017 10:34 FACILITIES CLERK lidocaine (PF) injection Given 07/25/2017 80 mg INTRA-PROCEDURE MED, Starting Tue 07:29 FACILITIES CLERK 07/25/17 at 0729, Until Tue07/25/17 at 1049, Anesthesia Intra-op lidocaine 1.5%/EPINEPHrine 1:200,000 Given 07/25/2017 3 mL injection 07:14 FACILITIES CLERK INTRA-PROCEDURE MED, Starting Tue07/25/17 at 0714, Until Tue07/25/17 at 1049, Anesthesia Intra-op lidocaine PF 1% (10 mg/mL) injection Given 07/25/2017 3 mL INTRA-PROCEDURE MED, Starting Tue 07:08 FACILITIES CLERK 07/25/17 at 0710, Until Tue07/25/17 at 1049, Anesthesia Intra-op midazolam (VERSED) injection Given 07/25/2017 2 mg Intravenous, INTRA-PROCEDURE MED, 07:24 FACILITIES CLERK Starting Tue07/25/17 at 0724, Until Tue07/25/17 at 1049, Agitation Injectable, Anxiety Injectable, Anesthesia Intra-op ondansetron (ZOFRAN) injection Given 07/25/2017 4 mg Intravenous, INTRA-PROCEDURE MED, 10:19 FACILITIES CLERK Starting Tue07/25/17 at 1019, Until Tue07/25/17 at 1049, Nausea/Vomiting Injectable, Anesthesia Intra-op propofol (DIPRIVAN) injection Given 07/25/2017 200 mg INTRA-PROCEDURE MED, Starting Tue 07:29 FACILITIES CLERK 07/25/17 at 0729, Until Tue07/25/17 at 1049, Anesthesia Intra-op rocuronium (ZEMURON) injection Given 07/25/2017 10 mg Intravenous, INTRA-PROCEDURE MED, 08:12 FACILITIES CLERK Starting Tue07/25/17 at 0729, Until Tue07/25/17 at 1049, Anesthesia Intra-op Given 07/25/2017 10 mg 08:33 FACILITIES CLERK Given 07/25/2017 10 mg 09:24 FACILITIES CLERK sugammadex (BRIDION) injection Given 07/25/2017 274 mg Intravenous, INTRA-PROCEDURE MED, 10:08 FACILITIES CLERK Starting Tue07/25/17 at 1008, Until Tue07/25/17 at 1049, Anesthesia Intra-op in this encounter
--- OUTSIDE RECORDS SUMMARY | 2017-08-06 11:44 | XMS REPORT | Encounter Summary ---
Author Author [facility] Organization [facility] Address Unknown Phone Unavailable Care Team Providers Care Senior Net Engineer Name Role Phone PCP Unavailable Encounter Details Date Type Department Care Team Description 07/25/2017 Procedure Pass Main Operating Room [address] [place] [address] Social History Tobacco Use Types Packs/Day Years [...]
--- OUTSIDE RECORDS SUMMARY | 2017-08-06 11:45 | XMS REPORT | Encounter Summary ---
Author Author [facility] Organization [facility] Address Unknown Phone Unavailable Care Team Providers Care Wave Solder Offbearer Name Role Phone PCP Unavailable Encounter Details Date Type Department Care Team Description 07/19/2017 Documentation [facility] Fanta Domingo [facility] Exam [address] [place] [address] Social History Tobacco Use Types Packs/Day Years Used Date Passive Smoke Exposure - Never Smoker Smokeless Tobacco: Never Used Alcohol Use Drinks/Week oz/Week Comments No Sex Assigned at Date Recorded Not on file as of this encounter Progress Notes * Fanta Domingo - 07/19/2017 11:[address] LIGHT LAMP CLEANER [place] notified by [employer], of pt having no insurance and needing surgery within the next 2-3 weeks. [place] met with team; pt has all of the symptoms of a cancer dx, however will need surgery within 2-[address] Elizabeth states pt is at high risk and the surgery is medically emergent. SW met with pt in clinic; pt's spouse present for discussion. Pt states she will have insurance in September through her employer. Pt states she has STD available for her to use while she is off for surgery; she can utilize FMLA. Pt states she has not spoken to a FC. Discussed that SW will notify the FC team to follow up with pt, however surgery and any other medically necessary apts will be scheduled. Pt has three children; all with [place] for insurance. Discussed that biopsies from surgery will determine if pt would likely qualify for Medicaid. SW provided business card should further needs arise. SW emailed CORY Quispe/ [facility]ORY Goodrich to inform them of pt's ins plan/ concern. Fanta Domingo LMSW in this encounter Plan of Treatment Not on fileas of this encounter Visit Diagnoses Not on filein this encounter
--- OUTSIDE RECORDS SUMMARY | 2017-08-06 11:45 | XMS REPORT | Encounter Summary ---
Author Author [facility] Organization [facility] Address Unknown Phone Unavailable Care Team Providers Care Medical Technologist Generalist Name Role Phone PCP Unavailable Reason for Visit * Reason Comments Heme/Onc Care New Patient * Consult, Test & Treat (Routine) Status Reason Specialty Diagnoses / Referred By Referred To Procedures Contact Contact New Request Obstetrics & Diagnoses Carlie Sorto MD Spoozak, Lori A, Gynecology / Pelvic mass, [address] Oncology self pay -[place], [place] [address] [place] $150, Carlie [address] [place], [place] PATRICE Sorto MW Phone: [phone] p [phone] Phone: eMindful MD-NEW PATIENT [phone] Encounter Details Date Type Department Care Team Description 07/19/[address] [facility] Wilma Elizabeth MD Pelvic mass in female [facility] Exam [address] (Primary [address] [place] [address] Dx);[place] [address] (HCC);Malignant ascites [phone] Social History Tobacco Use Types Packs/Day Years Used Date Passive Smoke Exposure - Never Smoker Smokeless Tobacco: Never Used Alcohol Use Drinks/Week oz/Week Comments No Sex Assigned at Date Recorded Not on file as of this encounter Last Filed Vital Signs Vital Sign Reading Time Taken Blood Pressure 144/68 07/19/2017 10:08 AM NEWSPAPER MANAGER Pulse 54 07/19/2017 10:08 AM NEWSPAPER MANAGER Temperature 37.1 C (98.7 F) 07/19/2017 10:08 AM NEWSPAPER MANAGER Respiratory Rate 15 07/19/2017 10:08 AM NEWSPAPER MANAGER Oxygen Saturation 100% 07/19/2017 10:08 AM NEWSPAPER MANAGER Inhaled Oxygen - - Concentration Weight 139.8 kg (308 lb 3.2 oz) 07/19/2017 10:08 AM NEWSPAPER MANAGER Height 167.6 cm (5' 6") 07/19/2017 10:08 AM NEWSPAPER MANAGER Body Mass Index 49.74 07/19/2017 10:08 AM NEWSPAPER MANAGER in this encounter Instructions * Patient Instructions - Bhavya Rogers - 07/19/2017 9:40 AM NEWSPAPER MANAGER Thank you for your new patient visit with Dr. Elizabeth. After the visit today we would like for you to get labs. Clinical Nurse Coordinators: Gayle Zimmerman & Alix Burks [phone] We understand that your time is important and want your visit to be as timely as possible. In order for your appointments to occur as closely as possible to the scheduled time, please review the following additional instructions. ? Please arrive 15 minutes prior to your first scheduled appointment time to complete the registration process. ? Bring your photo ID and insurance card with you to check in o If your first appointment is with lab (blood draw) or with your provider, check in on the second floor (Main level). o If your appointment is for lab (blood draw) only, check in on the third floor. in this encounter Progress Notes * Wilma Elizabeth MD - 07/19/2017 9:40 AM NEWSPAPER MANAGER Formatting of this note may be different from the original. .SUBJECTIVEBEGIN GYNECOLOGIC ONCOLOGY EVALUATION Name:Devendra Anderson Date: 07/19/17 Referring Physician: Referring Physician: Carlie Sorto Contact Name & Number: [facility] ED PCP: Liliya Betancourt MD / Lisa Trimble APRN Primary Care Physician: Carlie Sorto CC:pelvic mass, carcinomatosis History of Present Illness: Devendra Anderson is a 31 y.o. female 07/07/17 went to PCP for abdominal pain and muscle cramps. Given flexiril 10 and labs drawn. SD'ed home. 07/08/17 presented to [facility] ED in [place], [place] c/o increasing lumbar back pain x2 [...] part of the mass. CA 125=65.0 07/09/17 Human Resources Manager consult ordered. Recommended CT/ ultrasound guided biopsy of mass or aspiration of the ascites. 07/10/17 patient was discharged and no biopsy was obtained. Referral to Human Resources Manager Onc made. She is here today with her . She is overall asymptomatic unless abdomen is palpated. She has normal menses. She has normal intercourse with her . No discharge. No bladder or bowel issues. PMH: BMI-46.16, Last Pap: 09/17/2015 negative for intraepithelial lesion or malignancy. HPV negative. Abn History of Pap: denies Colonoscopy: denies Mammogram: denies Bone scan: denies DPOA: denies Living Will: denies Reproductive History Menstrual Hx LMP: 06/28/17 Having Periods: Yes Age at first period: 13 Surgical Hx Surgery/Year: T&A, wisdom teeth Hx Age of first live : 23 Number of live births: 2 Number of pregnancies: 2 Did you breastfeed: Yes If Yes, how long? 1 month Oral Control: Yes Years: 6 months, patch, inplanon in left arm- 07/2015, currently in place Infertility Medication: No Year/Med Name: Menopausal Hx Age of last period: N/A Hormone Replacement Therapy: No Years: Past Medical History: History reviewed. No pertinent past medical history. Patient Active Problem List Diagnosis Date Noted Malignant ascites 07/19/2017 Carcinomatosis (HCC) 07/19/2017 Pelvic mass in female 07/19/2017 Past Surgical History: Past Surgical History: Procedure Laterality Date TONSIL AND ADENOIDECTOMY 2011 WISDOM TEETH EXTRACTION Medications: Current Outpatient Prescriptions: prednisone (DELTASONE) 20 mg tablet, TAKE TWO TABLETS BY MOUTH ONCE DAILY FOR 5 DAYS, Disp: , Rfl: 0 ZITHROMAX Z-JORGE 250 mg tablet, TAKE TWO TABLETS BY MOUTH ON DAY 1 THEN TAKE ONE TABLET ON DAYS 2-5, Disp: , Rfl: 0 Allergies: Not on File Social History: Social History Social History Marital status: Spouse name: N/A Number of children: N/A Years of education: N/A Occupational History Not on file. Social History Main Topics Smoking status: Passive Smoke Exposure - Never Smoker Smokeless tobacco: Never Used Alcohol use No Drug use: No Sexual activity: Not on file Other Topics Concern Not on file Social History Narrative No narrative on file Family History: Family History Problem Relation Age of Onset Diabetes Father Hypertension Father Asthma Father Diabetes Maternal Grandmother Stroke Maternal Grandmother Diabetes Paternal Grandmother High Cholesterol Mother Hypertension Maternal Aunt Asthma Maternal Aunt Diabetes Paternal Grandfather Heart Disease Paternal Grandfather Asthma Paternal Grandfather REVIEW OF SYSTEMS: CONSTITUTIONAL: per HPI EYES: negative ENT: negative RESPIRATORY: negative CARDIOVASCULAR: negative GI: negative : per HPI MUSCULO-SKELETAL: negative SKIN: negative ENDOCRINE: negative HEMATOLOGIC: negative ECOG 0 Physical Exam: BP 144/68 (BP Source: Arm, Right, Patient [...] LYMPH NODES: No palpable l ymph nodes CT reviewed, large complex mass and ascites, omental caking Ca 125 65 ASSESSMENT/PLAN: Devnedra Anderson is a 31 y.o. 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 Although, the slow growth of her tumor and low Ca125 is confounding and may be a germ cell or stromal cell tumor. Will get further tumor markers today. I recommend primary debulking. Surgical debulking includes, if feasible, optimal debulking of all disease, including removal of the ovaries, uterus if present, omentum, intraperitoneal disease, and retroperitoneal lymph nodes. Removal of peritoneum and bowel may also be required as well as the potential for removal of the spleen. Peritoneal stripping of the diaphragms may also be required. Based upon the extent of the debulking she may need to be admitted to the ICU postoperatively. Her hospital stay is dependent upon postoperative recovery and/ or return of bowel function and her ability to ambulate, have adequate pain control and accomplish our inpatient recovery goals. She understands that she has the option to decline any and all therapy. She understands that surgery is associated with risk, and may include: injury to bowel/bladder/ureter/blood vessels; may require bowel resection; injury to aorta/vena cava during LND; if peritoneal stripping of the diaphragm, it may include entering into the chest cavity, reactive pleural process, respiratory problems including intubation. Injury to liver may also occur. Infections, such as abscesses/cellulitis and other sources may also occur, but that we reduce those risks with preoperative oral antibiotics and IV antibiotics. She will have a rodriguez catheter in for at least 1 day, if not longer based upon recovery. She is also at risk for postoperative thrombosis (DVTs) which can go to the lungs (pulmonary emboli). She understands that is also a risk based upon known/unknown complications or her inability to recover. She also understands that she may require a blood transfusion, and that based upon her condition, I do not recommend that she donate. She will undergo a bowel prep with antibiotics. Preop/PAT Wilma Elizabeth MD Gynecologic Oncology Pager: [phone] .SUBJECTIVEEND in this encounter Plan of Treatment Not on fileas of this encounter Results * TYPE & SCREEN (NOT CROSSMATCH ELIGIBLE) (07/19/2017 11:20 AM) Component Value Ref Range ABO/RH(D) O POS Antibody Screen NEG Blood Component Type RED CELL GROUP Specimen Performing Laboratory Blood, venous - Blood [facility] [address] [place] [address] * BETA-HCG (07/19/2017 11:20 AM) Component Value Ref Range Beta-HCG,Serum <1 <5 U/L Specimen Performing Laboratory Blood [facility] [address] [place] [address] * ALPHA FETO PROTEIN (AFP) (07/19/2017 11:20 AM) Component Value Ref Range Alpha Feto Protein 1.2 0.0 - 15.0 NG/ML Specimen Performing Laboratory Blood [facility] [address] [place] [address] * LDH-LACTATE DEHYDROGENASE (07/19/2017 11:20 AM) Component Value Ref Range Lactate Dehydrogenase 136 100 - 210 U/L Specimen Performing Laboratory Blood [facility] [address] [place] [address] * INHIBIN A & B TUMOR MARKER (07/19/2017 11:20 AM) Component Value Ref Range Inhibin B <10 Unit: pg/mL REFERENCE VALUE <139 (Premenopausal, Follicular) <92 (Premenopausal, Luteal) <10 (Postmenopausal) ADDITIONAL INFORMATION The testing method is a manual immunoenzymatic assay manufactured by [employer] Values obtained with different assay methods or kits may be different and cannot be used interchangeably. If this test is being ordered as a tumor marker, results cannot be interpreted as absolute evidence for the presence or absence of malignant disease. This test was developed and its performance characteristics determined by [facility] in a manner consistent with CLIA requirements. This test has not been cleared or approved by the U.S. Food and Drug Administration. [facility], [address] [place] [address] Inhibin-A (Dimer) 7.5 Comment: Unit: pg/mL REFERENCE VALUE <97.5 (Premenopausal) <2.1 (Postmenopausal) ADDITIONAL INFORMATION The testing method is an immunoenzymatic assay manufactured by [employer]. and performed on the [employer] DxI 800. Values obtained with different assay methods or kits may be different and cannot be used interchangeably. Test results cannot be interpreted as absolute evidence for the presence or absence of malignant disease. Inhibin A values are not interpretable in females for the investigation of malignant disease. [facility], [facility] [place] [address] Specimen Performing Laboratory Blood RE[facility]ENCE LAB * CEA(CARCINOEMBRYONIC AG) (07/19/2017 11:20 AM) Component Value Ref Range CEA 0.3 <3.0 NG/ML Specimen Performing Laboratory Blood [facility] [address] [place] [address] * CA19.9 (07/19/2017 11:20 AM) Component Value Ref Range CA 19-9 53 (H) <35 U/ml Specimen Performing Laboratory Blood [facility] [address] [place] [address] * CA125 (07/19/2017 11:20 AM) Component Value Ref Range CA-125 130 (H) <35 U/ml Specimen Performing Laboratory Blood [facility] [address] [place] [address] * PROTIME INR (PT) (07/19/2017 11:20 AM) Component Value Ref Range INR 1.0 0.8 - 1.2 Specimen Performing Laboratory Blood [facility] [address] [place] [address] * PTT (APTT) (07/19/2017 11:20 AM) Component Value Ref Range APTT 28.2Comment: NOTE NEW REFERENCE RANGES 21.0 - 39.0 SEC Specimen Performing Laboratory Blood [facility] [address] [place] [address] * COMPREHENSIVE METABOLIC PANEL (07/19/2017 11:20 AM) Component Value Ref Range Sodium 136 (L) 137 - 147 MMOL/L Potassium 4.0 3.5 - 5.1 MMOL/L Chloride 106 98 - 110 MMOL/L Glucose 94 70 - 100 MG/DL Blood Urea Nitrogen 13 7 - 25 MG/DL Creatinine 0.63 0.4 - 1.00 MG/DL Calcium 9.3 8.5 - 10.6 MG/DL Total Protein 7.2 6.0 - 8.0 G/DL Total Bilirubin 0.4 0.3 - 1.2 MG/DL Albumin 3.9 3.5 - 5.0 G/DL Alk Phosphatase 70 25 - 110 U/L AST (SGOT) 11 7 - 40 U/L CO2 26 21 - 30 MMOL/L ALT (SGPT) 13 7 - 56 U/L Anion Gap 4 3 - 12 eGFR Non >60 >60 [...] Pharmacist for questions. Specimen Performing Laboratory Blood [facility] [address] [place] [address] * CBC AND DIFF (07/19/2017 11:20 AM) [...] - 0.20 K/UL Specimen Performing Laboratory Blood [facility] [address] [place] [address] in this encounter Visit Diagnoses Diagnosis Pelvic mass in female - Primary Abdominal or pelvic swelling, mass or lump, unspecified site Carcinomatosis (HCC) Disseminated malignant neoplasm Malignant ascites in this encounter
--- OUTSIDE RECORDS SUMMARY | 2017-08-06 11:45 | XMS REPORT ---
Author Author DAPHNEY CORDOVA Organization [employer] Address Unknown Phone Unavailable Care Team Providers Care Case Investigator Name Role Phone DAPHNEY CORDOVA CP Unavailable Allergies, Adverse Reactions, Alerts Substance Reaction Event Type Tuberculin PPD Info Not Available Drug Allergy Seasonal Info Not Available Non Drug Allergy Problems Problem Type Condition ICD-9 Code Onset Dates Condition Status Assessment Reaction to tuberculin skin test 795.51 Active Medications No Known Medications Procedures Procedure Coding System Code Date Office Visit, New Pt., Level 2 CPT-4 85605 May 21, 2015 Vital Signs Date/Time: May 21, 2015 Temperature 98.6 F Weight 307.5 lbs Height 69 in BMI 45.40 Index Blood Pressure Diastolic 86 mmHg Blood Pressure Systolic 122 mmHg Cardiac Monitoring Heart Rate 86 bpm Results No Known Results Summary Purpose [employer] Submission
--- OUTSIDE RECORDS SUMMARY | 2017-08-06 11:45 | XMS REPORT ---
Author Author RAMY COBIAN [facility] [employer] Address Unknown Phone Unavailable Care Team Providers Care Upholstery Department Supervisor Name Role Phone RAMY COBIAN Unavailable Allergies, Adverse Reactions, Alerts Substance Reaction Event Type Tuberculin PPD Info Not Available Drug Allergy Seasonal Info Not Available Non Drug Allergy Problems Problem Type Condition Code Onset Dates Condition Status Assessment Upper abdominal pain R10.10 Active Assessment Surveillance of implantable subdermal contraceptive Z30.49 Active Assessment Pelvic pain R10.2 Active Assessment Vaginal discharge N89.8 Active Problem Surveillance of implantable subdermal contraceptive Z30.49 Active Assessment Uterine tenderness N94.9 Active Assessment Encounter for counseling regarding contraception Z30.9 Active Assessment Screening for malignant neoplasm of cervix Z12.4 Active Assessment Abdominal cramping R10.9 Active Medications Medication Code System Code Instructions Start Date End Date Status Dosage Flagyl [facility] [address]-74 500 MG Orally 2 times a day Sep 17, 2015 Sep 24, 2015 1 tablet Midol [facility] [address]493 200 MG Orally every 6 hrs 1 capsule as needed Procedures Procedure Coding System Code Date CULTURE, BACTERIA, OTHER CPT-4 83960 Sep 17, 2015 SPECIMEN HANDLING CPT-4 37834 Sep 17, 2015 URINE TEST CPT-4 60049 Sep 17, 2015 Office Visit, Est Pt., Level 4 CPT-4 63190 Sep 17, 2015 URINE CULTURE/COLONY COUNT CPT-4 51009 Sep 17, 2015 Vital Signs Date/Time: Sep 17, 2015 Temperature 98.7 F Weight 323.7 lbs Height 69 in BMI 47.80 Index Blood Pressure Diastolic 80 mmHg Blood Pressure Systolic 136 mmHg Results Name Result Date Reference Range Unit Abnormality Flag TEST, URINE (IN HOUSE) ----RESULTS negative 20150917 ----Lot # [id number] ----Control + [id number] ----Exp date 20150917 UA LONG DIP (IN HOUSE) ----ABIOLA Negative [id number] ----GLU Negative 20150917 ----SG 1.025 20150917 ----KET Negative [id number] ----pH 6.5 20150917 ----Protein Negative 20150917 ----BLO Trace-intact 20150917 ----BRAVO Negative 20150917 ----Color Yellow 20150917 ----Odor None 20150917 ----Exp date 20150917 ----URO 1.0 20150917 ----NIT Negative 20150917 ----Clarity Clear [id number] ----Lot # [id number] Summary Purpose [employer] Submission
--- OUTSIDE RECORDS SUMMARY | 2017-08-06 11:45 | XMS REPORT | Encounter Summary ---
Author Author [facility] Organization [facility] Address Unknown Phone Unavailable Care Team Providers Care Yard Demurrage Clerk Name Role Phone PCP Unavailable Reason for Visit * Reason Comments Navigation Assessment Encounter Details Date Type Department Care Team Description 07/12/2017 Telephone [facility] Wilma Elizabeth MD Navigation Assessment [facility] [address] [place] [address] [place] [address] [phone] Social History Tobacco Use Types Packs/Day Years Used Date Never Assessed Sex Assigned at Date Recorded Not on file as of this encounter Miscellaneous Notes * Telephone Encounter - Sarai Norman RN - 07/12/2017 2:30 PM CDT Navigation Intake Assessment Patient Name: Devendra Anderson : 1985 Insurance: Self Pay -must bring $150 Appointment Info: Dr. Elizabeth 07/19/17 0940 Diagnosis & Reason for Visit: Pelvic Mass w/ omental involvement Physician Info: ? Referring Physician: Carlie Sorto Contact Name & Number: [facility] ED PCP: Liliya Betancourt MD / Lisa Trimble APRN Location of Films: PACS History of Present Illness: 07/07/17 went to PCP for abdominal pain and muscle cramps. Given flexiril 10 and labs drawn. WI'ed home. 07/08/17 presented to [facility] ED in [place], [place] c/o increasing lumbar back pain x2 days. CT findings : mod-advanced ascites, diffuse stranding and subtle nodularity throughout omentum. Large partially cystic heterogenous mass centered in the pelvis, anterior to he uterus measuring at least 11.6 x 5.4 x 10.1cm. Well- circumscribed cyst in the region of the ovaries bilat measuring up to 3.9 on the right and 3.4cm on the left. Unclear if these are part of the mass. CA 125= 65.0 07/09/17 Survey Supervisor consult ordered. Recommended CT/ultrasound guided biopsy of mass or aspiration of the ascites. 07/10/17 patient was discharged and no biopsy was obtained. Referral to Survey Supervisor Onc made. PMH: BMI-46.16, Last Pap: 09/17/2015 negative for [...] period: N/A Hormone Replacement Therapy: No Years: in this encounter Plan of Treatment Not on fileas of this encounter Visit Diagnoses Not on filein this encounter
--- OUTSIDE RECORDS SUMMARY | 2017-08-06 11:45 | XMS REPORT | Encounter Summary ---
Author Author [facility] Organization [facility] Address Unknown Phone Unavailable Care Team Providers Care Logistician Name Role Phone PCP Unavailable Encounter Details Date Type Department Care Team Description 07/08/2017 Hospital [facility] Encounter Hospital Radiology [address] [place] [address] Social History Tobacco Use Types Packs/Day Years Used Date Never Assessed Sex Assigned at Date Recorded Not on file as of this encounter Medications at Time of Discharge Medication Sig. Disp. Refills Start Date End Date prednisone (DELTASONE) 20 TAKE TWO TABLETS BY MOUTH 0 05/24/2017 mg tablet ONCE DAILY FOR 5 DAYS ZITHROMAX Z-JORGE 250 mg TAKE TWO TABLETS BY MOUTH 0 05/31/20172016 tablet ON DAY 1 THEN TAKE ONE TABLET ON DAYS 2-5 as of this encounter Plan of Treatment Not on fileas of this encounter Results * CT ABD/PEL EXTERNAL IMAGING (07/08/2017) Narrative This order has been auto finalized and does not contain a result. in this encounter Visit Diagnoses Diagnosis Diagnosis unknown Other unknown and unspecified cause of morbidity or mortality in this encounter
--- OUTSIDE RECORDS SUMMARY | 2017-08-06 11:45 | XMS REPORT | Encounter Summary ---
Author Author [facility] Organization [facility] Address Unknown Phone Unavailable Care Team Providers Care Epic Ambulatory Specialists Name Role Phone PCP Unavailable Reason for Visit * Reason Comments Heme/Onc Care Encounter Details Date Type Department Care Team Description 07/21/2017 Telephone [facility] Wilma Elizabeth MD Heme /Onc Care [facility] [address] [place] [address] [place] [address] [phone] Social History Tobacco Use Types Packs/Day Years Used Date Passive Smoke Exposure - Never Smoker Smokeless Tobacco: Never Used Alcohol Use Drinks/Week oz/Week Comments No Sex Assigned at Date Recorded Not on file as of this encounter Miscellaneous Notes * Telephone Encounter - Alix Burks RN - 07/21/2017 4:16 PM WASTE DISPOSAL LEAKAGE TESTER Called pt regarding pre and post operative instructions. Education provided including surgery date/time, arrival time, location of surgery, NPO at [place] prior to surgery, CLD and bowel prep the day prior, antibiotic administration the day before, CHG shower the day prior and the AM of, post-operative restrictions, when to call MD at home, constipation prevention after surgery, Lovenox teaching , what to expect at hospital (SCDs, IS, activity, pain). Denies questions at this time. Faxed pre-op packet instructions and received confirmation of receipt by patient. Sent ABT and Zofran to local pharmacy. Pt has call back number for any further questions/concerns that may come up. in this encounter Plan of Treatment Not on fileas of this encounter Visit Diagnoses Not on filein this encounter
--- OUTSIDE RECORDS SUMMARY | 2017-08-06 11:45 | XMS REPORT | Encounter Summary ---
Author Author [facility] Organization [facility] Address Unknown Phone Unavailable Care Team Providers Care Optical Instruments Supervisor Name Role Phone PCP Unavailable Encounter Details Date Type Department Care Team Description 07/20/2017 Prep for Case XDD CALL CENTER SUPPORT REPRESENTATIVE Wilma Elizabeth MD [address] [place] [address] Social History Tobacco Use Types Packs/Day Years Used Date Passive Smoke Exposure - Never Smoker Smokeless Tobacco: Never Used Alcohol Use Drinks/Week oz/Week Comments No Sex Assigned at Date Recorded Not on file as of this encounter Plan of Treatment Not on fileas of this encounter Visit Diagnoses Not on filein this encounter
--- OUTSIDE RECORDS SUMMARY | 2017-08-06 11:45 | XMS REPORT | Encounter Summary ---
Author Author [facility] Organization [facility] Address Unknown Phone Unavailable Care Team Providers Care Preschool Teacher Aide Name Role Phone PCP Unavailable Encounter Details Date Type Department Care Team Description 07/15/2017 Ancillary Rad Outpatient, Radiologist Diagnosis unknown Orders [address] [place] [address] Social History Tobacco Use Types Packs/Day Years Used Date Never Assessed Sex Assigned at Date Recorded Not on file as of this encounter Plan of Treatment Not on fileas of this encounter Results * CT ABD/PEL EXTERNAL IMAGING (07/08/2017) Narrative This order has been auto finalized and does not contain a result. * CT ABD/PEL EXTERNAL IMAGING (03/12/2015) Narrative This order has been auto finalized and does not contain a result. in this encounter Visit Diagnoses Diagnosis Diagnosis unknown Other unknown and unspecified cause of morbidity or mortality in this encounter
--- OUTSIDE RECORDS SUMMARY | 2017-08-06 11:45 | XMS REPORT | Encounter Summary ---
Author Author [facility] Organization [facility] Address Unknown Phone Unavailable Care Team Providers Care Patient Account Analyst Name Role Phone PCP Unavailable Encounter Details Date Type Department Care Team Description 07/21/2017 Orders Only [facility] Exam [address] [place] [address] [place] [address] [phone] Social History Tobacco Use Types Packs/Day Years Used Date Passive Smoke Exposure - Never Smoker Smokeless Tobacco: Never Used Alcohol Use Drinks/Week oz/Week Comments No Sex Assigned at Date Recorded Not on file as of this encounter Plan of Treatment Not on fileas of this encounter Visit Diagnoses Not on filein this encounter
[2017-08-06] MEDS ORDERED: OXYC-197 PO (12:09)
[2017-08-06] MEDS ORDERED: morphine INJ 10 MG/ML 1ML (SYR OR VIAL) IM STA (12:22)
[2017-08-06] MEDS ORDERED: SULF1TAB35 PO (13:29)
--- NOTE | 2017-08-06 13:30 | ED General ---
General Chief Complaint: Skin/Wound Problems Stated Complaint: WOUND OOZING AND PULLING OPEN ON ABD,POSS INFECTIO Nursing Triage Note: PT STATES ABD WOUND COMING APART AND DRAINING, PT HAS SURG ON 07/25/17. PT STATES DRIANING Nursing Sepsis Screen: No Definite Risk Source of Information: Patient Exam Limitations: No Limitations History of Present Illness Time Seen by Provider: 12:05 Initial Comments 31-year-old female patient presents to the emergency department with complaints of her abdominal incision opening up and draining a small amount of fluid. Patient had exploratory laparotomy with oophorectomy on 07/25/17 at [facility]. Patient states she noticed the incision opening up a couple of days ago. Denies fever, redness, nausea, vomiting, shortness of air, dysuria, frequency, hematuria. Patient does have an appointment with her surgeon on Tuesday at . Timing/Duration: 1-2 Days Severity: Mild Allergies and Home Medications Allergies Coded Allergies: Iodinated Contrast- Oral and IV Dye (Verified Allergy, Unknown, 07/08/17) Home Medications Oxycodone HCl/Acetaminophen 1 Each Tablet, Unknown Dose PO, (Reported) Sulfamethoxazole/Trimethoprim 1 Each Tablet, 1 EACH PO BID, #14 Ref 0 Prescribed by: BISHOP STEVENS on 08/06/17 1329 Constitutional: No chills, No dizziness, No fever, No malaise EENTM: no symptoms reported Respiratory: No cough, No dyspnea on exertion, No short of breath Cardiovascular: No chest pain, No edema, No palpitations, No syncope Gastrointestinal: see HPI, abdominal pain (postoperative pain which is improving.), No constipation, No diarrhea, No nausea, No vomiting Genitourinary: No decreased output, No dysuria, No frequency, No hematuria, No pain Musculoskeletal: no symptoms reported Skin: see HPI Psychiatric/Neurological: No Symptoms Reported All Other Systems Reviewed Negative Unless Noted: Yes (Negative excepted noted.) Past Qztfqlc-Sqmebo-Uzaqkf Hx Patient Social History Alcohol Use: Denies Use Recreational Drug Use: No Smoking Status: Never a Smoker 2nd Hand Smoke Exposure: No Recent Foreign Travel: No Contact w/Someone Who Travel: No Recent Infectious Disease Expo: No Recent Hopitalizations: Yes (EXPL LAP ON 07/25/17) Physical Abuse: No Sexual Abuse: No Immunizations Up To Date Tetanus Booster (TDap): Unknown Date of Influenza Vaccine: Jun 28, 2017 Seasonal Allergies Seasonal Allergies: Yes Surgeries History of Surgeries: Yes (T & A 2001 WISDOM TEETH 2010) Surgeries: Oophorectomy Respiratory History of Respiratory Disorde: No Cardiovascular History of Cardiac Disorders: No Neurological History of Neurological Disord: No Reproductive System Hx Reproductive Disorders: No Female Reproductive Disorders: Denies Genitourinary History of Genitourinary Disor: Yes Genitourinary Disorders: Kidney Stones Gastrointestinal History of Gastrointestinal Di: No Musculoskeletal History of Musculoskeletal Dis: No Endocrine History of Endocrine Disorders: No HEENT History of HEENT Disorders: No Cancer History of Cancer: No Psychosocial History of Psychiatric Problem: No Suicide Risk Score: 0 Integumentary History of Skin or Integumenta: No Blood Transfusions History of Blood Disorders: No Reviewed Nursing Assessment Reviewed/Agree w Nursing PMH: Yes Family Medical History Significant Family History: No Pertinent Family Hx Family Medial History: Diabetes mellitus 19 FATHER Guillain-[place] syndrome 19 MOTHER Physical Exam Vital Signs Vital Sign - Last 12Hours 08/06/17 11:50 Temp 97.2 Pulse 67 Resp 18 B/P (MAP) 130/66 Pulse Ox 96 Capillary Refill : Less Than 3 Seconds General Appearance: No Apparent Distress, WD/WN HEENT: PERRL/EOMI, Pharynx Normal Neck: Normal Inspection, Supple Respiratory: Lungs Clear, Normal Breath Sounds, No Accessory Muscle Use, No Respiratory Distress Cardiovascular: Regular Rate, Rhythm, No Edema, No Murmur, Normal Peripheral Pulses Gastrointestinal: Normal Bowel Sounds, No Organomegaly, Soft, No Distended, No Guarding, No Rebound, Tenderness (tenderness along the midline incision and noted over the areas of ecchymosis on the abdominal wall. 2 small areas of wound dehiscence noted just inferior and medial to the umbilicus with a small amount of serous sanguinous drainage. Small area of eschar noted on the superior wound. Granulation noted on the inferior wound. No purulent drainage noted. There is a moderate amount of ecchymosis with a erythematous/purplish appearance. This is most likely related to postoperative bruising. Has been reports this looks the same as it has since having surgery. Denies any increasing erythema.) Back: Normal Inspection Extremity: Normal Capillary Refill, No Pedal Edema Neurologic/Psychiatric: Alert, Oriented x3, Normal Mood/Affect Skin: Normal Color, Warm/Dry, Ecchymosis (mild to moderate tenderness along the midline incision and noted over the areas of ecchymosis on the abdominal wall. 2 small areas of wound dehiscence noted just inferior and medial to the umbilicus with a small amount of serous sanguinous drainage. Small area of eschar noted on the superior wound. Granulation noted on the inferior wound. No purulent drainage noted. There is a moderate amount of ecchymosis with a erythematous/purplish appearance. This is most likely related to postoperative bruising. Has been reports this looks the same as it has since having surgery. Denies any increasing erythema.) Progress/Results/Core Measures Suspected Sepsis Recent Fever Within 48 Hours: No Infection Criteria Present: None New/Unexplained Altered Menta: No Sepsis Screen: No Definite Risk Sepsis Diagnosis: SIRS Temperature:97.2 Pulse: 67 Respiratory Rate: 18 Blood Pressure 130 /66 Mean: 87 Results/Orders My Orders Orders - BISHOP STEVENS Morphine Injection (Morphine Injection (08/06/17 12:22) Vital Signs/I&O Vital Sign - Last 12Hours 08/06/17 08/06/17 11:50 13:56 Temp 97.2 97.2 Pulse 67 67 Resp 18 18 B/P (MAP) 130/66 Pulse Ox 96 96 Capillary Refill : Less Than 3 Seconds Blood Pressure Mean: 87 Departure Communication (Admissions) Progress Notes Patient reports nose swelling and sneezing with iodine contrast dye, but denies allergy to topical iodine and states she has used it frequently in the past without difficulty. Abdominal wound dressed with one quarter-inch plain gauze packing, 4 x 4 gauze, and tape. Patient is noted to have an erythematous/ purplish hue to the mid abdomen surrounding the incision. This is most likely due to postoperative ecchymosis; however, will place patient on a prophylactic round of Bactrim DS for the erythema noted. Patient to follow up on Tuesday with her surgeon as previously scheduled. All return precautions were discussed with the patient. Patient verbalizes understanding and agrees with the treatment plan. Impression Impression: Primary Impression: Wound dehiscence, surgical Qualified Codes: T81.31XA - Disruption of external operation (surgical) wound , not elsewhere classified, initial encounter Disposition: HOME, SELF-CARE Condition: Improved Departure-Patient Inst. Decision time for Depature: 13:29 Referrals: [facility] (PCP/Family) Primary Care Physician Patient Instructions: Wound Care (DC) Add. Discharge Instructions: All discharge instructions reviewed with patient and/or family. Voiced understanding. Medications as instructed. Continue usual home medications. Shower with antibacterial soap. Pat dry. Place a small piece of gauze packing in the wound bed and cover with 4 x 4 gauze and tape. Abdominal binder as instructed. Follow-up with your surgeon Tuesday as previously scheduled at [facility]. Return to the emergency department immediately for worsened pain, redness, fever, drainage, or any other concerns. Scripts Sulfamethoxazole/Trimethoprim (Bactrim Ds Tablet) 1 Each Tablet 1 EACH PO BID, #14 TAB 0 Refills Prov: BISHOP STEVENS 08/06/17 BISHOP STEVENS Aug 06, 2017 13:30
[2017-08-06 13:56] VITALS: BP 130/66
== END 2017-08-06 13:56 | disposition home or self-care (01) ==
LOC: EDUNIT# 11:33 → ER 11:35
DX: T81.31XA Disruption of external operation (surgical) wound, not elsewhere classified, initial encounter (principal); Z87.442 Personal history of urinary calculi
CPT/HCPCS: 99284

== ENCOUNTER 2018-02-23 20:22 | Observation (INO) | payer OTHER ==
[~2018-02-23] VITALS: Ht 167.6 cm; Wt 159.8 kg
[~2018-02-23 20:22] MED LIST changes: +HYDR-34 PO; -HYDR-3816 PO; +OXYC-197 PO; +SULF1TAB35 PO
--- OUTSIDE RECORDS SUMMARY | 2018-02-23 21:10 | XMS REPORT ---
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 19794802 ALLERGIES Substance Reaction Event Type Date Status Tuberculin PPD Unknown Drug Allergy May, Active Seasonal Unknown Non Drug Allergy May, Active ENCOUNTERS Encounter Location Date Diagnosis [place] [id number] [address] Jun, [facility] [address] [place] [address] Jun, [facility] [address] [address] Jun, Abdominal pain R10.9 and Muscle cramps R25.2 [facility] [address] [place] [address] May, Bronchitis J40 and Acute nasopharyngitis J00 [facility] [address] [place] [address] May, Acute nasopharyngitis (common cold) J00 ; Sore throat J02.9 and Allergic contact dermatitis due to plants, except food L23.7 [facility] [address] [address] Dec, Sinusitis J32.9 [facility] [address] [place] [address] Sep, Pelvic pain R10.2 ; Vaginal discharge N89.8 ; Screening for malignant neoplasm of cervix Z12.4 ; Abdominal cramping R10.9 ; Uterine tenderness N94.9 ; Encounter for counseling regarding contraception Z30.9 ; Upper abdominal pain R10.10 and Surveillance of implantable subdermal contraceptive Z30.49 [facility] [address] [facility] [id number] [place] [address] May, 2015 Reaction to tuberculin skin test 795.51 IMMUNIZATIONS No Known Immunizations SOCIAL HISTORY Never Assessed REASON FOR VISIT Sore throat, Strep came back negative and PT has a cough that seems to be settleing in her chest with green mucus and SOB, ear pressure, symptoms for a 10 days-Marilyn AHUJA PLAN OF CARE Activity Details Follow Up prn Reason: VITAL SIGNS Height 69 in 2017-05-31 Weight 309.1 lbs 2017-05-31 Temperature 98.3 degrees Fahrenheit 2017-05-31 Heart Rate 86 bpm 2017-05-31 Respiratory Rate 20 2017-05-31 BMI 45.64 kg/m2 2017-05-31 Blood pressure systolic 132 mmHg 2017-05-31 Blood pressure diastolic 84 mmHg 2017-05-31 MEDICATIONS Medication Instructions Dosage Frequency Start Date End Date Duration Status SudoGest 60 mg Orally every 6 hrs 1 tablet as needed 6h May, 0 days Active Zithromax Z-Ray 250 MG Orally Once a day 2 tablets on the first day, then 1 tablet daily for 4 days 24h May, May, 5 day(s) Active RESULTS No Results PROCEDURES No Known procedures INSTRUCTIONS MEDICATIONS ADMINISTERED No Known Medications MEDICAL (GENERAL) HISTORY Type Description Date Surgical History tonsillectomy and adenoidectomy Surgical History dental surgery 2011 Hospitalization History Surgery(s)/Childbirth(s) only
--- OUTSIDE RECORDS SUMMARY | 2018-02-23 21:10 | XMS REPORT ---
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 [id number] ALLERGIES No Information ENCOUNTERS Encounter Location Date Diagnosis [facility] [address] [address] Jun, [facility] [address] [address] Jun, [address] [address] Jun, Abdominal pain R10.9 and Muscle cramps R25.2 [facility] [address] [address] May, Bronchitis J40 and Acute nasopharyngitis J00 [address] [address] May, Acute nasopharyngitis (common cold) J00 ; Sore throat J02.9 and Allergic contact dermatitis due to plants, except food L23.7 [facility] [address] [place] [id number] [place] [address] Dec, Sinusitis J32.9 [facility] [address] [address] Sep, Pelvic pain R10.2 ; Vaginal discharge N89.8 ; Screening for malignant neoplasm of cervix Z12.4 ; Abdominal cramping R10.9 ; Uterine tenderness N94.9 ; Encounter for counseling regarding contraception Z30.9 ; Upper abdominal pain R10.10 and Surveillance of implantable subdermal contraceptive Z30.49 [facility] [address] [facility] [id number] [place] [address] May, 2015 Reaction to tuberculin skin test 795.51 IMMUNIZATIONS No Known Immunizations SOCIAL HISTORY Never Assessed REASON FOR VISIT Requests return call PLAN OF CARE VITAL SIGNS MEDICATIONS Unknown Medications RESULTS No Results PROCEDURES No Known procedures INSTRUCTIONS MEDICATIONS ADMINISTERED No Known Medications MEDICAL (GENERAL) HISTORY Type Description Date Surgical History tonsillectomy and adenoidectomy Surgical History dental surgery 2011 Hospitalization History Surgery(s)/Childbirth(s) only
--- OUTSIDE RECORDS SUMMARY | 2018-02-23 21:10 | XMS REPORT | Clinical Summary ---
Author Author [facility] Organization [facility] Address Unknown Phone Unavailable Care Team Providers Care Talent Development Specialist Name Role Phone Carlie Sorto MD PCP Source Comments Some departments are not documenting in the electronic medical record. If you do not see the information that you expected, contact Release of Information in the Health Information Management department at [phone] for further assistance in locating additional records.[facility] Allergies No Known Allergies Current Medications Prescription Sig. Disp. Refills Start End Date Status Date oxyCODONE (ROXICODONE, Take 1-3 tablets by mouth 30 tablet 0 09/06/20 Active OXY-IR) 5 mg every 4 hours as needed 17 tabletIndications: Postoperative pain Active Problems Problem Noted Date Wound disruption 08/23/2017 Struma ovarii of right ovary 08/03/2017 Overview: Referring Physician: Referring Physician: Carlie Sorto Contact Name &Number: [facility] ED PCP: Liliya Betancourt MD / Lisa Trimble APRN Primary Care Physician: Carlie Sorto CC:pelvic mass, carcinomatosis History of Present Illness: Devendra Anderson is a 31 y.o. female 07/07/17 went to PCP for abdominal pain and muscle cramps. Given flexiril 10 and labs drawn. DC'ed home. 07/08/17 presented to [facility] ED in [place], [place] c/o increasing lumbar back pain x2 [...] these are part of the mass. CA 125=65. S/P Ex Lap/RSO/L ovarian cystectomy 07/25/[address] HONG. Pathology with R ovary, struma ovarii. Arrives 08/08/17 for 2 week postoperative visit. States she went to [place] ED Tuesday08/06/17 for concern over wound separation and increased mucous drainage. Cough on Tuesday and Tuesday AM it opened a bit more. Denies fever or bleeding. Erythema surrounding incision since surgery. Increased pain and relieved with Oxycodone. ED denies infection. Wound care has included washing around incision with hibiclens and inserting packing strip. On exam, wound has superficial separation. To the R of the umbilicus is a slightly deeper defect measuring approx. .5 cm with qtip. Did not come in contact with fascia. Superior opening is 7 cm and inferior opening is measuring 6 cm. Tissue is healthy, granulation tissue without pus exudate or odor. Mild erythema surrounding incision. Wound debridement performed, inserted 1/4 in packing tape to the R of the umbilicus, saline 4 x 4s applied to wound and covered with dry abdominal dressing. Educated on wound care to be performed BID. Continue showering with hibiclens wash around incision. Call with odor, increased redness or increased exudate. Last Assessment & Plan: Devendra Anderson is a 31 y.o. female s/p Ex Lap/RSO/L ovarian cystectomy 07/25/[address] HONG. Arrives for 2 week postoperative visit and complaint of wound separation. Exam demonstrates superficial separation of incision without exudate, odor or redness. Superior separation measures approx 7 cm in length and inferior separation measures approx. 6 cm in length. Just to the R of umbilicus is a 0.5 cm defect. at bedside and educated on wound care. Recommend 1/4 in packing gauze to defect R of umbilicus. Wet to dry dressings to superficial separations and change BID-TID. Hygeine consists of washing around wound with Hibiclens or antibacterial soap. Abdominal binder. Aware to call with fever, discharge/pus, odor or increased erythema. RV [address] HONG for evaluation. Resolved Problems Problem Noted Date Resolved Date Ovarian mass, right 07/25/2017 08/03/2017 Malignant ascites 07/19/2017 08/03/2017 Carcinomatosis (HCC) 07/19/2017 08/03/2017 Pelvic mass in female 07/19/2017 08/03/2017 Family History Medical History Relation Name Comments [...] Vital Sign Reading Time Taken Blood Pressure 155/69 11/07/2017 3:56 PM [employer] Pulse 59 11/07/2017 3:56 PM [employer] Temperature 36.4 C (97.6 F) 11/07/2017 3:56 PM [employer] Respiratory Rate 16 11/07/2017 3:56 PM [employer] Oxygen Saturation 100% 11/07/2017 3:56 PM [employer] Inhaled Oxygen - - Concentration Weight 144.2 kg (318 lb) 11/07/2017 3:56 PM [employer] Height 167.6 cm (5' 6") 11/07/2017 3:56 PM [employer] Body Mass Index 51.33 11/07/2017 3:56 PM [employer] Plan of Treatment Health Maintenance Due Date Last Done Comments PHYSICAL (COMPREHENSIVE) 12/01/1991 EXAM PERTUSSIS VACCINE 12/01/1995 HIV SCREENING 12/01/1999 TETANUS VACCINE 2001 CERVICAL CANCER SCREENING 2014 INFLUENZA VACCINE 06/12/2018 Results Not on filefrom Last 3 Months
--- OUTSIDE RECORDS SUMMARY | 2018-02-23 21:10 | XMS REPORT ---
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 42580836 ALLERGIES Substance Reaction Event Type Date Status Tuberculin PPD Unknown Drug Allergy May, Active Seasonal Unknown Non Drug Allergy May, Active ENCOUNTERS Encounter Location Date Diagnosis [place] [address] [address] Jun, [facility] [address] [address] Jun, [facility] [place] [address] [address] Jun, Abdominal pain R10.9 and Muscle cramps R25.2 [place] [address] [address] May, Bronchitis J40 and Acute nasopharyngitis J00 [facility] [address] [address] May, Acute nasopharyngitis (common cold) J00 ; Sore throat J02.9 and Allergic contact dermatitis due to plants, except food L23.7 [facility] [address] [address] Dec, Sinusitis J32.9 [place] [address] [address] Sep, Pelvic pain R10.2 ; Vaginal discharge N89.8 ; Screening for malignant neoplasm of cervix Z12.4 ; Abdominal cramping R10.9 ; Uterine tenderness N94.9 ; Encounter for counseling regarding contraception Z30.9 ; Upper abdominal pain R10.10 and Surveillance of implantable subdermal contraceptive Z30.49 [facility] [address] [facility] [id number] [place] [address] May, 2015 Reaction to tuberculin skin test 795.51 IMMUNIZATIONS No Known Immunizations SOCIAL HISTORY Never Assessed REASON FOR VISIT congestion, throat pain, drainage, cough all with clear mucus, sumptoms started sat- Gorham MA, PT's has posion camille and PT does have a rash on her chest and neck PLAN OF CARE Activity Details Follow Up prn Reason: VITAL SIGNS Height 69 in 2017-05-24 Weight 308.8 lbs 2017-05-24 Temperature 98.7 degrees Fahrenheit 2017-05-24 Heart Rate 78 bpm 2017-05-24 Respiratory Rate 20 2017-05-24 BMI 45.60 kg/m2 2017-05-24 Blood pressure systolic 136 mmHg 2017-05-24 Blood pressure diastolic 94 mmHg 2017-05-24 MEDICATIONS Medication Instructions Dosage Frequency Start Date End Date Duration Status PredniSONE 20 MG Orally Once a day 2 tablet 24h May, May, 5 days Active RESULTS Name Result Date Reference Range STREP A (IN HOUSE) STREP A Neg Control Lot # Exp date PROCEDURES Procedure Date Ordered Result Body Site STREP A ASSAY W/OPTIC May 24, 2017 INSTRUCTIONS MEDICATIONS ADMINISTERED No Known Medications MEDICAL (GENERAL) HISTORY Type Description Date Surgical History tonsillectomy and adenoidectomy Surgical History dental surgery 2011 Hospitalization History Surgery(s)/Childbirth(s) only
--- OUTSIDE RECORDS SUMMARY | 2018-02-23 21:11 | XMS REPORT | Continuity of Care Document ---
Author Author [facility] Organization [facility] Address Unknown Phone Unavailable Allergies Active Description Code Type Severity Reaction Onset Reported/Identified Relationship to Patient Clinical Status Yes Iodinated Contrast- Oral and IV Dye [id number] Drug Allergy Unknown N/A Yes No Known Drug Allergies [id number] Drug Allergy Unknown N/A 07/08/2017 Medications There is no data. 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 06/17/2013 JALEN DUNCAN MD Ot 522.5 PERIAPICAL ABSCESS 06/17/2013 JALEN DUNCAN MD Ot 682.0 CELLULITIS OF FACE 06/17/2013 JALEN DUNCAN MD Ot 682.1 CELLULITIS OF NECK 06/17/2013 JALEN DUNCAN MD Ot V85.42 BODY MASS INDEX 45.0-49.9, ADULT 03/12/2015 ALY OPNCE MD Ot 592.1 CALCULUS OF URETER 03/12/2015 ALY PONCE MD Ot 625.8 FEM GENITAL SYMPTOMS NEC 03/12/2015 ALY PONCE MD Ot 789.09 ABDOMINAL PAIN, OTHER SPECIFIED SITE 06/05/2015 DAPHNEY CORDOVA UTILITY ACCOUNTS DIRECTOR Ot 795.51 02/15/2016 DAPHNEY CORDOVA UTILITY ACCOUNTS DIRECTOR Ot 795.51 NONSP RX TO TUBERCULIN SKIN TEST W/O ACT 10/01/2016 DAPHNEY CORDOVA UTILITY ACCOUNTS DIRECTOR Ot 795.51 NONSP RX TO TUBERCULIN SKIN TEST W/O ACT 07/08/2017 DAPHNEY CORDOVA UTILITY ACCOUNTS DIRECTOR Ot 795.51 NONSP RX TO TUBERCULIN SKIN TEST W/O ACT 07/08/2017 Ot 795.51 NONSP RX TO TUBERCULIN SKIN TEST W/O ACT 07/10/2017 PEDRO LUIS VALLES, KIT Dewitt Ot E66.9 OBESITY, UNSPECIFIED 07/10/2017 PEDRO LUIS VALLES, KIT Dewitt Ot R10.84 GENERALIZED ABDOMINAL PAIN 07/10/2017 KIT CLOUD MD Ot R18.8 OTHER ASCITES 07/10/2017 KIT CLOUD MD Ot Z68.43 BODY MASS INDEX (BMI) 50-59.9 , ADULT 07/10/2017 KIT CLOUD MD Ot Z87.442 PERSONAL HISTORY OF URINARY CALCULI 08/06/2017 Ot 795.51 NONSP RX TO TUBERCULIN SKIN TEST W/O ACT 08/06/2017 Ot 795.51 NONSP RX TO TUBERCULIN SKIN TEST W/O ACT Procedures Code Description Performed By Performed On 73.01 INDUCT LABOR-RUPT MEMB 05/10/2012 73.4 MEDICAL INDUCTION LABOR 05/10/2012 73.6 EPISIOTOMY 05/10/2012 23.19 SURG TOOTH EXTRACT NEC 06/15/2013 27.0 DRAIN FACE MOUTH FLOOR 06/15/2013 Results Test Result Range CBC - 07/07/17 12:08 WBC 14.0 x10E3/uL 3.4-10.8 RBC 4.54 x10E6/uL 3.77-5.28 Hemoglobin 13.4 g/dL 11.1-15.9 Hematocrit 39.6 % 34.0-46.6 MCV 87 fL 79-97 MCH 29.5 pg 26.6-33.0 MCHC 33.8 g/dL 31.5-35.7 RDW 13.5 % 12.3-15.4 Platelets 334 x10E3/uL 150-379 Neutrophils 68 % Not Estab. Lymphs 22 % Not Estab. Monocytes 4 % Not Estab. Eos 6 % Not Estab. Basos 0 % Not Estab. Neutrophils (Absolute) 9.5 x10E3/uL 1.4-7.0 Lymphs (Absolute) 3.1 x10E3/uL 0.7-3.1 Monocytes(Absolute) 0.6 x10E3/uL 0.1-0.9 Eos (Absolute) 0.8 x10E3/uL 0.0-0.4 Baso (Absolute) 0.0 x10E3/uL 0.0-0.2 Immature Granulocytes 0 % Not Estab. Immature Grans (Abs) 0.0 x10E3/uL 0.0-0.1 CBC With Differential/Platelet - 07/07/17 12:08 WBC 14.0 x10E3/uL 3.4-10.8 RBC 4.54 x10E6/uL 3.77-5.28 Hemoglobin 13.4 g/dL 11.1-15.9 Hematocrit 39.6 % 34.0-46.6 MCV 87 fL 79-97 MCH 29.5 pg 26.6-33.0 MCHC 33.8 g/dL 31.5-35.7 RDW 13.5 % 12.3-15.4 Platelets 334 x10E3/uL 150-379 Neutrophils 68 % Not Estab. Lymphs 22 % Not Estab. Monocytes 4 % Not Estab. Eos 6 % Not Estab. Basos 0 % Not Estab. Neutrophils (Absolute) 9.5 x10E3/uL 1.4-7.0 Lymphs (Absolute) 3.1 x10E3/uL 0.7-3.1 Monocytes(Absolute) 0.6 x10E3/uL 0.1-0.9 Eos (Absolute) 0.8 x10E3/uL 0.0-0.4 Baso (Absolute) 0.0 x10E3/uL 0.0-0.2 Immature Granulocytes 0 % Not Estab. Immature Grans (Abs) 0.0 x10E3/uL 0.0-0.1 Comp. Metabolic Panel (14) - 07/07/17 12:08 Glucose, Serum 98 mg/dL 65-99 BUN 16 mg/dL 6-20 Creatinine, Serum 0.71 mg/dL 0.57-1.00 eGFR If NonAfricn Am 113 mL/min/1.73 >59 eGFR If Africn Am 130 mL/min/1.73 >59 BUN/Creatinine Ratio 23 9-23 Sodium, Serum 141 mmol/L 134-144 Potassium, Serum 4.1 mmol/L 3.5-5.2 Chloride, Serum 102 mmol/L 96-106 Carbon Dioxide, Total 27 mmol/L 18-29 Calcium, Serum 9.7 mg/dL 8.7-10.2 Protein, Total, Serum 7.4 g/dL 6.0-8.5 Albumin, Serum 4.6 g/dL 3.5-5.5 Globulin, Total 2.8 g/dL 1.5-4.5 A/G Ratio 1.6 1.2-2.2 Bilirubin, Total 0.6 mg/dL 0.0-1.2 Alkaline Phosphatase, S 89 IU/L 39-117 AST (SGOT) 16 IU/L 0-40 ALT (SGPT) 19 IU/L 0-32 Complete urinalysis with reflex to culture - 07/08/17 15:17 Urine color determination KILEY NRG Urine clarity determination SLIGHTLY CLOUDY NRG Urine pH measurement by test strip 6 5-9 Specific gravity of urine by test strip 1.020 1.016- 1.022 Urine protein assay by test strip, semi-quantitative 2+ NEGATIVE Urine glucose detection by automated test strip NEGATIVE NEGATIVE Erythrocytes detection in urine sediment by light microscopy 3+ NEGATIVE Urine ketones detection by automated test strip NEGATIVE NEGATIVE Urine nitrite detection by test strip NEGATIVE NEGATIVE Urine total bilirubin detection by test strip 1+ NEGATIVE Urine urobilinogen measurement by automated test strip (mass/volume) 4 mg/dL NORMAL Urine leukocyte esterase detection by dipstick 2+ NEGATIVE Automated urine sediment erythrocyte count by microscopy (number/high power field) [HPF] NRG Automated urine sediment leukocyte count by microscopy (number/high power field ) [HPF] NRG Bacteria detection in urine sediment by light microscopy MODERATE NRG Squamous epithelial cells detection in urine sediment by light microscopy >50 NRG Crystals detection in urine sediment by light microscopy NONE NRG Casts detection in urine sediment by light microscopy NONE NRG Mucus detection in urine sediment by light microscopy NEGATIVE NRG Complete urinalysis with reflex to culture YES NRG Bacterial urine culture - 07/08/17 15:17 Bacterial urine culture [id number] NRG COLONY COUNT <10,000 NRG URINE CULTURE RESULTS PLUS NRG Complete blood count (CBC) with automated white blood cell (WBC) differential - 07/08/17 15:22 Blood leukocytes automated count (number/volume) 11.7 10*3/uL 4.3-11.0 Blood erythrocytes automated count (number/volume) 4.39 10*6/uL 4.35-5.85 Venous blood hemoglobin measurement (mass/volume) 13.1 g/dL 11.5-16.0 Blood hematocrit (volume fraction) 38 % 35-52 Automated erythrocyte mean corpuscular volume 87 [foz_us] 80-99 Automated erythrocyte mean corpuscular hemoglobin (mass per erythrocyte) 30 pg 25-34 Automated erythrocyte mean corpuscular hemoglobin concentration measurement ( mass/volume) 34 g/dL 32-36 Automated erythrocyte distribution width ratio 13.1 % 10.0-14.5 Automated blood platelet count (count/volume) 277 10*3/uL 130-400 Automated blood platelet mean volume measurement 9.9 [foz_us] 7.4-10.4 Automated blood neutrophils/100 leukocytes 66 % 42-75 Automated blood lymphocytes/100 leukocytes 19 % 12-44 Blood monocytes/100 leukocytes 5 % 0-12 Automated blood eosinophils/100 leukocytes 9 % 0-10 Automated blood basophils/100 leukocytes 0 % 0-10 Blood neutrophils automated count (number/volume) 7.7 10*3 1.8-7.8 Blood lymphocytes automated count (number/volume) 2.3 10*3 1.0-4.0 Blood monocytes automated count (number/volume) 0.6 10*3 0.0-1.0 Automated eosinophil count 1.0 10*3/uL 0.0-0.3 Automated blood basophil count (count/volume) 0.0 10*3/uL 0.0-0.1 Urine beta human chorionic gonadotropin (hCG) measurement - 07/08/17 15:22 Urine beta human chorionic gonadotropin (hCG) measurement NEGATIVE NEGATIVE Comprehensive metabolic panel - 07/08/17 15:22 Serum or plasma sodium measurement (moles/volume) 138 mmol/L 135-145 Serum or plasma potassium measurement (moles/volume) 3.6 mmol/L 3.6-5.0 Serum or plasma chloride measurement (moles/volume) 103 mmol/L 98-107 Carbon dioxide 26 mmol/L 21-32 Serum or plasma anion gap determination (moles/volume) 9 mmol/L 5-14 Serum or plasma urea nitrogen measurement (mass/volume) 11 mg/dL 7-18 Serum or plasma creatinine measurement (mass/volume) 0.75 mg/dL 0.60-1.30 Serum or plasma urea nitrogen/creatinine mass ratio 15 NRG Serum or plasma creatinine measurement with calculation of estimated glomerular filtration rate > NRG Serum or plasma glucose measurement (mass/volume) 86 mg/dL 70-105 Serum or plasma calcium measurement (mass/volume) 9.0 mg/dL 8.5-10.1 Serum or plasma total bilirubin measurement (mass/volume) 1.4 mg/dL 0.1-1.0 Serum or plasma alkaline phosphatase measurement (enzymatic activity/volume) 95 U/L 40-136 Serum or plasma aspartate aminotransferase measurement (enzymatic activity/ volume) 41 U/L 5-34 Serum or plasma alanine aminotransferase measurement (enzymatic activity/volume ) 53 U/L 0-55 Serum or plasma protein measurement (mass/volume) 7.8 g/dL 6.4-8.2 Serum or plasma albumin measurement (mass/volume) 4.3 g/dL 3.2-4.5 CA 125 - 07/08/17 15:22 CA 125 C 65.0 u[iU]/mL 2.0-30.0 Comprehensive metabolic panel - 07/09/17 06:25 Serum or plasma sodium measurement (moles/volume) 138 mmol/L 135-145 Serum or plasma potassium measurement (moles/volume) 3.5 mmol/L 3.6-5.0 Serum or plasma chloride measurement (moles/volume) 106 mmol/L 98-107 Carbon dioxide 24 mmol/L 21-32 Serum or plasma anion gap determination (moles/volume) 8 mmol/L 5-14 Serum or plasma urea nitrogen measurement (mass/volume) 9 mg/dL 7-18 Serum or plasma creatinine measurement (mass/volume) 0.67 mg/dL 0.60-1.30 Serum or plasma urea nitrogen/creatinine mass ratio 13 NRG Serum or plasma creatinine measurement with calculation of estimated glomerular filtration rate > NRG Serum or plasma glucose measurement (mass/volume) 94 mg/dL 70-105 Serum or plasma calcium measurement (mass/volume) 8.7 mg/dL 8.5-10.1 Serum or plasma total bilirubin measurement (mass/volume) 0.9 mg/dL 0.1-1.0 Serum or plasma alkaline phosphatase measurement (enzymatic activity/volume) 83 U/L 40-136 Serum or plasma aspartate aminotransferase measurement (enzymatic activity/ volume) 30 U/L 5-34 Serum or plasma alanine aminotransferase measurement (enzymatic activity/volume ) 47 U/L 0-55 Serum or plasma protein measurement (mass/volume) 6.7 g/dL 6.4-8.2 Serum or plasma albumin measurement (mass/volume) 3.6 g/dL 3.2-4.5 Complete blood count (CBC) with automated white blood cell (WBC) differential - 07/09/17 06:25 Blood leukocytes automated count (number/volume) 9.1 10*3/uL 4.3-11.0 Blood erythrocytes automated count (number/volume) 3.95 10*6/uL 4.35-5.85 Venous blood hemoglobin measurement (mass/volume) 11.8 g/dL 11.5-16.0 Blood hematocrit (volume fraction) 35 % 35-52 Automated erythrocyte mean corpuscular volume 88 [foz_us] 80-99 Automated erythrocyte mean corpuscular hemoglobin (mass per erythrocyte) 30 pg 25-34 Automated erythrocyte mean corpuscular hemoglobin concentration measurement ( mass/volume) 34 g/dL 32-36 Automated erythrocyte distribution width ratio 13.1 % 10.0-14.5 Automated blood platelet count (count/volume) 262 10*3/uL 130-400 Automated blood platelet mean volume measurement 10.0 [foz_us] 7.4-10.4 Automated blood neutrophils/100 leukocytes 58 % 42-75 Automated blood lymphocytes/100 leukocytes 22 % 12-44 Blood monocytes/100 leukocytes 7 % 0-12 Automated blood eosinophils/100 leukocytes 13 % 0-10 Automated blood basophils/100 leukocytes 0 % 0-10 Blood neutrophils automated count (number/volume) 5.3 10*3 1.8-7.8 Blood lymphocytes automated count (number/volume) 2.0 10*3 1.0-4.0 Blood monocytes automated count (number/volume) 0.6 10*3 0.0-1.0 Automated eosinophil count 1.2 10*3/uL 0.0-0.3 Automated blood basophil count (count/volume) 0.0 10*3/uL 0.0-0.1 Blood manual differential performed detection - 10/28/17 06:25 Blood monocytes/100 leukocytes 5 % NRG Manual blood segmented neutrophils/100 leukocytes 60 % NRG Blood band neutrophils/100 leukocytes 0 % NRG Manual blood lymphocytes/100 leukocytes 22 % NRG Manual eosinophils/100 leukocytes in nose 13 % NRG Manual blood basophils/100 leukocytes 0 % NRG Blood erythrocyte morphology finding identification NORMAL NRG Encounters ACCT No. Visit Date/Time Discharge Status Pt. Type Provider Facility Loc./Unit Complaint [id number] 08/06/2017 11:35:00 08/06/2017 13:56:00 DIS Emergency BISHOP RODRIGUEZ [facility] ER WOUND OOZING AND PULLING OPEN ON ABD,POSS INFECTIO [id number] 07/08/2017 16:49:00 07/10/2017 13:20:00 DIS Inpatient PEDRO LUIS VALLES, KIT Dewitt [facility] 4TH ABD PAIN,PELVIC MASS W PLEURAL [id number] 05/21/2015 12:50:00 05/21/2015 23:59:59 CLS Outpatient DAPHNEY CORDOVA UTILITY ACCOUNTS DIRECTOR [facility] RAD REACTION TO TB SKIN TEST [id number] 03/12/2015 07:21:00 03/12/2015 09:51:00 DIS Emergency KRIS VALLES, ALY Linda [facility] ER FLANK PAIN;VOMITING; DEHYDRATION [id number] 06/14/2013 17:15:00 06/17/2013 09:47:00 DIS Inpatient JALEN DUNCAN MD [facility] SURGICAL FACIAL CELLULITIS, INTRACTABLE FACIAL PAIN [id number] 11/10/2012 14:29:00 Document Registration [id number] 05/10/2012 06:33:00 Document Registration [id number] 05/05/2012 09:21:00 Document Registration [id number] 04/25/2012 20:14:00 Document Registration [id number] 07/07/2017 11:45:00 07/07/2017 23:59:59 CLS Outpatient ENOCL DAPHNEY CORDON [facility] [id number] 07/07/2017 11:45:00 Document Registration [id number] 07/08/2017 08:41:00 Document Registration
[2018-02-23 21:57] LABS: BILIRUBIN,URINE NEGATIVE (NEGATIVE); CLARITY,URINE CLEAR; COLOR,URINE YELLOW; GLUCOSE, URINE (UA) NEGATIVE (NEGATIVE); KETONES,URINE NEGATIVE (NEGATIVE); LEUKOCYTE ESTERASE ,URINE 1+ (NEGATIVE); NITRITE,URINE NEGATIVE (NEGATIVE); PH,URINE 6 (5-9); PROTEIN,URINE NEGATIVE (NEGATIVE); UROBILINOGEN,URINE NORMAL (NORMAL)
[2018-02-23 22:06] LABS: BACTERIA,URINE TRACE /HPF
[2018-02-23] MEDS ORDERED: ACETAMINOPHEN 325 MG TABLET/CAPLET (TYLENOL) PO STA (22:20)
[2018-02-23 22:39] LABS: BASOPHILS % (AUTO) 0 % (0-10); EOSINOPHILS # (AUTO) 0.3 10^3/uL (0.0-0.3); EOSINOPHILS % (AUTO) 2 % (0-10); HEMATOCRIT 37 % (35-52); LYMPHOCYTES # (AUTO) 1.9 X 10^3 (1.0-4.0); LYMPHOCYTES % (AUTO) 12 % (12-44); MEAN CORPUSCULAR HEMOGLOBIN 30 PG (25-34); MEAN CORPUSCULAR HGB CONC 35 G/DL (32-36); MEAN CORPUSCULAR VOLUME 87 FL (80-99); MEAN PLATELET VOLUME 10.1 FL (7.4-10.4); MONOCYTES # (AUTO) 0.8 X 10^3 (0.0-1.0); MONOCYTES % (AUTO) 5 % (0-12); NEUTROPHILS % (AUTO) 81 % (42-75); PLATELET COUNT 291 10^3/uL (130-400); RED BLOOD COUNT 4.27 10^6/uL (4.35-5.85); RED CELL DISTRIBUTION WIDTH 13.2 % (10.0-14.5); WHITE BLOOD COUNT 16.1 10^3/uL (4.3-11.0)
[2018-02-23 22:47] LABS: INR 1.1 (0.8-1.4)
[2018-02-23 22:53] LABS: ALANINE AMINOTRANSFERASE 15 U/L (0-55); ALKALINE PHOSPHATASE 91 U/L (40-136); BILIRUBIN,TOTAL 0.4 MG/DL (0.1-1.0); BUN/CREATININE RATIO 12; CALCIUM 8.9 MG/DL (8.5-10.1); CARBON DIOXIDE 23 MMOL/L (21-32); CHLORIDE 106 MMOL/L (98-107); CREATININE SERUM 0.78 MG/DL (0.60-1.30); GFR ESTIMATED > 60; GLUCOSE 104 MG/DL (70-105); POTASSIUM 3.8 MMOL/L (3.6-5.0); SODIUM 137 MMOL/L (135-145); TOTAL PROTEIN 6.6 GM/DL (6.4-8.2)
[2018-02-23 22:54] LABS: ALBUMIN 3.7 GM/DL (3.2-4.5)
[2018-02-23 22:56] LABS: BAND NEUTROPHILS 8 %; BASOPHILS % (MANUAL) 2 %; EOSINOPHILS % (MANUAL) 1 %; LYMPHOCYTES % (MANUAL) 17 %; MONOCYTES % (MANUAL) 5 %; NEUTROPHILS % (MANUAL) 67 %
[2018-02-23 22:57] LABS: RBC MORPH NORMAL
[2018-02-23] MEDS ORDERED: NS IV 1000 ML 1,000 ML IV SCH (23:31)
[2018-02-23] MEDS ORDERED: ONDANSETRON 4 MG/2 ML (SDV) Z0FRAN ONE (23:45)
[2018-02-23] MEDS ORDERED: cefTRIAXone INJECTION 2,000 MG in NS (IVPB) 50 ML IV ONE (23:45)
--- OUTSIDE RECORDS SUMMARY | 2018-02-24 00:36 | XMS REPORT | Clinical Summary ---
Author Author [facility] Organization [facility] Address Unknown Phone Unavailable Care Team Providers Care Tower Director Name Role Phone Carlie Sorto MD PCP Source Comments Some departments are not documenting in the electronic medical record. If you do not see the information that you expected, contact Release of Information in the Health Information Management department at [phone] for further assistance in locating additional records.[facility] Allergies No Known Allergies Current Medications [...] Referring Physician: Carlie Sorto Contact Name &Number: [facility] ED PCP: Liliya Betancourt MD / Lisa Trimble APRN Primary Care Physician: Carlie Sorto CC:pelvic mass, carcinomatosis History of Present Illness: Devendra Anderson is a 31 y.o. female 07/07/17 went to PCP for abdominal pain and muscle cramps. Given flexiril 10 and labs drawn. DC'ed home. 07/08/17 presented to [facility] ED in [place], [place] c/o increasing lumbar back pain x2 [...] week postoperative visit. States she went to [place] ED Tuesday08/06/17 for concern over wound separation [...] Taken Blood Pressure 155/69 11/07/2017 3:56 PM SEWING MACHINE OPERATOR ZIPPER Pulse 59 11/07/2017 3:56 PM SEWING MACHINE OPERATOR ZIPPER Temperature 36.4 C (97.6 F) 11/07/2017 3:56 PM SEWING MACHINE OPERATOR ZIPPER Respiratory Rate 16 11/07/2017 3:56 PM SEWING MACHINE OPERATOR ZIPPER Oxygen Saturation 100% 11/07/2017 3:56 PM SEWING MACHINE OPERATOR ZIPPER Inhaled Oxygen - - Concentration Weight 144.2 kg (318 lb) 11/07/2017 3:56 PM SEWING MACHINE OPERATOR ZIPPER Height 167.6 cm (5' 6") 11/07/2017 3:56 PM SEWING MACHINE OPERATOR ZIPPER Body Mass Index 51.33 11/07/2017 3:56 PM SEWING MACHINE OPERATOR ZIPPER Plan of Treatment Health Maintenance Due Date Last Done Comments PHYSICAL (COMPREHENSIVE) 12/01/1991 EXAM PERTUSSIS VACCINE 12/01/1995 HIV SCREENING 12/01/1999 TETANUS VACCINE 2001 CERVICAL CANCER SCREENING 2014 INFLUENZA VACCINE 06/12/2018 Results Not on filefrom Last 3 Months
--- OUTSIDE RECORDS SUMMARY | 2018-02-24 00:37 | XMS REPORT | Continuity of Care Document ---
Author Author [facility] Organization [facility] Address Unknown Phone Unavailable Allergies Active Description Code Type Severity Reaction Onset Reported/Identified Relationship to Patient Clinical Status Yes Iodinated Contrast- Oral and IV Dye [id number] Drug Allergy Unknown N/A Yes No Known Drug Allergies [id number] Drug Allergy Unknown N/A 07/08/2017 Medications There [...] BODY MASS INDEX 45.0-49.9, ADULT 03/12/2015 ALY PONCE MD Ot 592.1 CALCULUS OF URETER 03/12/2015 ALY PONCE MD Ot 625.8 FEM GENITAL SYMPTOMS NEC 03/12/2015 ALY PONCE MD Ot 789.09 ABDOMINAL PAIN, OTHER SPECIFIED SITE 06/05/2015 DAPHNEY CORDOVA COUNTER STACKER Ot 795.51 02/15/2016 DAPHNEY CORDOVA COUNTER STACKER Ot 795.51 NONSP RX TO TUBERCULIN SKIN TEST W/O ACT 10/01/2016 DAPHNEY CORDOVA COUNTER STACKER Ot 795.51 NONSP RX TO TUBERCULIN SKIN TEST W/O ACT 07/08/2017 DAPHNEY CORDOVA COUNTER STACKER Ot 795.51 NONSP RX TO TUBERCULIN SKIN [...] culture - 07/08/17 15:17 Bacterial urine culture [id number] NRG COLONY COUNT <10,000 NRG URINE CULTURE [...] Blood erythrocyte morphology finding identification NORMAL NRG Complete urinalysis with reflex to culture - 02/23/18 21:50 Urine color determination YELLOW NRG Urine clarity determination CLEAR NRG Urine pH measurement by test strip 6 5-9 Specific gravity of urine by test strip 1.020 1.016- 1.022 Urine protein assay by test strip, semi-quantitative NEGATIVE NEGATIVE Urine glucose detection by automated test strip NEGATIVE NEGATIVE Erythrocytes detection in urine sediment by light microscopy 3+ NEGATIVE Urine ketones detection by automated test strip NEGATIVE NEGATIVE Urine nitrite detection by test strip NEGATIVE NEGATIVE Urine total bilirubin detection by test strip NEGATIVE NEGATIVE Urine urobilinogen measurement by automated test strip (mass/volume) NORMAL NORMAL Urine leukocyte esterase detection by dipstick 1+ NEGATIVE Automated urine sediment erythrocyte count by microscopy (number/high power field) [HPF] NRG Automated urine sediment leukocyte count by microscopy (number/high power field ) [HPF] NRG Bacteria detection in urine sediment by light microscopy TRACE NRG Squamous epithelial cells detection in urine sediment by light microscopy 2-5 NRG Crystals detection in urine sediment by light microscopy NONE NRG Casts detection in urine sediment by light microscopy NONE NRG Mucus detection in urine sediment by light microscopy NEGATIVE NRG Complete urinalysis with reflex to culture NO NRG Complete blood count (CBC) with automated white blood cell (WBC) differential - 02/23/18 22:25 Blood leukocytes automated count (number/volume) 16.1 10*3/uL 4.3-11.0 Blood erythrocytes automated count (number/volume) 4.27 10*6/uL 4.35-5.85 Venous blood hemoglobin measurement (mass/volume) 13.0 g/dL 11.5-16.0 Blood hematocrit (volume fraction) 37 % 35-52 Automated erythrocyte mean corpuscular volume 87 [foz_us] 80-99 Automated erythrocyte mean corpuscular hemoglobin (mass per erythrocyte) 30 pg 25-34 Automated erythrocyte mean corpuscular hemoglobin concentration measurement ( mass/volume) 35 g/dL 32-36 Automated erythrocyte distribution width ratio 13.2 % 10.0-14.5 Automated blood platelet count (count/volume) 291 10*3/uL 130-400 Automated blood platelet mean volume measurement 10.1 [foz_us] 7.4-10.4 Automated blood neutrophils/100 leukocytes 81 % 42-75 Automated blood lymphocytes/100 leukocytes 12 % 12-44 Blood monocytes/100 leukocytes 5 % 0-12 Automated blood eosinophils/100 leukocytes 2 % 0-10 Automated blood basophils/100 leukocytes 0 % 0-10 Blood neutrophils automated count (number/volume) 13.0 10*3 1.8-7.8 Blood lymphocytes automated count (number/volume) 1.9 10*3 1.0-4.0 Blood monocytes automated count (number/volume) 0.8 10*3 0.0-1.0 Automated eosinophil count 0.3 10*3/uL 0.0-0.3 Automated blood basophil count (count/volume) 0.0 10*3/uL 0.0-0.1 Blood lactic acid measurement (moles/volume) - 02/23/18 22:25 Blood lactic acid measurement (moles/volume) 1.63 mmol/L 0.50-2.00 PT panel in platelet poor plasma by coagulation assay - 02/23/18 22:25 Prothrombin time (PT) in platelet poor plasma by coagulation assay 14.0 s 12.2-14.7 INR in platelet poor plasma or blood by coagulation assay 1.1 0.8-1.4 Activated partial thromboplastin time (aPTT) in platelet poor plasma bycoagulation assay - 02/23/18 22:25 Activated partial thromboplastin time (aPTT) in platelet poor plasma bycoagulation assay 28 s 24-35 Comprehensive metabolic panel - 02/23/18 22:25 Serum or plasma sodium measurement (moles/volume) 137 mmol/L 135-145 Serum or plasma potassium measurement (moles/volume) 3.8 mmol/L 3.6-5.0 Serum or plasma chloride measurement (moles/volume) 106 mmol/L 98-107 Carbon dioxide 23 mmol/L 21-32 Serum or plasma anion gap determination (moles/volume) 8 mmol/L 5-14 Serum or plasma urea nitrogen measurement (mass/volume) 9 mg/dL 7-18 Serum or plasma creatinine measurement (mass/volume) 0.78 mg/dL 0.60-1.30 Serum or plasma urea nitrogen/creatinine mass ratio 12 NRG Serum or plasma creatinine measurement with calculation of estimated glomerular filtration rate > NRG Serum or plasma glucose measurement (mass/volume) 104 mg/dL 70-105 Serum or plasma calcium measurement (mass/volume) 8.9 mg/dL 8.5-10.1 Serum or plasma total bilirubin measurement (mass/volume) 0.4 mg/dL 0.1-1.0 Serum or plasma alkaline phosphatase measurement (enzymatic activity/volume) 91 U/L 40-136 Serum or plasma aspartate aminotransferase measurement (enzymatic activity/ volume) 17 U/L 5-34 Serum or plasma alanine aminotransferase measurement (enzymatic activity/volume ) 15 U/L 0-55 Serum or plasma protein measurement (mass/volume) 6.6 g/dL 6.4-8.2 Serum or plasma albumin measurement (mass/volume) 3.7 g/dL 3.2-4.5 Blood manual differential performed detection - 02/23/18 22:25 Blood monocytes/100 leukocytes 5 % NRG Manual blood segmented neutrophils/100 leukocytes 67 % NRG Blood band neutrophils/100 leukocytes 8 % NRG Manual blood lymphocytes/100 leukocytes 17 % NRG Manual eosinophils/100 leukocytes in nose 1 % NRG Manual blood basophils/100 leukocytes 2 % NRG Blood erythrocyte morphology finding identification NORMAL NRG Serum or plasma C reactive protein measurement (mass/volume) - 02/23/18 22:25 Serum or plasma C reactive protein measurement (mass/volume) 1.37 mg /dL 0.00-0.50 Encounters ACCT No. Visit Date/Time Discharge Status Pt. Type Provider Facility Loc./Unit Complaint [id number] 08/06/2017 11:35:00 08/06/2017 13:56:00 DIS Emergency BISHOP RODRIGUEZ [facility] ER WOUND OOZING AND PULLING OPEN ON ABD,POSS INFECTIO [id number] 07/08/2017 16:49:00 07/10/2017 13:20:00 DIS Inpatient KIT CLOUD MD [facility] 4TH ABD PAIN,PELVIC MASS W PLEURAL [id number] 05/21/2015 12:50:00 05/21/2015 23:59:59 CLS Outpatient DAPHNEY CORDOVA COUNTER STACKER [facility] RAD REACTION TO TB SKIN TEST [id number] 03/12/2015 07:21:00 03/12/2015 09:51:00 DIS Emergency KRIS VALLES, ALY Linda [facility] ER FLANK PAIN;VOMITING; DEHYDRATION [id number] 06/14/2013 17:15:00 06/17/2013 09:47:00 DIS Inpatient DAKOTA VALLES, JALEN Grady [facility] SURGICAL FACIAL CELLULITIS, INTRACTABLE FACIAL PAIN [id number] 02/23/2018 22:07:00 Document Registration [id number] 11/10/2012 14:29:00 Document Registration [id number] 05/10/2012 06:33:00 Document Registration [id number] 05/05/2012 09:21:00 Document Registration [id number] 04/25/2012 20:14:00 Document Registration [id number] 07/07/2017 11:45:00 07/07/2017 23:59:59 [facility] Outpatient DAPHNEY CORDOVA APRN [facility] [id number] 07/07/2017 11:45:00 Document Registration [id number] 07/08/2017 08:41:00 Document Registration
--- NOTE | 2018-02-24 00:42 | ED Abdominal Pain ---
General Chief Complaint: Abdominal/GI Problems Stated Complaint: ABD PAIN,CELLULITIS,SEPSIS Nursing Triage Note: Pt had expl. lap last July, they removed left ovary. At f/u in Sep with she was cleared but told to come back if she had abdominal pain, abdominal pain started tonight at 1700 along with LOYD Sepsis Screen: No Definite Risk History of Present Illness Date Seen by Provider: Feb 23, 2018 Time Seen by Provider: 22:00 Initial Comments 32-year-old female reports last July being diagnosed with an abdominal mass, she required exploratory laparotomy and left hysterectomy at . She had problems with wound dehiscence and her surgeon was concerned that she would develop an abscess. She has done well with wound care and had no further problems until today when she began to have abdominal pain and a headache. She denies running a fever at home. She's had no nausea or vomiting. Reports her midline abdominal incision to be well-controlled at this time with no drainage or further wound dehiscence. Timing/Duration: 1-3 Hours Severity/Quality: Moderate Location: Generalized Abdomen Radiation: No Radiation Associated Symptoms: Headache Allergies and Home Medications Allergies Coded Allergies: Iodinated Contrast- Oral and IV Dye (Verified Allergy, Unknown, 07/08/17) Home Medications Sulfamethoxazole/Trimethoprim 1 Each Tablet, 1 EACH PO BID Prescribed by: BISHOP STEVENS on 08/06/17 1329 Patient Home Medication List Home Medication List Reviewed: Yes Review of Systems Constitutional: no symptoms reported, see HPI Gastrointestinal: See HPI, Abdomen Distended, Abdominal Pain; Denies Constipated, Denies Diarrhea, Denies Nausea, Denies Poor Appetite, Denies Poor Fluid Intake, Denies Vomiting Skin: see HPI, change in color (she has noticed trace erythema to her lower abdomen) All Other Systems Reviewed Negative Unless Noted: Yes Past Wvfmbte-Hamcwv-Vtcaap Hx Past Med/Social Hx: Reviewed Nursing Past Med/Soc Hx Patient Social History Alcohol Use: Denies Use Number of Drinks Today: AA Recreational Drug Use: No Smoking Status: Never a Smoker 2nd Hand Smoke Exposure: No Recent Foreign Travel: No Contact w/Someone Who Travel: No Recent Infectious Disease Expo: No Recent Hopitalizations: Yes (EXPL LAP ON 07/25/17) Physical Abuse: No Sexual Abuse: No Mistreated: No Fear: No Immunizations Up To Date Tetanus Booster (TDap): Unknown Date of Influenza Vaccine: Jun 28, 2017 Seasonal Allergies Seasonal Allergies: Yes Past Medical History Surgeries: Yes (T & A 2001 WISDOM TEETH 2009) Oophorectomy Respiratory: No Cardiac: No Neurological: No Hx : 2 Hx Para: 2 Reproductive Disorders: No Female Reproductive Disorders: Denies Genitourinary: Yes Kidney Stones Gastrointestinal: No Musculoskeletal: No Endocrine: No HEENT: No Cancer: No Psychosocial: No Nursing Suicide Risk Score: 1 Integumentary: No Blood Disorders: No Family Medical History Diabetes mellitus 19 FATHER Guillain-[place] syndrome 19 MOTHER No Pertinent Family Hx Physical Exam Vital Signs Vital Signs - First Documented 02/23/18 20:32 Temp 97.6 Pulse 119 Resp 18 B/P (MAP) 153/87 (109) Pulse Ox 97 O2 Delivery Room Air Capillary Refill : Less Than 3 Seconds General Appearance: WD/WN, no apparent distress, obese (PMI 48.4) HEENT: PERRL/EOMI, normal ENT inspection, TMs normal, pharynx normal Neck: non-tender, full range of motion, supple, normal inspection Respiratory: chest non-tender, lungs clear, normal breath sounds Cardiovascular: normal peripheral pulses, regular rate, rhythm Gastrointestinal: normal bowel sounds, distended; No guarding, No rebound; tenderness (generalized all 4 quadrants), other (negative Jay sign. Suprapubic region surrounding the midline incision has trace erythema and warmth. There is no induration or fluctuance. No active drainage noted.) Extremities: normal range of motion, non-tender, normal inspection Neurologic/Psychiatric: no motor/sensory deficits, alert, normal mood/affect, oriented x 3 Skin: normal color, warm/dry Focused Exam Lactate Level 02/23/18 22:25: Lactic Acid Level 1.63 Lactic Acid Level Laboratory Tests Test 02/23/18 22:25 Lactic Acid Level 1.63 MMOL/L (0.50-2.00) Progress/Results/Core Measures Results/Orders Lab Results Laboratory Tests Test 02/23/18 21:50 02/23/18 22:25 Range/Units Urine Color YELLOW Urine Clarity CLEAR Urine pH 6 5-9 Urine Specific [place] 1.020 1.016-1.022 Urine Protein NEGATIVE NEGATIVE Urine Glucose (UA) NEGATIVE NEGATIVE Urine Ketones NEGATIVE NEGATIVE Urine Nitrite NEGATIVE NEGATIVE Urine Bilirubin NEGATIVE NEGATIVE Urine Urobilinogen NORMAL NORMAL MG/DL Urine Leukocyte Esterase 1+ H NEGATIVE Urine RBC (Auto) 3+ H NEGATIVE Urine RBC 5-10 H /HPF Urine WBC 2-5 /HPF Urine Squamous Epithelial Cells 2-5 /HPF Urine Crystals NONE /LPF Urine Bacteria TRACE /HPF Urine Casts NONE /LPF Urine Mucus NEGATIVE /LPF Urine Culture Indicated NO White Blood Count 16.1 H 4.3-11.0 10^3/uL Red Blood Count 4.27 L 4.35-5.85 10^6/uL Hemoglobin 13.0 11.5-16.0 G/DL Hematocrit 37 35-52 % Mean Corpuscular Volume 87 80-99 FL Mean Corpuscular Hemoglobin 30 25-34 PG Mean Corpuscular Hemoglobin Concent 35 32-36 G/DL Red Cell Distribution Width 13.2 10.0-14.5 % Platelet Count 291 130-400 10^3/uL Mean Platelet Volume 10.1 7.4-10.4 FL Neutrophils (%) (Auto) 81 H 42-75 % Lymphocytes (%) (Auto) 12 12-44 % Monocytes (%) (Auto) 5 0-12 % Eosinophils (%) (Auto) 2 0-10 % Basophils (%) (Auto) 0 0-10 % Neutrophils # (Auto) 13.0 H 1.8-7.8 X 10^3 Lymphocytes # (Auto) 1.9 1.0-4.0 X 10^3 Monocytes # (Auto) 0.8 0.0-1.0 X 10^3 Eosinophils # (Auto) 0.3 0.0-0.3 10^3/uL Basophils # (Auto) 0.0 0.0-0.1 10^3/uL Neutrophils % (Manual) 67 % Lymphocytes % (Manual) 17 % Monocytes % (Manual) 5 % Eosinophils % (Manual) 1 % Basophils % (Manual) 2 % Band Neutrophils 8 % Blood Morphology Comment NORMAL Prothrombin Time 14.0 12.2-14.7 SEC INR Comment 1.1 0.8-1.4 Activated Partial Thromboplast Time 28 24-35 SEC Sodium Level 137 135-145 MMOL/L Potassium Level 3.8 3.6-5.0 MMOL/L Chloride Level 106 98-107 MMOL/L Carbon Dioxide Level 23 21-32 MMOL/L Anion Gap 8 5-14 MMOL/L Blood Urea Nitrogen 9 7-18 MG/DL Creatinine 0.78 0.60-1.30 MG/DL Estimat Glomerular Filtration Rate > 60 BUN/Creatinine Ratio 12 Glucose Level 104 70-105 MG/DL Lactic Acid Level 1.63 0.50-2.00 MMOL/L Calcium Level 8.9 8.5-10.1 MG/DL Total Bilirubin 0.4 0.1-1.0 MG/DL Aspartate Amino Transf (AST/SGOT) 17 5-34 U/L Alanine Aminotransferase (ALT/SGPT) 15 0-55 U/L Alkaline Phosphatase 91 40-136 U/L C-Reactive Protein High Sensitivity 1.37 H 0.00-0.50 MG/DL Total Protein 6.6 6.4-8.2 GM/DL Albumin 3.7 3.2-4.5 GM/DL My Orders Orders - OWEN NOEL Ua Culture If Indicated (02/23/18 21:41) Urine Bedside (02/23/18 21:55) Cbc With Automated Diff (02/23/18 22:19) Comprehensive Metabolic Panel (02/23/18 22:19) Lactic Acid Analyzer (02/23/18 22:19) Blood Culture (02/23/18 22:19) Protime With Inr (02/23/18 22:19) Partial Thromboplastin Time (02/23/18 22:19) Saline Lock/Iv-Start (02/23/18 22:19) Ct Abdomen/Pelvis Wo (02/23/18 22:20) Acetaminophen Tablet/Caplet (Tylenol T (02/23/18 22:20) Manual Differential (02/23/18 22:25) Saline Lock/Iv-Start (02/23/18 23:31) Ns Iv 1000 Ml (Sodium Chloride 0.9%) (02/23/18 23:31) Ceftriaxone Injection (Rocephin Injectio (02/23/18 23:45) Hs C Reactive Protein (02/23/18 23:43) Medications Given in ED Current Medications Medications Dose Ordered Sig/[place] Route Start Time Stop Time Status Last Admin Dose Admin Ceftriaxone Sodium 2000 mg/ Sodium Chloride 50 ml @ 100 mls/hr ONCE ONCE IV 02/23/18 23:45 02/24/18 00:14 DC 02/23/18 23:35 100 MLS/HR Vital Signs/I&O 02/23/18 02/23/18 02/23/18 02/23/18 20:32 21:30 22:00 22:30 Temp 97.6 97.9 Pulse 119 18 116 112 Resp 18 11 18 18 B/P (MAP) 153/87 (109) 115/70 121/74 119/69 Pulse Ox 97 97 97 97 O2 Delivery Room Air Room Air Room Air Room Air 02/23/18 02/23/18 23:00 23:30 Pulse 110 108 Resp 20 20 B/P (MAP) 121/70 113/70 Pulse Ox 97 98 O2 Delivery Room Air Room Air Blood Pressure Mean: 109 Urine -Bedside: Negative Progress Progress Note : Time: 22:00 Progress Note Initial evaluation completed, recommended UA and urine hCG. Will continue to monitor patient. 2230 will obtain labs for sepsis workup and monitor patient. CT abdomen and pelvis. 2300 WBC 16.1, lactic acid 1.63, CRP 1.37. Discussed these results with the patient and her family. Awaiting CT results. Normal saline 1 L IV, Rocephin [address] results discussed with the patient and her parents, recommended admission for observation. 2330 discussed patient's findings and CT/lab studies Dr. Bar per phone, recommended admission for observation. Would like the patient nothing by mouth after midnight tonight, so studies could be completed tomorrow morning if needed. 2345 plan of care and all questions discussed with the patient. Departure Impression Primary Impression: Cellulitis of abdominal wall Additional Impressions: Sepsis Qualified Codes: A41.9 - Sepsis, unspecified organism Abdominal wall pain Disposition: ADMITTED INPATIENT Condition: Stable Admissions Decision to Admit Reason: Admit from ER (General) Decision to Admit/Date: Feb 23, 2018 Time/Decision to Admit Time: 23:00 Departure-Patient Inst. Referrals: [facility] (PCP/Family) Primary Care Physician Copy Copies To 1: KIT CLOUD MD, AMY ARNP Feb 24, 2018 00:42
[2018-02-24] MEDS ORDERED: NS IV 1000 ML 1,000 ML IV SCH (00:46)
[2018-02-24 00:59] VITALS: BP 136/76
[2018-02-24] MEDS: NS IV 1000 ML 1,000 ML IV SCH ×4 (01:00→21:03)
[2018-02-24] MEDS ORDERED: IBUPROFEN 800 MG (MOTRIN) TAB PO PRN (01:15)
[2018-02-24] MEDS ORDERED: fentaNYL INJECTION 100 MCG/2 ML AMP IV PRN (01:15)
[2018-02-24] MEDS ORDERED: ONDANSETRON 4 MG/2 ML (SDV) Z0FRAN IV PRN (01:15)
[2018-02-24] MEDS ORDERED: ACETAMINOPHEN 325 MG TABLET/CAPLET (TYLENOL) PO PRN (01:15)
[2018-02-24 04:15] VITALS: BP 144/83
[2018-02-24 05:51] LABS: BASOPHILS % (AUTO) 0 % (0-10); EOSINOPHILS # (AUTO) 0.2 10^3/uL (0.0-0.3); EOSINOPHILS % (AUTO) 2 % (0-10); HEMATOCRIT 35 % (35-52); HEMOGLOBIN 11.9 G/DL (11.5-16.0); LYMPHOCYTES # (AUTO) 1.7 X 10^3 (1.0-4.0); LYMPHOCYTES % (AUTO) 16 % (12-44); MEAN CORPUSCULAR HEMOGLOBIN 30 PG (25-34); MEAN CORPUSCULAR HGB CONC 34 G/DL (32-36); MEAN CORPUSCULAR VOLUME 87 FL (80-99); MEAN PLATELET VOLUME 10.3 FL (7.4-10.4); MONOCYTES # (AUTO) 0.5 X 10^3 (0.0-1.0); MONOCYTES % (AUTO) 5 % (0-12); NEUTROPHILS # (AUTO) 7.7 X 10^3 (1.8-7.8); NEUTROPHILS % (AUTO) 76 % (42-75); PLATELET COUNT 271 10^3/uL (130-400); RED BLOOD COUNT 4.01 10^6/uL (4.35-5.85); RED CELL DISTRIBUTION WIDTH 13.3 % (10.0-14.5); WHITE BLOOD COUNT 10.1 10^3/uL (4.3-11.0)
[2018-02-24 06:12] LABS: ALANINE AMINOTRANSFERASE 15 U/L (0-55); ALBUMIN 3.4 GM/DL (3.2-4.5); ALKALINE PHOSPHATASE 82 U/L (40-136); BILIRUBIN,TOTAL 0.6 MG/DL (0.1-1.0); BUN/CREATININE RATIO 13; CALCIUM 8.6 MG/DL (8.5-10.1); CARBON DIOXIDE 23 MMOL/L (21-32); CHLORIDE 107 MMOL/L (98-107); CREATININE SERUM 0.71 MG/DL (0.60-1.30); GFR ESTIMATED > 60; GLUCOSE 104 MG/DL (70-105); POTASSIUM 3.9 MMOL/L (3.6-5.0); SODIUM 138 MMOL/L (135-145); TOTAL PROTEIN 6.1 GM/DL (6.4-8.2)
[2018-02-24 08:00] VITALS: BP 123/75
--- NOTE | 2018-02-24 08:14 | History & Physicial (CHS) ---
HPI History of Present Illness: 32 year old female who presented to ED last night; pt with history of right oophorectomy in July, after abdominal mass noted on CT. Pt had left ovarian cyst drainage at that time as well. Procedure done at . Patient with post op complication of delayed wound healing, but per note from in October, wound healed and pt successfully completed wound care. Pt developed abdominal pain and headache yesterday - no fever, no nausea, no vomiting, and came to ED for evaluation, because surgeon had previously cautioned her about wound infection. Patient with reddened area on upper abdomen, mostly to right of healed midline incision. Abdominal pain is superficial in nature. Source: RN/, RN notes reviewed, old records Exam Limitations: no limitations Date seen by provider: Feb 24, 2018 Time Seen by Provider: 12:15 Attending Physician Kit Sotro MD PCP [place] [place] Consult Wound Care, General Surgery Date of Admission Feb 23, 2018 at 23:45 Home Medications Home Medications Reviewed patient Home Medication Reconciliation performed by pharmacy medication reconciliations materials engineering technician and/or nursing. Patients Allergies have been reviewed. Allergies Coded Allergies: Iodinated Contrast- Oral and IV Dye (Verified Allergy, Unknown, 07/08/17) HXM-Tkamia-Bywsyr Hx Patient Social History Marrital Status: single Living Status: lives independently Alcohol Use: Denies Use Recreational Drug Use: No Smoking Status: Never a Smoker 2nd Hand Smoke Exposure: No Recent Foreign Travel: No Contact w/other who traveled: No Recent Hopitalizations: Yes (EXPL LAP ON 07/25/17) Recent Infectious Disease Expo: No Physical Abuse Screen: No Sexual Abuse: No Immunizations Up To Date Tetanus Booster (TDap): Unknown Date of Influenza Vaccine: Jun 28, 2017 Past Medical History Right Ovarian Mass, Carcinomatosis, Malignant Ascites, Pelvic Mass in Female 07/21/17 at --> Pathology with r ovary, struma ovarii Post op wound with delayed healing --> followed with wound care s/p ex lap, RSO, L ovarian cystectomy 07/25/17 at Family Medical History Family History: Diabetes mellitus 19 FATHER Guillain-[place] syndrome 19 MOTHER Review of Systems ([facility]) Constitutional: see HPI EENTM: see HPI Respiratory: no symptoms reported Cardiovascular: no symptoms reported Gastrointestinal: see HPI Genitourinary: no symptoms reported Musculoskeletal: no symptoms reported Skin: no symptoms reported Psychiatric/Neurological: No Symptoms Reported Reviewed Test Results Reviewed Test Results Lab 02/23/18 22:25: Lactic Acid Level 1.63 Laboratory Tests Test 02/23/18 21:50 02/23/18 22:25 02/24/18 05:24 Range/Units Urine Color YELLOW Urine Clarity CLEAR Urine pH 6 5-9 Urine Specific [place] 1.020 1.016-1.022 Urine Protein NEGATIVE NEGATIVE Urine Glucose (UA) NEGATIVE NEGATIVE Urine Ketones NEGATIVE NEGATIVE Urine Nitrite NEGATIVE NEGATIVE Urine Bilirubin NEGATIVE NEGATIVE Urine Urobilinogen NORMAL NORMAL MG/DL Urine Leukocyte Esterase 1+ H NEGATIVE Urine RBC (Auto) 3+ H NEGATIVE Urine RBC 5-10 H /HPF Urine WBC 2-5 /HPF Urine Squamous Epithelial Cells 2-5 /HPF Urine Crystals NONE /LPF Urine Bacteria TRACE /HPF Urine Casts NONE /LPF Urine Mucus NEGATIVE /LPF Urine Culture Indicated NO White Blood Count 16.1 H 10.1 4.3-11.0 10^3/uL Red Blood Count 4.27 L 4.01 L 4.35-5.85 10^6/uL Hemoglobin 13.0 11.9 11.5-16.0 G/DL Hematocrit 37 35 35-52 % Mean Corpuscular Volume 87 87 80-99 FL Mean Corpuscular Hemoglobin 30 30 25-34 PG Mean Corpuscular Hemoglobin Concent 35 34 32-36 G/DL Red Cell Distribution Width 13.2 13.3 10.0-14.5 % Platelet Count 291 271 130-400 10^3/uL Mean Platelet Volume 10.1 10.3 7.4-10.4 FL Neutrophils (%) (Auto) 81 H 76 H 42-75 % Lymphocytes (%) (Auto) 12 16 12-44 % Monocytes (%) (Auto) 5 5 0-12 % Eosinophils (%) (Auto) 2 2 0-10 % Basophils (%) (Auto) 0 0 0-10 % Neutrophils # (Auto) 13.0 H 7.7 1.8-7.8 X 10^3 Lymphocytes # (Auto) 1.9 1.7 1.0-4.0 X 10^3 Monocytes # (Auto) 0.8 0.5 0.0-1.0 X 10^3 Eosinophils # (Auto) 0.3 0.2 0.0-0.3 10^3/uL Basophils # (Auto) 0.0 0.0 0.0-0.1 10^3/uL Neutrophils % (Manual) 67 % Lymphocytes % (Manual) 17 % Monocytes % (Manual) 5 % Eosinophils % (Manual) 1 % Basophils % (Manual) 2 % Band Neutrophils 8 % Blood Morphology Comment NORMAL Prothrombin Time 14.0 12.2-14.7 SEC INR Comment 1.1 0.8-1.4 Activated Partial Thromboplast Time 28 24-35 SEC Sodium Level 137 138 135-145 MMOL/L Potassium Level 3.8 3.9 3.6-5.0 MMOL/L Chloride Level 106 107 98-107 MMOL/L Carbon Dioxide Level 23 23 21-32 MMOL/L Anion Gap 8 8 5-14 MMOL/L Blood Urea Nitrogen 9 9 7-18 MG/DL Creatinine 0.78 0.71 0.60-1.30 MG/DL Estimat Glomerular Filtration Rate > 60 > 60 BUN/Creatinine Ratio 12 13 Glucose Level 104 104 70-105 MG/DL Lactic Acid Level 1.63 0.50-2.00 MMOL/L Calcium Level 8.9 8.6 8.5-10.1 MG/DL Total Bilirubin 0.4 0.6 0.1-1.0 MG/DL Aspartate Amino Transf (AST/SGOT) 17 14 5-34 U/L Alanine Aminotransferase (ALT/SGPT) 15 15 0-55 U/L Alkaline Phosphatase 91 82 40-136 U/L C-Reactive Protein High Sensitivity 1.37 H 0.00-0.50 MG/DL Total Protein 6.6 6.1 L 6.4-8.2 GM/DL Albumin 3.7 3.4 3.2-4.5 GM/DL Radiology Date of Exam: 02/23/18 CT ABDOMEN/PELVIS WO PROCEDURE: CT abdomen and pelvis without contrast. TECHNIQUE: Multiple contiguous axial images were obtained through the abdomen and pelvis without the use of intravenous contrast. INDICATION: Abdominal pain status post oophorectomy. COMPARISON: 07/08/2017. FINDINGS: Evaluation of the abdominal viscera is mildly limited without contrast. Lower chest: The lung bases are clear. No pericardial or pleural effusion. Peritoneum: No free intraperitoneal air or fluid. No loculated fluid within the abdomen or pelvis to indicate abscess. Liver and biliary system: Unenhanced liver is normal. The gallbladder is normal. No biliary duct dilation. Spleen and Pancreas: Spleen is normal. Unenhanced pancreas is grossly normal. Adrenals: Normal. tract: No renal or ureteral calculi. No obstructive uropathy. Uterus is normal in appearance. In the left adnexa there is a 3.4 x 2.7 cm cystic structure which appears to be in close communication with the left gonadal vein which would be most compatible with an ovarian cyst. GI tract: Stomach is decompressed. No bowel obstruction. No pericolonic inflammatory changes. Normal appendix. Vasculature and Lymph nodes: Normal caliber aorta. No abdominal or pelvic lymphadenopathy. Musculoskeletal: No concerning osseous lesion. Linear laparotomy scar is present in the midline of the lower abdomen. IMPRESSION: 1. No free fluid or loculated fluid collections in the abdomen or pelvis to indicate abscess. 2. Left adnexal cystic focus measures 3.4 x 2.7 cm. By imaging, this has features most compatible with a normal left ovarian follicle with surrounding normal ovarian tissue. However, correlation with patient's surgical history is advised to determine if the patient still has a left ovary. On CT from 07/08/2017, the ruptured ovary cyst appeared to be the right ovary rather than the left. 3. Findings are in agreement with the preliminary report. Physical Exam-([facility]) Physical Exam Vital Signs VS - Last 72 Hours, by Label 02/23/18 02/23/18 02/23/18 02/23/18 20:32 21:30 22:00 22:30 Temp 97.6 97.9 Pulse 119 18 116 112 Resp 18 11 18 18 B/P (MAP) 153/87 (109) 115/70 121/74 119/69 Pulse Ox 97 97 97 97 O2 Delivery Room Air Room Air Room Air Room Air 02/23/18 02/23/18 02/24/18 02/24/18 23:00 23:30 00:01 00:45 Temp 98.1 Pulse 110 108 112 118 Resp 20 20 20 18 B/P (MAP) 121/70 123/70 112/94 145/94 Pulse Ox 97 98 97 97 O2 Delivery Room Air Room Air Room Air Room Air 02/24/18 02/24/18 02/24/18 02/24/18 00:58 00:59 04:15 08:00 Temp 100.1 99.5 98.0 Pulse 0 96 95 72 Resp 0 18 20 20 B/P (MAP) 0/0 136/76 (96) 144/83 (103) 123/75 (91) Pulse Ox 0 96 96 95 O2 Delivery Room Air Room Air Room Air 02/24/18 02/24/18 02/24/18 12:00 16:00 20:05 Temp 98.0 98.0 97.5 Pulse 59 82 67 Resp 20 18 20 B/P (MAP) 138/73 (94) 131/64 (86) 152/65 (94) Pulse Ox 96 97 96 O2 Delivery Room Air Room Air Room Air Capillary Refill : Less Than 3 Seconds General Appearance: WD/WN, no apparent distress Eyes: Bilateral Eye Normal Inspection, Bilateral Eye EOMI HEENT: normal ENT inspection; No scleral icterus (R), No scleral icterus (L), No photophobia Neck: non-tender, full range of motion, supple, normal inspection Respiratory: chest non-tender, lungs clear, normal breath sounds, no respiratory distress, no accessory muscle use Cardiovascular: regular rate, rhythm, no edema, no gallop, no JVD, no murmur Gastrointestinal: normal bowel sounds, soft, no organomegaly, no pulsatile mass , other (obese, healed midline incision, redness to right of healed incision, no drainage) Rectal: deferred Extremities: normal range of motion, non-tender, normal inspection, no calf tenderness, normal capillary refill Neurologic/Psychiatric: loan closer II-XII nml as tested, no motor/sensory deficits, alert, normal mood/affect, oriented x 3 Skin: normal color, warm/dry, other (red, warm area to right of healed midline incision as noted above, no drainage/odor/discharge) Assessment/Plan Assessment/Plan Admission Dx Cellulitis of Abdomen Morbid Obesity, BMI 57 Left Ovarian Cyst Admission Status: Observation (1) Left ovarian cyst Status: Acute Assessment & Plan: -likely ovulatory in nature per CT report -no pelvic pain (2) Morbid obesity with BMI of 50.0-59.9, adult Status: Chronic (3) Cellulitis of abdominal wall Status: Acute Assessment & Plan: -pt given rocephin in ED -put on cefepime, will also cover for potential MRSA with Bactrim -cellulitis appears extremely superficial, likely discomfort made worse due to pannus and pt's morbid obesity -diflucan at pt request, reports that she always gets yeast infections when on abx and requests they be started at the same time -anticipate pt will be able to discharge home with PO abx in AM Clinical Quality Measures DVT/VTE Risk/Contraindication: Risk Factor Score Per Nursin RFS Level Per Nursing on Admit: 4+=Very High Copy Copies To 1: KIT SORTO MD, MARGARET E DO Feb 24, 2018 08:14
--- NOTE | 2018-02-24 08:17 | Diagnostic Imaging Report ---
PROCEDURE: CT abdomen and pelvis without contrast. TECHNIQUE: Multiple contiguous axial images were obtained through the abdomen and pelvis without the use of intravenous contrast. INDICATION: Abdominal pain status post oophorectomy. COMPARISON: 07/08/2017. FINDINGS: Evaluation of the abdominal viscera is mildly limited without contrast. Lower chest: The lung bases are clear. No pericardial or pleural effusion. Peritoneum: No free intraperitoneal air or fluid. No loculated fluid within the abdomen or pelvis to indicate abscess. Liver and biliary system: Unenhanced liver is normal. The gallbladder is normal. No biliary duct dilation. Spleen and Pancreas: Spleen is normal. Unenhanced pancreas is grossly normal. Adrenals: Normal. tract: No renal or ureteral calculi. No obstructive uropathy. Uterus is normal in appearance. In the left adnexa there is a 3.4 x 2.7 cm cystic structure which appears to be in close communication with the left gonadal vein which would be most compatible with an ovarian cyst. GI tract: Stomach is decompressed. No bowel obstruction. No pericolonic inflammatory changes. Normal appendix. Vasculature and Lymph nodes: Normal caliber aorta. No abdominal or pelvic lymphadenopathy. Musculoskeletal: No concerning osseous lesion. Linear laparotomy scar is present in the midline of the lower abdomen. IMPRESSION: 1. No free fluid or loculated fluid collections in the abdomen or pelvis to indicate abscess. 2. Left adnexal cystic focus measures 3.4 x 2.7 cm. By imaging, this has features most compatible with a normal left ovarian follicle with surrounding normal ovarian tissue. However, correlation with patient's surgical history is advised to determine if the patient still has a left ovary. On CT from 07/08/2017, the ruptured ovary cyst appeared to be the right ovary rather than the left. 3. Findings are in agreement with the preliminary report. Dictated by: Dictated on workstation # [id number]
[2018-02-24 12:00] VITALS: BP 138/73
[2018-02-24] MEDS ORDERED: ONDANSETRON 4 MG (ZOFRAN) ORAL DISSOLVE TAB PO PRN (13:45)
[2018-02-24] MEDS: CEFEPIME INJECTION 2,000 MG in NS (IVPB) 50 ML IV SCH ×2 (14:18→21:03)
[2018-02-24] MEDS: oxyCODONE/APAP 5/325MG (PERCOCET 5) TABLET PO PRN ×2 (14:34→22:28)
[2018-02-24 16:00] VITALS: BP 131/64
[2018-02-24] MEDS: TRIM/SULFAMETH 160/800 (SEPTRA DS) TAB PO SCH (17:34)
[2018-02-24 20:05] VITALS: BP 152/65
[2018-02-24] MEDS ORDERED: cefTRIAXone 2 GM/NS 50 ML IVPB IV SCH ×2 (23:00)
[2018-02-25] VITALS: BP 142/80
[2018-02-25 04:00] VITALS: BP 133/73
[2018-02-25] MEDS: NS IV 1000 ML 1,000 ML IV SCH ×2 (04:23→10:59)
[2018-02-25 04:49] LABS: BASOPHILS # (AUTO) 0.1 10^3/uL (0.0-0.1); BASOPHILS % (AUTO) 1 % (0-10); EOSINOPHILS # (AUTO) 0.5 10^3/uL (0.0-0.3); EOSINOPHILS % (AUTO) 7 % (0-10); HEMATOCRIT 33 % (35-52); HEMOGLOBIN 11.4 G/DL (11.5-16.0); LYMPHOCYTES # (AUTO) 2.4 X 10^3 (1.0-4.0); LYMPHOCYTES % (AUTO) 35 % (12-44); MEAN CORPUSCULAR HEMOGLOBIN 31 PG (25-34); MEAN CORPUSCULAR HGB CONC 34 G/DL (32-36); MEAN CORPUSCULAR VOLUME 89 FL (80-99); MEAN PLATELET VOLUME 10.2 FL (7.4-10.4); MONOCYTES # (AUTO) 0.6 X 10^3 (0.0-1.0); MONOCYTES % (AUTO) 9 % (0-12); NEUTROPHILS # (AUTO) 3.4 X 10^3 (1.8-7.8); NEUTROPHILS % (AUTO) 49 % (42-75); PLATELET COUNT 247 10^3/uL (130-400); RED BLOOD COUNT 3.74 10^6/uL (4.35-5.85); RED CELL DISTRIBUTION WIDTH 13.5 % (10.0-14.5); WHITE BLOOD COUNT 6.9 10^3/uL (4.3-11.0)
[2018-02-25 05:06] LABS: BUN/CREATININE RATIO 13; CALCIUM 8.3 MG/DL (8.5-10.1); CARBON DIOXIDE 20 MMOL/L (21-32); CHLORIDE 111 MMOL/L (98-107); GFR ESTIMATED > 60; GLUCOSE 101 MG/DL (70-105); SODIUM 139 MMOL/L (135-145)
[2018-02-25] MEDS: CEFEPIME INJECTION 2,000 MG in NS (IVPB) 50 ML IV SCH ×3 (06:30→22:30)
[2018-02-25] MEDS: TRIM/SULFAMETH 160/800 (SEPTRA DS) TAB PO SCH ×2 (06:30→16:42)
[2018-02-25 08:00] VITALS: BP 137/75
[2018-02-25] MEDS: fluCOnazole (DIFLUCAN) 100 MG TAB PO SCH (08:44)
[2018-02-25 12:00] VITALS: BP 132/81
--- NOTE | 2018-02-25 13:13 | Progress Note (SOAP) ---
Subjective Subjective/Events-last exam Pt reports not a significant amount of improvement in cellulitis or tenderness. Pt has been afebrile. Review of Systems Date Seen by Provider: Feb 25, 2018 Time Seen by Provider: 10:00 Focused Exam Lactate Level 02/23/18 22:25: Lactic Acid Level 1.63 Objective Exam Last Set of Vital Signs Vital Signs Date Time Temp Pulse Resp B/P (MAP) Pulse Ox O2 Delivery O2 Flow Rate FiO2 02/25/18 08:00 97.0 69 18 137/75 (95) 92 Room Air Capillary Refill : Less Than 3 Seconds I&O Intake and Output 02/25/18 00:00 Intake Total 5270 ml Output Total 0 ml Balance 5270 ml Intake Oral 1170 ml IV Total 4100 ml Output Urine Total 0 ml # Voids 5 Daily Weight Change No General: Alert, Oriented X3, Cooperative Skin: Other (erythema unchanged, mild ttp, warm to touch) Results/Procedures Lab Laboratory Tests 02/25/18 04:23: White Blood Count 6.9, Red Blood Count 3.74L, Hemoglobin 11.4L, Hematocrit 33L, Mean Corpuscular Volume 89, Mean Corpuscular Hemoglobin 31, Mean Corpuscular Hemoglobin Concent 34, Red Cell Distribution Width 13.5, Platelet Count 247, Mean Platelet Volume 10.2, Neutrophils (%) (Auto) 49, Lymphocytes (%) (Auto) 35 , Monocytes (%) (Auto) 9, Eosinophils (%) (Auto) 7, Basophils (%) (Auto) 1, Neutrophils # (Auto) 3.4, Lymphocytes # (Auto) 2.4, Monocytes # (Auto) 0.6, Eosinophils # (Auto) 0.5H, Basophils # (Auto) 0.1, Sodium Level 139, Potassium Level 4.0, Chloride Level 111H, Carbon Dioxide Level 20L, Anion Gap 8, Blood Urea Nitrogen 9, Creatinine 0.70, Estimat Glomerular Filtration Rate > 60, BUN/ Creatinine Ratio 13, Glucose Level 101, Calcium Level 8.3L 02/25/18 05:44: Glucometer 97 Microbiology 02/23/18 Blood Culture - Preliminary, Resulted No growth Radiology Date of Exam: 02/23/18 CT ABDOMEN/PELVIS WO PROCEDURE: CT abdomen and pelvis without contrast. TECHNIQUE: Multiple contiguous axial images were obtained through the abdomen and pelvis without the use of intravenous contrast. INDICATION: Abdominal pain status post oophorectomy. COMPARISON: 07/08/2017. FINDINGS: Evaluation of the abdominal viscera is mildly limited without contrast. Lower chest: The lung bases are clear. No pericardial or pleural effusion. Peritoneum: No free intraperitoneal air or fluid. No loculated fluid within the abdomen or pelvis to indicate abscess. Liver and biliary system: Unenhanced liver is normal. The gallbladder is normal. No biliary duct dilation. Spleen and Pancreas: Spleen is normal. Unenhanced pancreas is grossly normal. Adrenals: Normal. tract: No renal or ureteral calculi. No obstructive uropathy. Uterus is normal in appearance. In the left adnexa there is a 3.4 x 2.7 cm cystic structure which appears to be in close communication with the left gonadal vein which would be most compatible with an ovarian cyst. GI tract: Stomach is decompressed. No bowel obstruction. No pericolonic inflammatory changes. Normal appendix. Vasculature and Lymph nodes: Normal caliber aorta. No abdominal or pelvic lymphadenopathy. Musculoskeletal: No concerning osseous lesion. Linear laparotomy scar is present in the midline of the lower abdomen. IMPRESSION: 1. No free fluid or loculated fluid collections in the abdomen or pelvis to indicate abscess. 2. Left adnexal cystic focus measures 3.4 x 2.7 cm. By imaging, this has features most compatible with a normal left ovarian follicle with surrounding normal ovarian tissue. However, correlation with patient's surgical history is advised to determine if the patient still has a left ovary. On CT from 07/08/2017, the ruptured ovary cyst appeared to be the right ovary rather than the left. 3. Findings are in agreement with the preliminary report. Assessment/Plan Assessment/Plan (1) Cellulitis of abdominal wall Status: Acute Assessment & Plan: -pt given rocephin in ED -put on cefepime, will also cover for potential MRSA with Bactrim -cellulitis appears extremely superficial, likely discomfort made worse due to pannus and pt's morbid obesity -diflucan at pt request, reports that she always gets yeast infections when on abx and requests they be started at the same time -anticipate pt will be able to discharge home with PO abx in AM 02/25/18 - cellulitis unchanged will continue Cefepime and Bactrim for another day, if improving will DC home on Bactrim. (2) Left ovarian cyst Status: Acute Assessment & Plan: -likely ovulatory in nature per CT report -no pelvic pain (3) Morbid obesity with BMI of 50.0-59.9, adult Status: Chronic Clinical Quality Measures DVT/VTE Risk/Contraindication: Risk Factor Score Per Nursin RFS Level Per Nursing on Admit: 4+=Very High SANTO BHATTI DO Feb 25, 2018 13:13
[2018-02-25 16:36] VITALS: BP 157/86
[2018-02-25 20:01] VITALS: BP 126/62
[2018-02-26] VITALS: BP 142/80
[2018-02-26 03:25] VITALS: BP 126/77
[2018-02-26] MEDS: CEFEPIME INJECTION 2,000 MG in NS (IVPB) 50 ML IV SCH (06:33)
[2018-02-26] MEDS: TRIM/SULFAMETH 160/800 (SEPTRA DS) TAB PO SCH (06:33)
[2018-02-26 08:00] VITALS: BP 117/76
[2018-02-26] MEDS: fluCOnazole (DIFLUCAN) 100 MG TAB PO SCH (09:03)
[2018-02-26] MEDS ORDERED: SULF1TAB35 PO (10:35)
[2018-02-26] MEDS ORDERED: FLUC100T6 PO (10:35)
--- NOTE | 2018-02-26 10:37 | Discharge Instructions ---
Discharge Inst-[facility] Discharge Medications New, Converted or Re-Newed RX: Transmitted to Pharmacy ([facility]) New Medications: Fluconazole (Fluconazole) 100 Mg Tablet 100 MG PO DAILY for 7 Days, #7 TAB 0 Refills Sulfamethoxazole/Trimethoprim (Bactrim Ds Tablet) 1 Each Tablet 1 EA PO BID WITH MEALS for 7 Days, #14 TAB 0 Refills Patient Instructions Goal/Follow Up Appt: Follow up w/ PCP in 1 week ([facility] will call with appointment) Activity & Diet Discharge Diet: No Restrictions SANTO BHATTI DO Feb 26, 2018 10:37
--- NOTE | 2018-02-26 10:41 | Discharge Summary ---
Diagnosis/Chief Complaint Date of Admission Feb 23, 2018 at 23:45 Date of Discharge February 26, 2018 Admission Diagnosis Admission Diagnosis Cellulitis of Abdomen Morbid Obesity, BMI 57 Left Ovarian Cyst Discharge Diagnosis (1) Cellulitis of abdominal wall Status: Acute Assessment & Plan: -pt given rocephin in ED -put on cefepime, will also cover for potential MRSA with Bactrim -cellulitis appears extremely superficial, likely discomfort made worse due to pannus and pt's morbid obesity -diflucan at pt request, reports that she always gets yeast infections when on abx and requests they be started at the same time -anticipate pt will be able to discharge home with PO abx in AM 02/25/18 - cellulitis unchanged will continue Cefepime and Bactrim for another day, if improving will DC home on Bactrim. 02/26/18 - cellulitis significantly improved this am - DC home w/ Bactrim x7 d; rx for fluconazole for yeast infection, may also use topical Monistat (2) Left ovarian cyst Status: Acute Assessment & Plan: -likely ovulatory in nature per CT report -no pelvic pain (3) Morbid obesity with BMI of 50.0-59.9, adult Status: Chronic Chief Complaint/HPI Chief Complaint/HPI 32 year old female who presented to ED last night; pt with history of right oophorectomy in July, after abdominal mass noted on CT. Pt had left ovarian cyst drainage at that time as well. Procedure done at . Patient with post op complication of delayed wound healing, but per note from [facility] in October, wound healed and pt successfully completed wound care. Pt developed abdominal pain and headache yesterday - no fever, no nausea, no vomiting, and came to ED for evaluation, because surgeon had previously cautioned her about wound infection. Patient with reddened area on upper abdomen, mostly to right of healed midline incision. Abdominal pain is superficial in nature. Discharge Summary-OBS Procedures None. Consultations Wound Care, General Surgery Discharge Physical Examination Allergies: Coded Allergies: Iodinated Contrast- Oral and IV Dye (Verified Allergy, Unknown, 07/08/17) Vitals & I&Os Intake and Output 02/26/18 00:00 Intake Total 2045 ml Balance 2045 ml Vital Sign - Last 12Hours Date Time Temp Pulse Resp B/P (MAP) Pulse Ox O2 Delivery O2 Flow Rate FiO2 02/26/18 08:00 96.8 50 20 117/76 (90) 97 Room Air General Appearance: Alert, Oriented X3, Cooperative Skin: Other (improved erythema and tenderness to cellulitis) Psych/Mental Status: Mood NL Hospital Course Labs Microbiology 02/23/18 Blood Culture - Preliminary, Resulted No growth Radiology Reviewed Date of Exam: 02/23/18 CT ABDOMEN/PELVIS WO PROCEDURE: CT abdomen and pelvis without contrast. TECHNIQUE: Multiple contiguous axial images were obtained through the abdomen and pelvis without the use of intravenous contrast. INDICATION: Abdominal pain status post oophorectomy. COMPARISON: 07/08/2017. FINDINGS: Evaluation of the abdominal viscera is mildly limited without contrast. Lower chest: The lung bases are clear. No pericardial or pleural effusion. Peritoneum: No free intraperitoneal air or fluid. No loculated fluid within the abdomen or pelvis to indicate abscess. Liver and biliary system: Unenhanced liver is normal. The gallbladder is normal. No biliary duct dilation. Spleen and Pancreas: Spleen is normal. Unenhanced pancreas is grossly normal. Adrenals: Normal. tract: No renal or ureteral calculi. No obstructive uropathy. Uterus is normal in appearance. In the left adnexa there is a 3.4 x 2.7 cm cystic structure which appears to be in close communication with the left gonadal vein which would be most compatible with an ovarian cyst. GI tract: Stomach is decompressed. No bowel obstruction. No pericolonic inflammatory changes. Normal appendix. Vasculature and Lymph nodes: Normal caliber aorta. No abdominal or pelvic lymphadenopathy. Musculoskeletal: No concerning osseous lesion. Linear laparotomy scar is present in the midline of the lower abdomen. IMPRESSION: 1. No free fluid or loculated fluid collections in the abdomen or pelvis to indicate abscess. 2. Left adnexal cystic focus measures 3.4 x 2.7 cm. By imaging, this has features most compatible with a normal left ovarian follicle with surrounding normal ovarian tissue. However, correlation with patient's surgical history is advised to determine if the patient still has a left ovary. On CT from 07/08/2017, the ruptured ovary cyst appeared to be the right ovary rather than the left. 3. Findings are in agreement with the preliminary report. Discharge Instructions to patient/family Please see electronic discharge instructions given to patient. Discharge Medications Reviewed and agree with Discharge Medication list on patient's Discharge Instruction sheet Clinical Quality Measures DVT/VTE Risk/Contraindication: Risk Factor Score Per Nursin RFS Level Per Nursing on Admit: 4+=Very High SANTO BHATTI DO Feb 26, 2018 10:41
[2018-02-26 11:26] VITALS: BP 117/76
== END 2018-02-26 10:36 | disposition home or self-care (01) ==
LOC: EDUNIT# 20:22 → ER 20:24 → 4TH 23:45
PROVIDERS: ADMIT Family Medicine; ATTEND Family Medicine
DX: L03.311 Cellulitis of abdominal wall (principal); N83.202 Unspecified ovarian cyst, left side; E66.01 Morbid (severe) obesity due to excess calories; Z68.43 Body mass index [BMI] 50.0-59.9, adult
CPT/HCPCS: 36415; 74176; 80048; 80053; 81000; 82962; 83605; 84703; 85007; 85025; 85027; 85610; 85730; 86141; 87040; 96361; 96365; G0378

== ENCOUNTER 2019-05-08 14:08 | Emergency (ER) | payer OTHER ==
[~2019-05-08] VITALS: Ht 167.6 cm; Wt 142.9 kg
[~2019-05-08 14:08] MED LIST changes: +FLUC100T6 PO; -OXYC-197 PO; +OXYC1TAB87 PO
--- NOTE | 2019-05-08 14:22 | ED Integumentary General ---
General Chief Complaint: Bite-Animal/Human/Insect Stated Complaint: BUG BITE;ALLERGIC REACTION Nursing Triage Note: HORSEFLY BITE TO RIGHT CALF APPC 1245. PT COMPLAINS OF DIZZINESS AFTER THE BITE. TOOK X2 BENADRYL AT 1315. Source: patient Exam Limitations: no limitations History of Present Illness Date Seen by Provider: May 08, 2019 Time Seen by Provider: 14:22 Initial Comments Bitten by a horsefly to the right calf at 1:15. She took 2 Benadryl at home. States she has a history of rather pronounced skin inflammation after any sort of insect bite. The area is very itchy Timing/Duration: just prior to arrival Severity: moderate Location: extremities Associated Symptoms: denies symptoms Allergies and Home Medications Allergies Coded Allergies: Iodinated Contrast- Oral and IV Dye (Verified Allergy, Unknown, 07/08/17) Home Medications Fluconazole 100 Mg Tablet, 100 MG PO DAILY Prescribed by: SANTO BHATTI on 02/26/18 1035 Sulfamethoxazole/Trimethoprim 1 Each Tablet, 1 EA PO BID WITH MEALS Prescribed by: SANTO BHATTI on 02/26/18 1035 Patient Home Medication List Home Medication List Reviewed: Yes Review of Systems Review of Systems Constitutional: see HPI EENTM: see HPI Respiratory: no symptoms reported Cardiovascular: no symptoms reported Musculoskeletal: no symptoms reported Skin: see HPI Psychiatric/Neurological: No Symptoms Reported Past Cjstgcz-Nbifes-Kshssv Hx Patient Social History Alcohol Use: Denies Use Recreational Drug Use: No Smoking Status: Never a Smoker 2nd Hand Smoke Exposure: No Recent Foreign Travel: No Contact w/Someone Who Travel: No Recent Infectious Disease Expo: No Recent Hopitalizations: Yes (EXPL LAP ON 07/25/17) Immunizations Up To Date Tetanus Booster (TDap): Unknown Date of Influenza Vaccine: Jun 28, 2017 Seasonal Allergies Seasonal Allergies: Yes Past Medical History Surgeries: Yes (T & A 2001 WISDOM TEETH 2009) Oophorectomy Respiratory: No Cardiac: No Neurological: No Reproductive Disorders: No Female Reproductive Disorders: Denies Genitourinary: Yes Kidney Stones Gastrointestinal: No Musculoskeletal: No Endocrine: No HEENT: No Cancer: No Psychosocial: No Integumentary: No Blood Disorders: No Family Medical History Diabetes mellitus 19 FATHER Guillain-Tolna syndrome 19 MOTHER Physical Exam Vital Signs Vital Signs - First Documented 05/08/19 14:13 Temp 97.7 Pulse 98 Resp 16 B/P (MAP) 145/107 (120) Pulse Ox 97 O2 Delivery Room Air Capillary Refill : Less Than 3 Seconds General Appearance: WD/WN, no apparent distress HEENT: PERRL/EOMI, normal ENT inspection Neck: non-tender, full range of motion Respiratory: no respiratory distress, no accessory muscle use Gastrointestinal: non tender, soft Neurologic/Psychiatric: alert, normal mood/affect, oriented x 3 Skin: normal color, warm/dry Skin Problem Character: urticarial (there is a single wheel to the posterior right calf approximately 10-15 cm in diameter that is elevated, slightly erythematous and intensely pruritic. No lymphangitis) Progress/Results/Core Measures Results/Orders My Orders Orders - ULYSSES BUSTILLO APRN Betamethasone Acet/Na Phos Inj ([place] (05/08/19 14:30) Vital Signs/I&O 05/08/19 14:13 Temp 97.7 Pulse 98 Resp 16 B/P (MAP) 145/107 (120) Pulse Ox 97 O2 Delivery Room Air Blood Pressure Mean: 120 Departure Impression Primary Impression: Localized allergic reaction Disposition: 01 HOME, SELF-CARE Condition: Stable Departure-Patient Inst. Decision time for Depature: 14:24 Referrals: [facility] (PCP/Family) Primary Care Physician Patient Instructions: Insect Bites and Stings (DC) Add. Discharge Instructions: 1. Cool compresses to the area 2. Return to ER for any worsening. All discharge instructions reviewed with patient and/or family. Voiced understanding. ULYSSES BUSTILLO APRN May 08, 2019 14:22
[2019-05-08] MEDS ORDERED: BETAMETHASONE ACE/NA PHOS 6 MG/ML (CELESTONE SOLUSPAN) IM ONE (14:30)
[2019-05-08 14:50] VITALS: BP 145/107
== END 2019-05-08 14:50 | disposition home or self-care (01) ==
LOC: ER 14:08
DX: T78.49XA Other allergy, initial encounter (principal); Z91.041 Radiographic dye allergy status; Z87.442 Personal history of urinary calculi
CPT/HCPCS: 99284

== ENCOUNTER → 2020-07-03 | Outpatient (CLI) | payer OTHER ==
--- NOTE | 2020-07-03 11:39 | Diagnostic Imaging Report ---
EXAMINATION: CT Chest without contrast. TECHNIQUE: Multiple contiguous axial images were obtained through the chest without the use of intravenous contrast. All CT scans use one or more of the following dose optimizing techniques: automated exposure control, MA and/or KvP adjustment based on a patient size and exam type, or iterative reconstruction. HISTORY: PERSISTENT COUGH COMPARISON: Chest radiograph 05/21/2015 FINDINGS: Thyroid: The thyroid is normal. Mediastinum: Heart size is normal without significant pericardial effusion. The aorta is normal in caliber. No suspicious lymphadenopathy. Lungs and airways: The lungs are clear without consolidation, pleural effusion, or pneumothorax. The airways are normal. Upper abdomen: Hepatic steatosis Musculoskeletal: No suspicious osseous lesion or compression fracture. IMPRESSION: 1. No acute abnormality in the chest. 2. Hepatic steatosis. Dictated by: Dictated on workstation # [id number]
== END ==
LOC: RAD 10:27
PROVIDERS: ATTEND Family Medicine
DX: K76.0 Fatty (change of) liver, not elsewhere classified (principal); R05 Cough
CPT/HCPCS: 71250

== ENCOUNTER → 2020-09-08 | Outpatient (CLI) | payer OTHER ==
[~2020-09-08] MED LIST changes: +RT-ALBUTEROL SULF 2.5 MG/3 ML PRE-MIX VIAL INH ONE
== END ==
LOC: RT 10:06
PROVIDERS: ATTEND Internal Medicine Critical Care Medicine
DX: Z13.83 Encounter for screening for respiratory disorder NEC (principal); R06.00 Dyspnea, unspecified
CPT/HCPCS: 94060; 94726; 94729

== ENCOUNTER → 2021-06-30 | Outpatient (CLI) | payer OTHER ==
[~2021-06-30] MED LIST changes: -RT-ALBUTEROL SULF 2.5 MG/3 ML PRE-MIX VIAL INH ONE; -SULF1TAB35 PO; +SULF1TAB38 PO
--- NOTE | 2021-06-30 11:10 | Diagnostic Imaging Report ---
PROCEDURE: US Non-ob pelvis comp/trans. TECHNIQUE: Multiple realtime grayscale images were obtained of the pelvis in various projections endovaginally. Transabdominal imaging was also performed. INDICATION: Pelvic pain. COMPARISON: There are no recent pelvic ultrasound examinations available for comparison. FINDINGS: The uterus is nongravid and not enlarged measuring 8.1 x 4.1 x 4.8 cm. The endometrial lining is not thickened measuring 3 mm. There is no focal mass involving the uterus. By history, the right ovary is surgically absent. There is a 3.0 x 3.7 x 2.6 cm cyst associated with the left ovary. This cyst has a generally benign appearance. There is no solid pelvic mass or free fluid collection noted. IMPRESSION: 1. There is a 3.0 x 3.7 x 2.6 cm benign-appearing cyst associated with the left ovary. There is no acute pelvic abnormality noted, otherwise. 2. By history, the right ovary is surgically absent. Dictated by: Dictated on workstation # [id number]
== END ==
LOC: RAD 10:00
PROVIDERS: ATTEND Obstetrics & Gynecology
DX: N83.202 Unspecified ovarian cyst, left side (principal); Z85.43 Personal history of malignant neoplasm of ovary; Z90.721 Acquired absence of ovaries, unilateral
CPT/HCPCS: 76830; 76856

== ENCOUNTER → 2023-02-17 | Outpatient (CLI) | payer OTHER ==
[~2023-02-17] MED LIST changes: +FLUC100T10 PO; -FLUC100T6 PO
--- NOTE | 2023-02-17 15:24 | Diagnostic Imaging Report ---
PROCEDURE: Pelvic comp/transvaginal sonogram. TECHNIQUE: Complete transabdominal and transvaginal pelvic ultrasound was performed. In addition, limited pelvic Doppler was performed. INDICATION: Abnormal uterine bleeding. Patient has had prior right oophorectomy in 2017. Uterus is anteverted measuring 8.2 x 3.4 x 4.2 cm. Endometrium is 6 mm in thickness. No myometrial mass is identified. Right ovary is surgically absent. Left ovary measures 4.0 x 3.5 x 2.6 cm. Left ovary does contain a 3.9 cm cyst. There is blood flow to the left ovary. Cervix does contain a 9 mm cyst. There is no free fluid. IMPRESSION: 1. Surgically absent right ovary. 2. A 3.9 cm left ovarian cyst. Dictated by: Dictated on workstation # [id number]
== END ==
LOC: RAD 11:27
PROVIDERS: ATTEND Obstetrics & Gynecology
DX: N83.202 Unspecified ovarian cyst, left side (principal); Z90.721 Acquired absence of ovaries, unilateral
CPT/HCPCS: 76830; 76856

== ENCOUNTER 2023-03-16 05:46 | Outpatient (CLI) | payer OTHER ==
[~2023-03-16] VITALS: Ht 167.7 cm; Wt 157.2 kg
[2023-03-17] MEDS ORDERED: LIRA0.6P SQ (13:49)
[2023-03-17] MEDS ORDERED: NAPR-1073 PO (13:49)
[2023-03-17] MEDS ORDERED: CETI10CA PO (13:49)
[2023-03-17] MEDS ORDERED: RT-ALBUINH INH (13:59)
[2023-03-17] MEDS ORDERED: DICL20GE TP (14:02)
[2023-03-22] MEDS ORDERED: SIME80TA16 PO (10:46)
[2023-03-22] MEDS ORDERED: IBUP-844 PO (10:46)
[2023-03-22] MEDS ORDERED: HYDR-34 PO (10:46)
[2023-03-22] MEDS ORDERED: DOCU100C37 PO (10:46)
[2023-03-22] MEDS ORDERED: FLUC150T PO (11:06)
[2023-03-23] MEDS ORDERED: AMLO5TAB4 PO (07:15)
== END 2023-03-17 14:41 | disposition home or self-care (01) ==
LOC: PREOP 05:46
PROVIDERS: ATTEND Obstetrics & Gynecology
DX: Z01.818 Encounter for other preprocedural examination (principal)

== ENCOUNTER 2023-03-22 09:19 | Day surgery (SDC) | payer OTHER ==
[~2023-03-22] VITALS: Ht 167.7 cm; Wt 154.3 kg
[2023-03-22] VITALS (14 sets, daily range): BP systolic 137–176; BP diastolic 67–91
[~2023-03-22 09:19] MED LIST changes: +CETI10CA PO; +DICL20GE TP; +LIRA0.6P SQ; +NAPR-1073 PO; +RT-ALBUINH INH
[2023-03-22] MEDS ORDERED: LACTATED RINGERS 1,000 ML IV PRN (10:00)
[2023-03-22] MEDS ORDERED: ceFAZolin INJECTION 2,000 MG in NS (IVPB) 50 ML IV ONE (10:00)
[2023-03-22] MEDS ORDERED: metroNIDAZOLE 500MG/100ML IVPB 100 ML IV ONE (10:00)
[2023-03-22 10:07] LABS: BASOPHILS # (AUTO) 0.1 10^3/uL (0.0-0.1); BASOPHILS % (AUTO) 1 % (0-10); EOSINOPHILS # (AUTO) 0.4 10^3/uL (0.0-0.3); EOSINOPHILS % (AUTO) 4 % (0-10); HEMATOCRIT 40 % (35-52); HEMOGLOBIN 13.6 g/dL (11.5-16.0); LYMPHOCYTES # (AUTO) 2.5 10^3/uL (1.0-4.0); LYMPHOCYTES % (AUTO) 26 % (12-44); MEAN CORPUSCULAR HEMOGLOBIN 30 pg (25-34); MEAN CORPUSCULAR HGB CONC 34 g/dL (32-36); MEAN CORPUSCULAR VOLUME 88 fL (80-99); MONOCYTES # (AUTO) 0.5 10^3/uL (0.0-1.0); MONOCYTES % (AUTO) 5 % (0-12); NEUTROPHILS # (AUTO) 6.3 10^3/uL (1.8-7.8); NEUTROPHILS % (AUTO) 64 % (42-75); PLATELET COUNT 332 10^3/uL (130-400); WHITE BLOOD COUNT 9.9 10^3/uL (4.3-11.0)
--- NOTE | 2023-03-22 10:42 | Progress Note-Pre Operative ---
Pre-Operative Progress Note Date of Available H&P: Mar 22, 2023 Date H&P Reviewed: Mar 22, 2023 Time H&P Reviewed: 10:35 History & Physical: H&P Reviewed, Patient Examed, No changes noted Pre-Operative Diagnosis: AUB-Menorrhagia, POP, CPP, Ovarian cyst, BMI >50 RAF PEREZ DO Mar 22, 2023 10:42
[2023-03-22] MEDS ORDERED: IBUPROFEN 600 MG (MOTRIN) TAB PO PRN (10:45)
[2023-03-22] MEDS ORDERED: ZOLPIDEM 5 MG (AMBIEN) TAB PO PRN (10:45)
[2023-03-22] MEDS ORDERED: ONDANSETRON 4 MG/2 ML (SDV) Z0FRAN IV PRN (10:45)
[2023-03-22] MEDS ORDERED: SIMETHICONE 80 MG (MYLICON) CHEW PO PRN (10:45)
[2023-03-22] MEDS ORDERED: ANTACID SUSP 30 ML UDC (MYLANTA) PO PRN (10:45)
[2023-03-22] MEDS ORDERED: BENZOCAINE LOZENGES 1 EACH LOZENGE MM PRN (10:45)
[2023-03-22] MEDS ORDERED: HYDROmorphone 2 MG/ML VIAL (DILAUDID) IV PRN (10:45)
[2023-03-22] MEDS ORDERED: DOCUSATE SODIUM 100 MG (COLACE) CAP PO PRN (10:45)
--- NOTE | 2023-03-22 10:45 | Discharge Inst-[facility] ---
Discharge Inst-Women's Serv Depart Medication/Instructions New, Converted or Re-Newed RX: Transmitted to Pharmacy Problems Reviewed?: Yes Consults/Follow Up Additional Follow Up: Yes Orders/Referrals Dr. Doyle in 7-10 days and in 8 weeks Activity Activity: Activity as Tolerated Driving Instructions: No Driving for 1 Week NO SMOKING: NO SMOKING Nothing Inside Vagina: No Douching, No Arp, No Tampons Diet Discharge Diet: No Restrictions Symptoms to Report to : Bleeding Excessive, Pain Increased, Fever Over 101 Degrees F, Vaginal Bleeding Increase, Questions/Concerns For Any Problems or Questions: Contact Your Physician Skin/Wound Care Infection Signs and Symptoms: Increased Redness, Foul Odor of Wound, Increased Drainage, Skin Itchy or Has a Rash, Increased Swelling, Temperature Above 101 F Operative Area Clean and Dry: Keep Incision Clean/Dry Stitches/Jeff/Dermabond: Dermabond, Care of Stitches Bathing Instructions: RAF Huang DO Mar 22, 2023 10:45
[2023-03-22] MEDS ORDERED: DOCU100C37 PO (10:46)
[2023-03-22] MEDS ORDERED: IBUP-844 PO (10:46)
[2023-03-22] MEDS ORDERED: HYDR-34 PO (10:46)
[2023-03-22] MEDS ORDERED: SIME80TA16 PO (10:46)
[2023-03-22] MEDS ORDERED: BUPIVACAINE 0.25% 30 ML (SENSORCAINE) VIAL ONE (10:51)
[2023-03-22] MEDS ORDERED: MIDAZOLAM 2 MG/2 ML (VERSED) VIAL ONE (10:52)
[2023-03-22] MEDS ORDERED: ONDANSETRON 4 MG/2 ML (SDV) Z0FRAN ONE (10:52)
[2023-03-22] MEDS ORDERED: SEVOFLURANE (ULTANE) 15 ML INHAL SOLN ONE ×2 (10:52→12:19)
[2023-03-22] MEDS ORDERED: proPOfol 200 MG/20 ML (DIPRIVAN) VIAL IV ONE (10:52)
[2023-03-22] MEDS ORDERED: LIDOCAINE PF 2% 5 ML (XYLOCAINE) VIAL ONE (10:52)
[2023-03-22] MEDS ORDERED: fentaNYL INJ 100 MCG/2 ML AMP ONE (10:52)
[2023-03-22] MEDS ORDERED: SUCCINYLCHOLINE INJ 20 MG/1 ML 10 ML VIAL ONE (10:53)
[2023-03-22] MEDS ORDERED: FLUC150T PO (11:06)
[2023-03-22] MEDS ORDERED: HYDROCORTISONE 100 MG/2 ML (Solu-CORTEF) VIAL ONE (11:27)
[2023-03-22] MEDS ORDERED: ROCURONIUM 50 MG/5 ML (ZEMURON) VIAL IV ONE (11:27)
[2023-03-22] MEDS ORDERED: HYDROmorphone 2 MG/ML VIAL (DILAUDID) ONE (11:36)
[2023-03-22] MEDS ORDERED: SUGAMMADEX 500 MG/5 ML VIAL (BRIDION) IV ONE (12:13)
[2023-03-22] MEDS ORDERED: PHENYLEPHRINE 100 MCG/ML 10 ML (ANESTHESIA) SYR ONE (12:24)
[2023-03-22] MEDS ORDERED: KETOROLAC 30 MG/ML VIAL ONE (12:46)
[2023-03-22] MEDS: KETOROLAC 30 MG/ML VIAL IVP PRN (12:49)
[2023-03-22] MEDS: LACTATED RINGERS 1,000 ML IV SCH ×2 (14:28→19:00)
[2023-03-22] MEDS ORDERED: amLODIPine 5 MG (NORVASC) TAB PO ONE (19:00)
[2023-03-22] MEDS: HYDROcodone/APAP 7.5 MG/325 MG (LORTAB, LORCET PLUS) TABLET PO PRN (20:27)
--- NOTE | 2023-03-22 20:32 | OPERATIVE REPORT ---
DATE OF SERVICE: 03/22/2023 PREOPERATIVE DIAGNOSES: 1. A 37-year-old female with abnormal uterine bleeding. 2. Menorrhagia. 3. Chronic pelvic pain. 4. History of large ovarian mass on the right side. 5. History of laparotomy. 6. BMI greater than 50. POSTOPERATIVE DIAGNOSES: 1. A 37-year-old female with abnormal uterine bleeding. 2. Menorrhagia. 3. Chronic pelvic pain. 4. History of large ovarian mass on the right side. 5. History of laparotomy. 6. BMI greater than 50. PROCEDURE: Robotic-assisted total laparoscopic hysterectomy with left salpingo-oophorectomy. SURGEON: Morgan Perez DO ANESTHESIA: General endotracheal. ESTIMATED BLOOD LOSS: Minimal. URINE OUTPUT: 150 mL clear at the end of the procedure. FLUIDS: 1000 mL lactated Ringer's solution. FINDINGS: Slightly hyperemic-appearing uterus, grossly normal-appearing left fallopian tube, left ovarian cystic structure and enlarged left ovary, absent right ovary and fallopian tube, grossly normal-appearing external female genitalia. SPECIMEN SENT: Uterus, left tube and ovary. INDICATIONS FOR PROCEDURE: This 37-year-old female. The patient sought care in my office for ongoing issues with heavy bleeding and concerns of pelvic organ prolapse, pelvic pressure, chronic pelvic pain. The patient described a history of approximately 5 years ago undergoing an exploratory laparotomy for an enlarged right ovary they suspected to be cancer. She was open midline laparotomy as suspicion was high enough of the anticipating performing a staging procedure. However, this was found to not be malignant and the procedure was completed without complication with the exception of a long drawn out recovery to the patient's size in midline laparotomy. The patient continues to have heavy bleeding and pain. She was undergoing trial of IUD, oral contraceptive pills in the past and due to her body habitus, findings extremely difficult when she becomes anemic to ambulate and her medical comorbidities are making alternatives to become fewer and fewer. She also an increased risk for endometrial hyperplasia due to her size. I discussed with the patient proceeding with hysterectomy. She wished to have the left ovary removed due to concerns of future neoplasm as the one that had occurred with the right ovary. I discussed with the patient the significant risk in the third decade of life undergoing a complete hormone withdrawal. The patient demonstrates understanding for this and still wishes to proceed. Risks of the procedure itself was discussed with the patient in detail including risk of bleeding, infection, damage to surrounding structures including but not limited to bowel, bladder, ureter, kidneys, possible need for reoperation, postoperative complications that may occur, recovery timeframe, risk from anesthesia and even were all discussed, everything was discussed with the patient in detail and she was agreeable to proceed. Consent was obtained. The patient was taken to the operating room. OPERATIVE DESCRIPTION IN DETAIL: Once in the operating room, general anesthesia was administered and found to be adequate. She was placed in the dorsal lithotomy position, prepped and draped in normal sterile fashion. A timeout was performed. Conner catheter was placed using sterile technique. A weighted speculum inserted to the patient's vagina, which allows me to place an 0 Vicryl suture to the anterior lip of the cervix, which is my retraction. I then gently sound the uterine cavity depth was found to be 8 cm. I selected an 8 cm BETTYE uterine manipulator tip and a 3.5 cm colpotomy ring. The manipulator tip was advanced into the uterus, the balloons deployed and the colpotomy ring was advanced around the vaginal fornix. I then performed a change of gloves. I turned my attention to the abdomen after I removed all other instruments from the patient's vagina. Once the patient's abdomen, subcostally at the midclavicular line on the left side, I introduced the Veress needle through the skin until intraperitoneal placement confirmed using saline drop test. An opening pressure of 4 mmHg was noted. I proceeded with CO2 insufflation to max pressure of 15 mmHg, at which point I make a supraumbilical 8 mm incision with a knife. This was slightly deviated to the left due to a midline laparotomy incision. I then introduced a blunt laparoscopic 8 mm da Tomas camera trocar through the incision to ensure proper placement was confirmed using the da Tomas laparoscope. There was no evidence of damage from entry site. A brief scan of the upper abdominal anatomy appears grossly normal. There is no evidence of damage upon the Veress entry site. There is a midline adhesion that extends down to the level of the umbilicus, maybe even slightly more caudad; however, I am able to go around this with da Tomas laparoscope and identified the right and left sidewalls were introduced an 8 mm trocar through the skin after incisions were made and these were both placed under direct visualization laparoscope. Once both of these were in place, I placed the patient in steep Trendelenburg, where I am able to visualize all my pelvic anatomy as defined in my findings above. I bring in the da Tomas robot and docked in appropriate fashion, placing the SynchroSeal device in left hand, monopolar kandice in the right. I performed the following dissection on the left, starting at the infundibulopelvic ligament, I was sealed and transected using a SynchroSeal device. I then grasped the round ligament, which I sealed and transected using SynchroSeal device. The following part of my dissection was performed bilaterally where I the anterior and posterior leaflets of the broad ligament. The anterior leaflet was taken to the anterior vaginal fornix. The posterior leaf was taken around the posterior vaginal fornix. This allows me to dissect back to the peritoneal reflection and skeletonized uterine vessels laterally, which I then sealed and transected using a SynchroSeal device. I then created a colpotomy at 12 o'clock position using monopolar kandice and took this circumferentially around the vaginal fornix amputating the cervix away from the vagina. The entire specimen was then removed through the vagina including the left fallopian tube and ovary. I then closed the vaginal cuff using 2-0 V-Loc in running fashion, after which there was active bleeding from my dissection planes. I then undocked the da Tomas robot and proceeded with remainder of the case laparoscopically. I then copiously irrigated with normal saline. Once again, there was no active bleeding from my dissection planes. I placed Surgiflo hemostatic agent over all my planes of dissection and the patient was taken out of steep Trendelenburg where I released insufflation and removed the lateral trocars under direct visualization, laparoscope. The infraumbilical trocar is left in place to release the remainder of the insufflation and to introduce 10 mL of 0.25% Marcaine in the peritoneal cavity for postoperative pain management. I then removed this trocar as well. The skin reapproximated using 4-0 Monocryl and interrupted subcuticular stitches. Dermabond was applied to the incisions and Band-Aids were placed over the incisions as well. Conner catheter was left in place. The patient tolerated the procedure well and sent to recovery area in stable condition. Lap and sponge count was correct at the end of the procedure. Instrument counts correct as well. Job ID: [id number] DocumentID: [id number] Dictated Date: 03/22/2023 13:25:28 Crown Attacher Date: 03/22/2023 20:30:00 Dictated By: MORGAN PEREZ DO
[2023-03-22] MEDS ORDERED: hydrALAZINE (APESOLINE) 20 MG/ML VIAL IV ONE (20:45)
[2023-03-22] MEDS ORDERED: hydrALAZINE (APESOLINE) 20 MG/ML VIAL ONE (21:13)
[2023-03-23] VITALS: BP 133/64
[2023-03-23] MEDS: KETOROLAC 30 MG/ML VIAL IVP PRN ×2 (00:01→05:50)
[2023-03-23 04:39] VITALS: BP 138/70
[2023-03-23] MEDS: HYDROcodone/APAP 7.5 MG/325 MG (LORTAB, LORCET PLUS) TABLET PO PRN (04:39)
[2023-03-23] MEDS ORDERED: AMLO5TAB4 PO (07:15)
--- NOTE | 2023-03-23 07:28 | Anesthesia-General Post-Op ---
General Patient Condition Mental Status/LOC: Same as Preop Cardiovascular: Satisfactory Nausea/Vomiting: Absent Respiratory: Satisfactory Pain: Controlled Complications: Absent Post Op Complications Complications None Follow Up Care/Instructions Patient Instructions None needed. Anesthesia/Patient Condition Patient Condition Patient is doing well, no complaints, stable vital signs, no apparent adverse anesthesia problems. No complications reported per nursing. D/C home per [facility] [place] Criteria: Yes RAINER CASTELLANOS CRNA Mar 23, 2023 07:28
[2023-03-23 08:35] VITALS: BP 126/65
[2023-03-23] MEDS ORDERED: MUPI15CR11 TP (09:08)
== END 2023-03-23 09:30 | disposition home or self-care (01) ==
LOC: SDC 09:19 → WS 13:30 → LDRP 13:30 → SDC 03-23 09:30
PROVIDERS: ATTEND Obstetrics & Gynecology
DX: N87.9 Dysplasia of cervix uteri, unspecified (principal); N94.5 Secondary dysmenorrhea; N93.9 Abnormal uterine and vaginal bleeding, unspecified; N92.0 Excessive and frequent menstruation with regular cycle; G89.29 Other chronic pain; N73.6 Female pelvic peritoneal adhesions (postinfective); N83.8 Other noninflammatory disorders of ovary, fallopian tube and broad ligament; N83.209 Unspecified ovarian cyst, unspecified side; N94.12 Deep dyspareunia; N81.9 Female genital prolapse, unspecified; N81.11 Cystocele, midline; E66.01 Morbid (severe) obesity due to excess calories; Z68.43 Body mass index [BMI] 50.0-59.9, adult
CPT/HCPCS: 36415; 84703; 85025; 86850; 86900; 86901; 87081; 94664